=== PATIENT | male | born 1955 | race Caucasian/White ===

== ENCOUNTER 2025-07-12 06:01 | Day surgery (SDC) | payer MEDICARE, SELFPAY ==
[2025-07-11 08:10] VITALS: BMI 27.6
[2025-07-12 06:23] LABS: Hematocrit 42.4 % (40-54); Hemoglobin 15.1 g/dL (13.0-16.5); Mean Corp Hgb Conc 35.6 g/dL (32-36); Mean Corpuscular Volume 92.0 fL (80-94); Mean Platelet Vol. 9.1 fl (6.2-12.0); Platelet Count 312 K/mm3 (150-450); RBC Distribution Width CV 13.0 % (11.6-14.6); RBC Distribution Width SD 43.4 fl (35.1-43.9); Red Blood Count 4.61 M/mm3 (4.6-6.2); White Blood Count 6.9 K/mm3 (4.4-11.0)
[2025-07-12 06:42] LABS: Anion Gap 10 (5-15); BUN 26 mg/dL (4-19); BUN/Creat Ratio 20.8 RATIO (10-20); Calcium,Total 9.7 mg/dL (7.6-11.0); Carbon Dioxide 29.1 mmol/L (21.0-32.0); Chloride 104 mmol/L (98-108); Estimated Creatinine Clearance 55.67 ml/min (50-250); Glucose 132 mg/dL (70-99); Potassium 4.1 mmol/L (3.3-5.1)
--- NOTE | 2025-07-12 09:54 | PCM.OPRPT ---
Operative Report (Standard) Operative Information Date of Procedure: 07/12/25 Pre-Operative Diagnosis: History of VTE Post-Operative Diagnosis: Same Surgery/Procedure Performed: Insertion inferior vena cava filter immunochemist: No Type of Anesthesia: Local and Sedation,Conscious Procedure Start Time: 09:00 Procedure Stop Time: :15 Select all DRAINS/GRAFTS/IMPLANTS that apply: Implanted device Implanted device details: Cook Celect IVC Filter Estimated Blood Loss: 2 Specimen collected: No Description of surgery: HPI: Patient is a 70-year-old male with recent pulmonary embolism who had completed his course of anticoagulation. He anticipates having hip replacement surgery the first in the next couple of weeks followed by the contralateral side shortly after. Given his history and the high risk nature of the procedures associated with VTE he is felt to be appropriate for filter placement. Description of procedure: Upon obtaining informed consent and verification of correct patient procedure and site the patient was taken to the [facility] where he was positioned prepped and draped in usual sterile fashion. Timeout was performed upon sedation administered Versed and fentanyl. Skin overlying the right common femoral vein was anesthetized with 1% lidocaine the vessel accessed under ultrasound guidance with a micropuncture needle wire. This was then exchanged for a micropuncture sheath through which hand-injection ilio caval venogram was performed revealing satisfactory positioning with no extravasation or dissection. This also confirmed patent iliac vein and vena cava of normal caliber with no significant tortuosity. Through the micropuncture sheath a J-wire was advanced and the micropuncture sheath exchanged for the dilator for the Cook Celect filter system. This was then exchanged for the Cook delivery sheath advanced into position at the L2 vertebral body. From this position digital traction venacavogram was performed confirming the confluence of the renal veins. This location was marked and the dilator withdrawn. The Cook Celect filter was then advanced and the position deployed below the lowest renal vein. Completion venacavogram confirmed satisfactory positioning with no significant tilt. The sheath was then withdrawn and manual pressure held until hemostasis was observed. The patient was then taken to the recovery area planned discharge to home after bedrest. Surgical Findings: See above Complications Complications: No
== END 2025-07-12 11:25 | disposition home or self-care (01) ==
PROVIDERS: Physician Assistant; PCP Nurse Practitioner Family; Referring Provider Surgery Trauma Surgery; Visit Provider Surgery Trauma Surgery
DX: Z45.89 Encounter for adjustment and management of other implanted devices (principal); Z86.711 Personal history of pulmonary embolism; I10 Essential (primary) hypertension
CPT/HCPCS: 36415; 37191; 76937; 80048; 85027; 99152; 99153; C1880; C1894; Q9967; C1769

== ENCOUNTER 2025-07-18 15:38 | Inpatient (IN) | payer MEDICARE, SELFPAY ==
[2025-07-18] VITALS (14 sets, daily range): BP systolic 121–153; BP diastolic 60–86; PULSE 75–101; RESP 13–23; TEMP 36.3–36.7; O2SAT 96–100; BMI 27.8
--- OUTSIDE RECORDS SUMMARY | 2025-07-18 16:01 | XMS RPT_ITS | CCD ---
Author Organization [facility] Care Team Providers Care Bailer Tenders Supervisor Name Role Phone MARIZOL BURNETT MD Admitting Unavailable RAKEL HOLLIDAY Consulting Unavailable LAURITA PAL, DR BELCHER Attending Unavailable Balderrama, Airam Attending Unavailable Fernandez, Nupur Primary Care Unavailable Fernandez, Nupur Referring Unavailable Marcio, Karena Primary Care Unavailable Balderrama, Airam Consulting Unavailable Cory, Sammy Attending Unavailable [place], Sammy Referring Unavailable Cory, Sammy Consulting Unavailable [place], Sammy Referring Unavailable Marcio, Karena Primary Care Unavailable Balderrama, Airam Consulting Unavailable Cory, Sammy Attending Unavailable FERNANDEZ, NUPUR Referring Unavailable FERNANDEZ, NUPUR Consulting Unavailable STEFANO IQBAL Attending Unavailable STEFANO IQBAL Primary Care Unavailable STEFANO IQBAL Admitting Unavailable PROVIDER, UNKNOWN Consulting Unavailable PROVIDER, UNKNOWN Consulting Unavailable PROVIDER, UNKNOWN Consulting Unavailable MARCIO, KARENA Consulting Unavailable MARCIO, KARENA Referring Unavailable BRANDON PAZ Attending Unavailable BRANDON PAZ Primary Care Unavailable BRANDON PAZ Admitting Unavailable PROVIDER, UNKNOWN Consulting Unavailable MARCIO, KARENA Consulting Unavailable MARCIO, KARENA Referring Unavailable ABIOLA STAPLETON MD Attending Unavailable ABIOLA STAPLETON MD Primary Care Unavailable ABIOLA STAPLETON MD Admitting Unavailable PROVIDER, UNKNOWN Consulting Unavailable MARCIO, KARENA Consulting Unavailable KRISTA KRISHNAMURTHY DR Attending Unavailable KRISTA KRISHNAMURTHY DR Primary Care Unavailable KRISTA KRISHNAMURTHY DR Admitting Unavailable PROVIDER, UNKNOWN Consulting Unavailable MARCIO, KARENA Primary Care Unavailable MARCIO, KARENA Admitting Unavailable MARCIO KARENA Attending Unavailable MARCIO, KARENA Consulting Unavailable PROVIDER, UNKNOWN Consulting Unavailable MARCIO, KARENA Consulting Unavailable KRISTA KRISHNAMURTHY DR Primary Care Unavailable KRISTA KRISHNAMURTHY DR Admitting Unavailable KRISTA KRISHNAMURTHY DR Attending Unavailable PROVIDER, UNKNOWN Consulting Unavailable MARCIO, KARENA Consulting Unavailable MARCIO, KARENA Primary Care Unavailable MARCIO, KARENA Admitting Unavailable MARCIO, KARENA Attending Unavailable PROVIDER, UNKNOWN Consulting Unavailable MARCIO, KARENA Consulting Unavailable KRISTA KRISHNAMURTHY DR Attending Unavailable KRISTA KRISHNAMURTHY DR Primary Care Unavailable KRISTA KRISHNAMURTHY DR Admitting Unavailable PROVIDER, UNKNOWN Consulting Unavailable MARCIO, KARENA Primary Care Unavailable MARCIO, KARENA Admitting Unavailable MARCIO, KARENA Attending Unavailable MARCIO, KARENA Consulting Unavailable PROVIDER, UNKNOWN Consulting Unavailable MARCIO, KARENA Consulting Unavailable KRISTA KRISHNAMURTHY DR Attending Unavailable KRISTA KRISHNAMURTHY DR Primary Care Unavailable KRISTA KRISHNAMURTHY DR Admitting Unavailable PROVIDER, UNKNOWN Consulting Unavailable MARCIO, KARENA Consulting Unavailable MARCIO, KARENA Primary Care Unavailable MARCIO, KARENA Admitting Unavailable MARCIO, KARENA Attending Unavailable PROVIDER, UNKNOWN Consulting Unavailable MARCIO, KARENA Consulting Unavailable MARCIO, KARENA Referring Unavailable BRANDON PAZ Attending Unavailable BRANDON PAZ Primary Care Unavailable BRANDON PAZ Admitting Unavailable PROVIDER, UNKNOWN Consulting Unavailable Medications Current Medications Medication Drug Class(es) Dates Sig (Normalized) Sig (Original) acetaminophen 325 mg / HYDROcodone bitartrate 10 mg oral tablet (1 source) Opioid Agonist Start: 04-15-2025 acetaminophen-h ydrocodone 325 mg-10 mg oral tablet 0 Refill(s) Start Date: 04/15/25 Status: Ordered Repeat number: 1 apixaban 5 mg oral tablet (1 source) Factor Xa Inhibitor Start: 04-15-2025 Eliquis 5 mg oral tablet Dose : 5 mg = 1 tab(s), Oral, BID, 0 Refill(s) Start Date: 04/15/25 Status: Ordered Repeat number: 1 hydroCHLOROthiazide 25 mg / losartan potassium 100 mg oral tablet (1 source) Thiazide Diuretic, Angiotensin 2 Receptor Jerry Start: 04-15-2025 take 1 tablet by mouth once daily hydrochlorothia zide-losartan 25-100 mg oral tablet Dose = 1 tab(s), Oral, qDay, 0 Refill(s) Start Date: 04/15/25 Status: Ordered Repeat number: 1 Problems Active Problems Problem Classification Problem Date Documented Da te Episodic/Chronic Essential hypertension (5 sources) Essential (primary) hypertension; Translations: [Essential (primary) hypertension] Onset: 10-26-2024 Chronic Nonspecific chest pain (1 source) Other chest pain; Translations: [Other chest pain] Onset: 04-15-2025 Episodic Osteoarthritis (1 source) Unilateral primary osteoarthritis, left hip; Translations: [Unilateral primary osteoarthritis, left hip] Onset: 11-21-2024 Chronic Phlebitis; thrombophlebitis and thromboembolism (3 sources) Personal history of other venous thrombosis and embolism; Translations: [Personal history of other venous thrombosis and embolism] Onset: 04-15-2025 Episodic Pulmonary heart disease (2 sources) Personal history of pulmonary embolism; Translations: [Other pulmonary embolism without acute cor pulmonale] Onset: 04-15-2025 Episodic Past or Other Problems Problem Classification Problem Date Documented Date Episodic/Chronic Abdominal hernia (1 source) Unspecified abdominal hernia without obstruction or gangrene; Translations: [Unspecified abdominal hernia without obstruction or gangrene] Onset: 09-20-2024 Episodic Genitourinary symptoms and ill-defined conditions (1 source) Urgency of urination; Translations: [Urgency of urination] Onset: 10-26-2024 Episodic Noninfectious gastroenteritis (3 sources) Noninfective gastroenteritis and colitis, unspecified; Translations: [Noninfective gastroenteritis and colitis, unspecified] Onset: 09-20-2024 Episodic Other aftercare (1 source) Other senior living (current) drug therapy; Translations: [Other continuous churn buttermaker (current) drug therapy] Onset: 11-21-2024 Episodic Other non-traumatic joint disorders (1 source) Pain in right hip; Translations: [Pain in right hip] Onset: 10-26-2024 Episodic Other non-traumatic joint disorders (1 source) Pain in left hip; Translations: [Pain in left hip] Onset: 10-26-2024 Episodic Other screening for suspected conditions (not mental disorders or infectious disease) (2 sources) Encounter for screening for lipoid disorders; Translations: [Encounter for screening for malignant neoplasm of prostate] Onset: 10-26-2024 Episodic Spondylosis; intervertebral disc disorders; other back problems (1 source) Lumbago with sciatica, unspecified side; Translations: [Lumbago with sciatica, unspecified side] Onset: 10-26-2024 Episodic Results Test Name Value Interpretation Reference Range Facility Basic Metabolic Profile (BMP )on 07-12-2025 BUN/CRE 20.8 RATIO High 07-17 [facility] Comment on above: Performed By: #### L 500.2500, L100.0500 #### [facility] [address] [place], [address] Calcium [Mass/Vol] 9.7 mg/dL Normal 7.6-11.0 [facility] Comment on above: Performed By: #### L 500.2500, L100.0500 #### [facility] [address] [place], [address] Chloride [Moles/Vol] 104 mmol/L Normal 98-108 [facility] Comment on above: Performed By: #### L 500.2500, L100.0500 #### [facility] [address] [place], [address] CO2 [Moles/Vol] 29.1 mmol/L Normal 21.0-32.0 [facility] Comment on above: Performed By: #### L 500.2500, L100.0500 #### [facility] [address] [place], [address] Creatinine [Mass/Vol] 1.27 mg/dL High 0.70-1.20 [facility] Comment on above: Performed By: #### L 500.2500, L100.0500 #### [facility] [address] [place], [address] ECRCL 55.67 ml/min Normal 50-250 [facility] Comment on above: Performed By: #### L 500.2500, L100.0500 #### [facility] [address] [place], [address] GAP 10 Normal 5-15 [facility] Comment on above: Performed By: #### L 500.2500, L100.0500 #### [facility] [address] [place], [address] GFR/1.73 sq M.predicted among non-blacks MDRD (S/P/Bld) [Vol rate/Area] 62 mL/min/{1.73_m2} Normal >60 [facility] Comment on above: Result Comment: mL/m in/1.73m2 CKD-EPI Creatinine Equation (2020) Performed By: #### L 500.2500, L100.0500 #### [facility] [address] [place], [address] Glucose [Mass/Vol] 132 mg/dL High 70-99 [facility] Comment on above: Performed By: #### L 500.2500, L100.0500 #### [facility] [address] [place], [address] Potassium [Moles/Vol] 4.1 mmol/L Normal 3.3-5.1 [facility] Comment on above: Performed By: #### L 500.2500, L100.0500 #### [facility] [address] [place], [address] Sodium [Moles/Vol] 143 mmol/L Normal 133-145 [facility] Comment on above: Performed By: #### L 500.2500, L100.0500 #### [facility] [address] [place], [address] Urea nitrogen [Mass/Vol] 26 mg/dL High 4-19 [facility] Comment on above: Performed By: #### L 500.2500, L100.0500 #### [facility] [address] [place], [address] CBC-Complete Blood Cnt No Di ffon 07-12-2025 Erythrocyte distribution width (RBC) [Ratio] 13.0 % Normal 11.6-14.6 [facility] Comment on above: Performed By: #### L 500.2500, L100.0500 #### [facility] [address] [place], [address] Hematocrit (Bld) [Volume fraction] 42.4 % Normal 40-54 [facility] Comment on above: Performed By: #### L 500.2500, L100.0500 #### [facility] [address] [place], [address] Hemoglobin (Bld) [Mass/Vol] 15.1 g/dL Normal 13.0-16.5 [facility] Comment on above: Performed By: #### L 500.2500, L100.0500 #### [facility] [address] [place], [address] MCH (RBC) [Entitic mass] 32.8 pg High 27.0-32.0 [facility] Comment on above: Performed By: #### L 500.2500, L100.0500 #### [facility] [address] [place], [address] MCHC (RBC) [Mass/Vol] 35.6 g/dL Normal 32-36 [facility] Comment on above: Performed By: #### L 500.2500, L100.0500 #### [facility] [address] [place], [address] MCV (RBC) [Entitic vol] 92.0 fL Normal 80-94 [facility] Comment on above: Performed By: #### L 500.2500, L100.0500 #### [facility] [address] [place], [address] Platelet mean volume (Bld) [Entitic vol] 9.1 fL Normal 6.2-12.0 [facility] Comment on above: Performed By: #### L 500.2500, L100.0500 #### [facility] [address] [place], [address] Platelets (Bld) [#/Vol] 312 10*3/uL Normal 150-450 [facility] Comment on above: Performed By: #### L 500.2500, L100.0500 #### [facility] [address] [place], [address] RBC (Bld) [#/Vol] 4.61 10*6/uL Normal 4.6-6.[address] [facility] Comment on above: Performed By: #### L 500.2500, L100.0500 #### [facility] [address] [place], [address] RDW SD 43.4 fl Normal 35.1-43.9 [facility] Comment on above: Performed By: #### L 500.2500, L100.0500 #### [facility] [address] [place], [address] WBC (Bld) [#/Vol] 6.9 10*3/uL Normal 4.4-11.0 [facility] Comment on above: Performed By: #### L 500.2500, L100.0500 #### [facility] [address] [place], [address] Operative Reporton 5 Operative Report [facility] Medical Records Department [address] [place] [address] Operative Report 07/12/25 0954 MR#: [id number] Acct: [id number] Name: MIAN FOSS Rep #: [id number] : 1955 70 From: Sammy Ray MD PCP: MAURICE Bonner Status:[employer] Location: [facility] Operative Report (Standard) Operative Information Date of Procedure: 07/12/25 Pre-Operative Diagnosis: History of VTE Post-Operative Diagnosis: Same Surgery/Procedure Performed: Insertion inferior vena cava filter 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 He anticipates having hip replacement surgery the first in the next couple of weeks followed by the contralateral side shortly after. Given his history and the high risk nature of the procedures associated with VTE he is felt to be appropriate for filter placement. Description of procedure: Upon obtaining informed consent and verification of correct patient procedure and site the patient was taken to the Director Of Instructional Technology where he was positioned prepped and draped in usual sterile fashion. Timeout was performed upon sedation administered Versed and fentanyl. Skin overlying the right common femoral vein was anesthetized with 1% lidocaine the vessel accessed under ultrasound guidance with a micropuncture needle wire. This was then exchanged for a micropuncture sheath through which hand-injection ilio caval venogram was performed revealing satisfactory positioning with no extravasation or dissection. This also confirmed patent iliac vein and vena cava of normal caliber with no significant tortuosity. Through the micropuncture sheath a J-wire was advanced and the micropuncture sheath exchanged for the dilator for the Cook Celect filter system. This was then exchanged for the Cook delivery sheath advanced into position at the L2 vertebral body. From this position digital traction venacavogram was performed confirming the confluence of the renal veins. This location was marked and the dilator withdrawn. The Cook Celect filter was then advanced and the position deployed below the lowest renal vein. Completion venacavogram confirmed satisfactory positioning with no significant tilt. The sheath was then withdrawn and manual pressure held until hemostasis was observed. The patient was then taken to the recovery area planned discharge to home after bedrest. Surgical Findings: See above Complications Complications: No 07/12/25 1000 Cosigner Signature (if applicable): CC: MAURICE Suggs; PITER Pearson; Dr. Sammy Ray MD Signed Normal [facility] MR/BMS.BVSon 07-07-2025 MR/BMS.BVS [facility] [address] [place] [address]. 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 Accompanied by: family Is patient in pain?: Yes (bilat back and hips 5-10 depends on moving.) Pain scale (1-10): 5 Allergies No Known Allergies Allergy (Unverified 07/07/25 14:10) Medications ???Medication ???Instructions ???Recorded ???Confirmed ???Type hydrocodone 10 mg-acetaminophen 1 tab PO Q8 PRN severe pain 07/07/25 History 325 mg tablet losartan 100 1 tab PO QDAY 07/07/25 07/07/25 Hi story mg-hydrochlorothiazid e 25 mg tablet Have you fallen in the past year?: No PFSH Medical History Hernia Social History Smoking Status: Never smoker HPI HPI HPI: MIAN FOSS, is a 70 M who presents to the office today for consultation for consideration of IVC filter placement. He has upcoming L total hip replacement planned with Dr. Krishnamurthy of [facility] later this month. He is also anticipating getting his R hip replaced once he is recovered from the L hip. He recently had RLE DVT and PE in October 2024 for which he was anticoagulated and repeat imaging in 05/2025 showed resolved PE and DVT after which he discontinued anticoagulation and so far no recurrent symptoms. This RLE DVT/PE was unprovoked; the only provoking factor he can point to is general inactivity secondary to his severe hip OA though which has been a chronic issue. He otherwise denies any preceding travel, illness, or hospitalization. He reports no changes to bowel habits, persistent cough, bloody stools/blood in urine, or other unusual symptoms. He reports no family history of clotting disorders. He has not had any prior VTE. He denies any history of abdominal/pelvic radiation; the only other surgery he has had was hernia repair. ROS General General: No weight change, appetite, fatigue, colon cancer, breast cancer or weakness HEENT HEENT: No difficulty swallowing, eye injury, eye surgery, swollen glands or hoarseness Endo Endocrine: No thyroid disease, diabetes mellitus, thyroid cancer, Hair loss, heat intolerance or cold intolerance Skin Skin: No rash or changing moles Musc Musculoskeletal: Yes back problems, arthritis and joint pain Cardio Cardiovascular: Yes high blood pressure; No murmur, pacemaker, heart disease, atrial fibrillation, heart attack, heart stent, palpitations, shortness of breath with exertion or chest pain Psych Psychiatric: No depression, anxiety or hearing voices Resp Respiratory: No shortness of breath, No sleep apnea, No cough, No COPD, No asthma, No emphysema and No wheezing Gastro Gastrointestinal: No abdominal pain, No nausea or vomiting, No diarrhea, No constipation, No blood in stool, No acid reflux, No hemorrhoids, No ulcers, No gallbladder problem and No black,tarry stools Ibrahima Hematologic: No blood thinners, No blood disorders, No bleeding, No anemia and No blood clots Neuro Neurologic: No system reviewed and no additional complaints, except as documented, No as per HPI, No abnormal gait, No abnormal hearing, No abnormal movements, No abnormal speech, No behavioral changes, No burning sensations, No confusion, No convulsions, No disequilibrium, No dizziness, No localized weakness, No frequent falls, No headache(s), No lack of coordination, No loss of vision, No memory loss, No numbness, No other visual disturbances, No radicular pain, No restless legs, No sensory deficit, No syncope, No tingling, No tremor(s), No weakness and No other Exam Const General: cooperative, healthy appearing, comfortable and no acute distress Nutritional Appearance: average body habitus Orientation: alert, awake and oriented x3 [facility] Head: normocephalic and atraumatic Ears: hearing grossly normal bilaterally and external ears normal Nose: external nose normal Eyes General: appearance normal, both eyes and all related structures Neck Neck: normal visual inspection and trachea midline Resp Effort Inspection: normal respiratory effort, able to speak in complete sentences, no grunting, not labored, no respiratory distress and no retractions Ausc (more content not included)... Normal [facility] ALBUMIN PLASMAon 06-22-2025 Albumin [Mass/Vol] 3.5 g/dL Normal 3.4 - 5.0 [facility] Comment on above: Performed By: #### 2 [id number] #### [facility],[address] [place] [address] BMP with eGFRon 06-22-2025 AGE 70 years Normal [facility] Comment on above: Performed By: #### 2 90533 #### [facility],[address] [place] [address] Anion gap [Moles/Vol] 8 mmol/L Low 10 - 20 [facility] Comment on above: Performed By: #### 2 99173 #### [facility],[address] [place] [address]202 BMP with eGFR Normal [facility] Comment on above: Result Comment: BASI C METABOLIC PANEL Performed By: #### 2 46948 #### [facility],[address] [place] [address] Calcium [Mass/Vol] 9.2 mg/dL Normal 8.5 - 10.1 [facility] Comment on above: Performed By: #### 2 28134 #### [facility],[address] [place] [address] Chloride [Moles/Vol] 101 mmol/L Normal 98 - 107 [facility] Comment on above: Performed By: #### 2 27960 #### [facility],[address] [place] [address] CO2 [Moles/Vol] 34.0 mmol/L High 21.0 - 32.0 [facility] Comment on above: Performed By: #### 2 16317 #### [facility],[address] [place] [address] Creatinine [Mass/Vol] 1.20 mg/dL Normal 0.70 - 1.30 [facility] Comment on above: Performed By: #### 2 02954 #### [facility],[address] [place] [address]60 eGFR 60 ML/MINUTE Normal 60 - 999 [facility] Comment on above: Performed By: #### 2 16883 #### [address] [address] GFR/1.73 sq M.predicted among non-blacks MDRD (S/P/Bld) [Vol rate/Area] mL/min/{1.73_m2} Normal 60 - 999 [facility] Comment on above: Result Comment: ACCO RDING TO THE NATIONAL KIDNEY DISEASE EDUCATION PROGRAM(NKDE), A NORMAL eGFR IS A VALUE GREATER THAN OR EQUAL TO 60 ML/MIN/1.73 SQ METERS. CHRONIC KIDNEY DISEASE: <60mL/MIN/1.73 SQ METERS KIDNEY FAILURE: <15mL/MIN/1.73 SQ METERS THIS TEST SHOULD ONLY BE USED FOR PATIENTS 18 YEARS OF AGE AND OLDER. Performed By: #### 2 36481 #### [address] [address] Glucose [Mass/Vol] 109 mg/dL High 74 - 106 [facility] Comment on above: Performed By: #### 2 28110 #### [address] [address] Potassium [Moles/Vol] 4.2 mmol/L Normal 3.5 - 5.1 [facility] Comment on above: Performed By: #### 2 28842 #### [address] [address] Sodium [Moles/Vol] 139 mmol/L Normal 136 - 145 [facility] Comment on above: Performed By: #### 2 37267 #### [address] [address] Urea nitrogen [Mass/Vol] 24 mg/dL High 7 - 18 [facility] Comment on above: Performed By: #### 2 19590 #### [address] [address] CBC + DIFFon 06-22-2025 Baso # 0.02 x10EE3/UL Normal 0.00 - 0.10 [facility] Comment on above: Performed By: #### 2 36862 #### [address] [address] Basophils/100 WBC (Bld) 0.3 % Normal 0.0 - 2.0 [facility] Comment on above: Performed By: #### 2 77795 #### [facility],[address] [place] [address] CBC + DIFF Normal [facility] Comment on above: Result Comment: CBC- COMPLETE BLOOD COUNT Performed By: #### 2 04090 #### [facility],[address] [place] [address] EO # 0.05 x10EE3/UL Normal 0.00 - 0.50 [facility] Comment on above: Performed By: #### 2 98180 #### [facility],[address] [place] [address] Eosinophils/100 WBC (Bld) 0.7 % Normal 0.0 - 7.0 [facility] Comment on above: Performed By: #### 2 32317 #### [facility],[address] [place] [address] 07000 Erythrocyte distribution width (RBC) [Ratio] 12.9 % Normal 12.0 - 15.6 [facility] Comment on above: Performed By: #### 2 77807 #### [facility],[address] [place] [address] 90215 Hematocrit (Bld) [Volume fraction] 43.6 % Normal 40.0 - 52.0 [facility] Comment on above: Performed By: #### 2 11713 #### [facility],[address] [place] [address] 59252 Hemoglobin (Bld) [Mass/Vol] 15.3 g/dL Normal 13.0 - 17.5 [facility] Comment on above: Performed By: #### 2 38023 #### [facility],[address] [place] [address] 34864 Lymph # 1.82 x10EE3/UL Normal 0.80 - 2.80 [facility] Comment on above: Performed By: #### 2 83746 #### [facility],[address] [place] [address] 04267 Lymphocytes/100 WBC (Bld) 26.1 % Normal 20.0 - 45.0 [facility] Comment on above: Performed By: #### 2 15427 #### [facility],[address] [place] [address] 54826 MANUAL DIFF N/A Normal [facility] Comment on above: Performed By: #### 2 96810 #### [facility],[address] [place], [place] [id number] MCH (RBC) [Entitic mass] 33 pg Normal 27 - 33 [facility] Comment on above: Performed By: #### 2 84419 #### [place] [address] MCHC 35 X10 3 Normal 32 - 36 [facility] Comment on above: Performed By: #### 2 51605 #### [facility],[address] [place] [address] 72821 MCV (RBC) [Entitic vol] 93 fL Normal 81 - 98 [facility] Comment on above: Performed By: #### 2 71012 #### [facility],[address] [place] [address] 47520 [place] # 0.55 x10EE3/UL Normal 0.20 - 1.00 [facility] Comment on above: Performed By: #### 2 37894 #### [facility],[address] [place] [address] 08714 MONOS % 7.9 % Normal 0.0 - 10.0 [facility] Comment on above: Performed By: #### 2 81148 #### [facility],[address] [place] [address] 70340 Morphology Félix (Bld) [Interp] N/A Normal [facility] Comment on above: Performed By: #### 2 15473 #### [facility],[address] [place] [address] 70669 Neut # 4.54 x10EE3/UL Normal 1.50 - 7.10 [facility] Comment on above: Performed By: #### 2 48064 #### [facility],[address] [place] [address] 94917 Neutrophils/100 WBC (Bld) 65.0 % Normal 46.0 - 76.0 [facility] Comment on above: Performed By: #### 2 06123 #### [address] [address] PLATELET 280 x10EE3/UL Normal 150 - 450 [facility] Comment on above: Performed By: #### 2 92702 #### [address] [address] Platelet mean volume (Bld) [Entitic vol] 7.6 fL Normal 6.4 - 10.5 [facility] Comment on above: Result Comment: AUTO MATED DIFFERENTIAL Performed By: #### 2 12468 #### [address] [address] RBC 4.67 x 10EE6/UL Normal 4.50 - 6.00 [facility] Comment on above: Performed By: #### 2 23551 #### [facility],[address] [place] [address] 00625 WBC 7.0 x 10EE3/UL Normal 4.5 - 10.8 [facility] Comment on above: Performed By: #### 2 44910 #### [address] [address] CREATININEon 06-02-2025 AGE 70 years Normal [facility] Comment on above: Performed By: #### 2 43363 #### [address] [address] Creatinine [Mass/Vol] 1.23 mg/dL Normal 0.70 - 1.30 [facility] Comment on above: Performed By: #### 2 72006 #### [facility],[address] [place] [address] 11365 eGFR 59 ML/MINUTE Low 60 - 999 [facility] Comment on above: Performed By: #### 2 11115 #### [facility],[address] [place] [address] 89556 GFR/1.73 sq M.predicted among non-blacks MDRD (S/P/Bld) [Vol rate/Area] mL/min/{1.73_m2} Normal 60 - 999 [facility] Comment on above: Performed By: #### 2 94879 #### [facility],[address] [place] [address] CHEST (PE PROTOCOL)on CT CHEST (PE PROTOCOL) [place] [address] Patient: MIAN FOSS Phone#: : 1955 Age: 70 Gender: M Pt. Type: Out Account: [id number] Location: [facility] Ordering: KARENA SUGGS Exam Date: 06/02/2025/13:29 Family Phys: Charge Code: [id number] Physician: Norman Order #: [id number] Dose#: 6.4 mGy PROCEDURE: CT CHEST WITH CONTRAST FOR PE COMPARISON: [facility], CT, ABDOMEN/PELVIS W CON, 04/14/2025, 21:16. [facility], CT, CHEST PE W CON, 11/28/2024, 12:13. INDICATIONS: Pulmonary embolus re-evaluation. TECHNIQUE: After obtaining the patient's consent, CT images were obtained with non-ionic intravenous contrast material. Multi-planar images were created to optimize visualization of vascular anatomy with MPR/MIPS and 3D imaging. All CT scans at this facility use dose modulation, iterative reconstruction, and/or weight based dosing when appropriate to reduce radiation dose to as low as reasonably achievable. IV CONTRAST: Omnipaque 350,100ml TOTAL DOSE: 6.4 CTDIvol(mGy) FINDINGS: Respiratory motion limits evaluation. VASCULATURE: Interval resolution of pulmonary embolus and right lower lobe pulmonary artery. AORTA: No aortic aneurysm. LUNGS: Respiratory motion limits evaluation. The dependent changes. NESTOR: Normal. No mass or adenopathy. MEDIASTINUM: Numerous small mediastinal lymph nodes, uncertain etiology but similar to prior. CARDIAC: Normal. No enlargement, pericardial thickening, or significant calcification. PLEURA: Normal. No mass or effusion. CHEST WALL: Normal. No mass or axillary adenopathy. LIMITED ABDOMEN: There are two accessory right renal arteries. Low-attenuation lesion in the caudate, incompletely characterized on this exam but similar to prior, it measures 1.1 x 1.2 cm. This is consistent with a cyst on comparison CT abdomen. BONES: Degenerative changes of the right shoulder with spurring of the glenoid. Degenerative changes of the lower cervical spine. OTHER: Negative. Continued Report - Page 2 of 2 Patient: RADHAMARISSARONNIY Kwaku Phone#: : 1955 Age: 70 Gender: M Pt. Type: Out Account: [id number] Location: 052 Ordering: KARENA SUGGS Exam Date: 06/02/2025/13:29 Family Phys: Charge Code: [id number] Physician: Norman Order #: [id number] Dose#: 6.4 mGy CONCLUSION: 1. Interval resolution of the previously identified right lower lobe pulmonary embolism. No new pulmonary emboli. Dictated by: Luana Layne MD on 06/02/2025 at 16:29 Approved by: Luana Layne MD on 06/02/2025 at 16:37 Normal [facility] CV VENOUS LEG RTon CV VENOUS LEG RT [place] [address] Patient: PIPO MIAN C. Phone#: : 1955 Age: 70 Gender: M Pt. Type: Out Account: [id number] Location: 052 Ordering: KARENA SUGGS Exam Date: 06/01/2025/7:51 Family Phys: Charge Code: [id number] Physician: Norman Order #: [id number] Dose#: PROCEDURE: VENOUS DOPPLER RT LEG COMPARISON: None. INDICATIONS: Follow up TECHNIQUE: Color duplex Doppler ultrasound evaluation analysis was performed in the usual manner. CHEMISTRY SPECIALIST: EMORY HO RVWinnie RDCS RISK FACTORS FOR VENOUS DISEASE: Previous DVT or SVT Rt leg Blood thinner Other Follow up EXAMINATION: RIGHT +Present -Reduced o Absent LEFT SPONT PHASIC AUG REFLUX COMP SPONT PHASIC AUG REFLUX COMP + + + o + CFV + + + o + + SFJ + + + o + FV (prox) + FV (mid) + FV (dist) + + + o + POP V + + + o + T/P TRUNK + + + o + PTV + + + o + PERONEAL V + GSV GASTROC SOLEAL V CHEMISTRY SPECIALIST'S NOTES: RT PV difficult to visualize. FINDINGS: Continued Report - Page 2 of 2 Patient: MIAN FOSS Phone#: : 1955 Age: 70 Gender: M Pt. Type: Out Account: [id number] Location: 052 Ordering: KARENA SUGGS Exam Date: 06/01/2025/7:51 Family Phys: Charge Code: [id number] Physician: Norman Order #: [id number] Dose#: THROMBI: None visible. COMPRESSIBILITY: Normal. OTHER: Negative. CONCLUSION: 1. There is no evidence of superficial or deep vein thrombus. Dictated by: Maura Quispe MD on 06/01/2025 at 11:35 Approved by: Maura Quispe MD on 06/01/2025 at 11:36 Normal [facility] CBC + DIFFon 04-25-2025 Baso # 0.02 x10EE3/UL Normal 0.00 - 0.10 [facility] Comment on above: Performed By: #### 2 56600 #### [facility],[address] [place] [address] Basophils/100 WBC (Bld) 0.3 % Normal 0.0 - 2.0 [facility] Comment on above: Performed By: #### 2 06322 #### [place] [address] CBC + DIFF Normal [facility] Comment on above: Result Comment: CBC- COMPLETE BLOOD COUNT Performed By: #### 2 45008 #### [facility],[address] [place] [address] EO # 0.05 x10EE3/UL Normal 0.00 - 0.50 [facility] Comment on above: Performed By: #### 2 83412 #### [place] [address] Eosinophils/100 WBC (Bld) 0.7 % Normal 0.0 - 7.0 [facility] Comment on above: Performed By: #### 2 16657 #### [place] [address] Erythrocyte distribution width (RBC) [Ratio] 13.3 % Normal 12.0 - 15.6 [facility] Comment on above: Performed By: #### 2 15787 #### [place] [address] Hematocrit (Bld) [Volume fraction] 42.7 % Normal 40.0 - 52.0 [facility] Comment on above: Performed By: #### 2 33874 #### [place] [address] Hemoglobin (Bld) [Mass/Vol] 15.3 g/dL Normal 13.0 - 17.5 [facility] Comment on above: Result Comment: H AN D H REPEATED Performed By: #### 2 69001 #### [place] [address] Lymph # 1.81 x10EE3/UL Normal 0.80 - 2.80 [facility] Comment on above: Performed By: #### 2 17475 #### [facility],[address] [place] [address] Lymphocytes/100 WBC (Bld) 24.2 % Normal 20.0 - 45.0 [facility] Comment on above: Performed By: #### 2 43390 #### [facility],[address] [place] [address] MANUAL DIFF N/A Normal [facility] Comment on above: Performed By: #### 2 60719 #### [facility],[address] [place] [address] MCH (RBC) [Entitic mass] 34 pg High 27 - 33 [facility] Comment on above: Performed By: #### 2 73165 #### [facility],[address] [place] [address] MCHC 36 X10 3 Normal 32 - 36 [facility] Comment on above: Performed By: #### 2 05709 #### [facility],[address] [place] [address] MCV (RBC) [Entitic vol] 94 fL Normal 81 - 98 [facility] Comment on above: Performed By: #### 2 24991 #### [facility],[address] [place] [address] [place] # 0.58 x10EE3/UL Normal 0.20 - 1.00 [facility] Comment on above: Performed By: #### 2 23550 #### [facility],[address] [place] [address] MONOS % 7.8 % Normal 0.0 - 10.0 [facility] Comment on above: Performed By: #### 2 17072 #### [facility],[address] [place], [place] [id number] Morphology Félix (Bld) [Interp] N/A Normal [facility] Comment on above: Performed By: #### 2 19560 #### [facility],[address],[place] [address] Neut # 5.04 x10EE3/UL Normal 1.50 - 7.10 [facility] Comment on above: Performed By: #### 2 44923 #### [facility],[address] [place] [address] 41858 Neutrophils/100 WBC (Bld) 67.1 % Normal 46.0 - 76.0 [facility] Comment on above: Performed By: #### 2 37800 #### [facility],[address] [place] [address] 12406 PLATELET 297 x10EE3/UL Normal 150 - 450 [facility] Comment on above: Performed By: #### 2 82475 #### [facility],[address] [place] [address] 26440 Platelet mean volume (Bld) [Entitic vol] 7.3 fL Normal 6.4 - 10.5 [facility] Comment on above: Result Comment: AUTO MATED DIFFERENTIAL Performed By: #### 2 67381 #### [facility],[address] [place] [address] 20021 RBC 4.54 x 10EE6/UL Normal 4.50 - 6.00 [facility] Comment on above: Performed By: #### 2 95697 #### [facility],[address] [place] [address] 14366 WBC 7.5 x 10EE3/UL Normal 4.5 - 10.8 [facility] Comment on above: Performed By: #### 2 00217 #### [facility],[address] [place] [address] 35269 CMP with eGFRon 04-25-2025 AGE 70 years Normal [facility] Comment on above: Performed By: #### 2 80445 #### [facility],[address] [place] [address] 58021 Albumin [Mass/Vol] 3.8 g/dL Normal 3.4 - 5.0 [facility] Comment on above: Performed By: #### 2 70880 #### [facility],[address] [place] [address] 97691 Albumin/Globulin [Mass ratio] 1.1 {ratio} Normal 0.9 - 1.6 [facility] Comment on above: Performed By: #### 2 10306 #### [facility],[address] [place] [address] 73414 ALK PHOS 66 U/L Normal 46 - 116 [facility] Comment on above: Performed By: #### 2 07560 #### [facility],[address] [place] [address] 67905 ALT [Catalytic activity/Vol] 26 U/L Normal 16 - 63 [facility] Comment on above: Performed By: #### 2 37695 #### [facility],[address] [place] [address] 45272 Anion gap [Moles/Vol] 13 mmol/L Normal 10 - 20 [facility] Comment on above: Performed By: #### 2 60021 #### [facility],[address] [place] [address] 73877 AST [Catalytic activity/Vol] 18 U/L Normal 15 - 37 [facility] Comment on above: Performed By: #### 2 49128 #### [facility],[address] [place] [address] 73579 B/C RATIO 25 ratio Normal 0 - 30 [facility] Comment on above: Performed By: #### 2 85041 #### [facility],[address] [place] [address] 67341 Bilirubin [Mass/Vol] 1.9 mg/dL High 0.2 - 1.0 [facility] Comment on above: Performed By: #### 2 86216 #### [facility],[address] [place] [address] 49054 Calcium [Mass/Vol] 9.5 mg/dL Normal 8.5 - 10.1 [facility] Comment on above: Performed By: #### 2 24785 #### [facility],[address] [place] [address] 15284 Chloride [Moles/Vol] 104 mmol/L Normal 98 - 107 [facility] Comment on above: Performed By: #### 2 18040 #### [facility],[address] [place] [address] 26787 CMP with eGFR Normal [facility] Comment on above: Result Comment: COMP REHENSIVE METABOLIC PANEL Performed By: #### 2 12659 #### [facility],[address] [place] [address] 83026 CO2 [Moles/Vol] 27.0 mmol/L Normal 21.0 - 32.0 [facility] Comment on above: Performed By: #### 2 07808 #### [facility],[address] [place] [address] 35810 Creatinine [Mass/Vol] 1.29 mg/dL Normal 0.70 - 1.30 [facility] Comment on above: Performed By: #### 2 53549 #### [facility],[address] [place] [address] 29366 eGFR 55 ML/MINUTE Low 60 - 999 [facility] Comment on above: Performed By: #### 2 64703 #### [facility],[address] [place] [address] 98113 GFR/1.73 sq M.predicted among non-blacks MDRD (S/P/Bld) [Vol rate/Area] mL/min/{1.73_m2} Normal 60 - 999 [facility] Comment on above: Result Comment: ACCO RDING TO THE NATIONAL KIDNEY DISEASE EDUCATION PROGRAM(NKDE), A NORMAL eGFR IS A VALUE GREATER THAN OR EQUAL TO 60 ML/MIN/1.73 SQ METERS. CHRONIC KIDNEY DISEASE: <60mL/MIN/1.73 SQ METERS KIDNEY FAILURE: <15mL/MIN/1.73 SQ METERS THIS TEST SHOULD ONLY BE USED FOR PATIENTS 18 YEARS OF AGE AND OLDER. Performed By: #### 2 07750 #### [facility] [address] [address] Globulin (S) [Mass/Vol] 3.6 g/dL Normal 1.5 - 3.8 [facility] Comment on above: Performed By: #### 2 07206 #### [facility],[address] [place] [address] 88623 Glucose [Mass/Vol] 95 mg/dL Normal 74 - 106 [facility] Comment on above: Performed By: #### 2 46588 #### [facility],[address] [place] [address] 26500 Potassium [Moles/Vol] 3.4 mmol/L Low 3.5 - 5.1 [facility] Comment on above: Performed By: #### 2 03586 #### [address] [address] Protein [Mass/Vol] 7.4 g/dL Normal 6.4 - 8.2 [facility] Comment on above: Performed By: #### 2 17784 #### [facility],[address] [place] [address] 79044 Sodium [Moles/Vol] 141 mmol/L Normal 136 - 145 [facility] Comment on above: Performed By: #### 2 20715 #### [facility],[address] [place] [address] 75168 Urea nitrogen [Mass/Vol] 32 mg/dL High 7 - 18 [facility] Comment on above: Performed By: #### 2 69378 #### [facility],[address] [place] [address] 10478 ED MED ADMINISTRATION DETAIL on 04-25-2025 ED MED 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 - 19:06 Alondra Limon R.N. 17:45 04/25/2025 (NOW x1) Alondra Limon, 18:42 04/25 Medication Discontinued: bag #1 completed. Total R.N. amount infused: . mL. IV patency established. IV site checked: no Stopped pain, redness, or swelling. IV flushed thoroughly post-medication 18:42 04/25/2025 administration. - 19:07 Maria Isabel Wellington R.N. Not Scanned 1 of 1 Normal [facility] ED NURSES CLINICAL NOTEon ED NURSES CLINICAL NOTE Nurse Narrative Nurse Clinical Narrative [address] [address] [phone] 04/25/2025 16:35:00 Patient: MIAN FOSS Sex: Male : 1955 Age: 70y Disposition: Discharge to Home Disposition Decision Time: 18:48 04/25/2025 Departure Time: 18:50 04/25/2025 TRIAGE Arrived by private vehicle. Historian: (patient). Primary physician (Nathaly Suggs). Triage time: 16:33 04/25/2025. Acuity: LEVEL 3. Chief Complaint: BACK PAIN and (difficulty with bowel movement). Onset. (couple weeks). ( increased in pain this morning). SEPSIS SCREEN: NEGATIVE. SIRS criteria negative: heart rate greater than 90. No possible sources of infection. -- 16:42 04/25/25 EDT Gabriela Ford R.N. 16:39 04/25/25. BP: 143/69 MAP: 94. HR: 93. RR: 17. O2 saturation: 95% Temperature: 97.8 F. Pain level now 4/10. -- 16:39 04/25/25 EDT Gabriela Ford R.N. Measurements: 16:40 04/25/25 Wt: 81.6 kg, Ht/Uriel: 69.0 in, BMI: 26.58 -- 16:40 04/25/25 BEATRIZ Ford R.N. Medications: tramadol 50 mg tablet: Stopped 04/25/2025. -- 16:38 04/25/25 BEATRIZ Ford R.N. hydrocodone 10 mg-acetaminophen 325 mg tablet: TAKE 1 TABLET BY MOUTH EVERY 8 HOURS NEEDED FOR SEVERE PAIN -- 16:38 04/25/25 BEATRIZ Ford R.N. 1 of 4 Nurse Narrative losartan 100 mg-hydrochlorothiazid e 25 mg tablet: 1 tablet once a day. -- 16:38 04/25/25 BEATRIZ Ford R.N. lisinopril 10 mg tablet: 10 mg once a day. -- 16:38 04/25/25 BEATRIZ Ford R.N. Eliquis DVT-PE Treatment 30-Day Starter 5 mg (74 tablets) in dose pack: 1 tablet twice a day. -- 16:38 04/25/25 BEATRIZ Ford R.N. 16:33 04/25/25. Preferred Pharmacy: ([facility]). -- 16:42 04/25/25 BEATRIZ Ford R.N. Allergies: no known drug allergies -- 16:41 04/25/25 BEATRIZ Ford R.N. Home Medications/Allergy Information Source: patient -- 16:41 04/25/25 BEATRIZ Ford R.N. Problems: Hypertension -- 16:41 04/25/25 BEATRIZ Ford R.N. Pulmonary Embolism -- 16:41 04/25/25 BEATRIZ Ford R.N. DVT - Deep Venous Thrombosis -- 16:41 04/25/25 BEATRIZ Ford R.N. Surgeries: Hernia Repair -- 16:41 04/25/25 BEATRIZ Ford R.N. History 16:33 04/25/25. PAST MEDICAL HX: Other immunizations: up-to-date. SOCIAL HX: Never smoker. No alcohol use or drug use. The patient has not traveled outside the [place] Infectious disease exposure: No infectious disease exposure. ABUSE ASSESSMENT: The patient answered yes to the question(s) Do you feel safe in your home? and no to the question(s) Are you afraid to go home?. SELF HARM ASSESSMENT: Self harm assessment was performed. The patient answered no to the 2 of 4 Nurse Narrative question(s) Have you recently felt down, depressed, or hopeless? and Do you have thoughts of harming or killing yourself?. FALL RISK ASSESSMENT: Fall risk assessment completed. Risk factors identified include patient age greater than 65 years. Fall interventions initiated. Patient identified as a fall risk by ID band. -- 16:42 04/25/25 BEATRIZ Ford R.N. Interventions 16:33 04/25/25. Advanced care plan discussed with patient (Full code). -- 16:42 04/25/25 BEATRIZ Ford R.N. PHYSICAL ASSESSMENT 17:50 04/25/25. Ambulatory to room. ( Pt is scheduled for hip surgery, but pt was Dx with blood clots and has to be on Eliquis for a specific time frame before surgery). GENERAL / NEURO / PSYCH: Alert. Oriented X 4. Appears in pain. RESPIRATORY: Respirations not labored. Chest nontender. Breath sounds within normal limits. CVS: Normal heart rate and rhythm. Capillary refill less than 2 seconds. GI / : Abdomen soft and nontender. Bowel sounds within normal limits. EXTREMITIES: Limited ROM present in the right hip and left hip. Sensation intact in extremities. ROM of extremities within normal limits. BACK: Soft tissue tenderness in the right mid and lower and left mid and lower lumbar paraspinous region. Limited ROM of the back. Soft tissue tenderness. -- 17:50 04/25/25 BEATRIZ Limon R.N. NURSING PROGRESS NOTES 17:40 04/25/25. Site #1 started in the right antecubital space with an 18g angiocath with aseptic technique and good blood return; 1 attempt. Blood drawn: rainbow set tube(s). Saline lock flushed with 5 mL saline. -- 17:51 04/25/25 BEATRIZ Limon R.N. 17:45 04/25/25. IV NS 0.9 % 1000 mL started in bag#1 1000 mL at 999 mL/hr via Site# 1. -- 19:06 04/25/25 EDT Alondra Limon R.N. 17:48 04/25/25. Call light placed in reach. Side rails up x 1. Bed placed in lowest position. Brakes of bed on. -- 17:53 04/25/25 EDT Alondra Limon R.N. 18:42 04/25/25. IV NS 0.9 %: Medication Discontinued. bag #1 completed. Total amount infused: . mL. IV patency established. IV site checked: no pain, redness, or swelling. IV fl (more content not included)... Normal [facility] ED ORDER SHEET ([facility]OE ONLY)on 04-25-2025 ED ORDER SHEET (CPOE ONLY) Order Sheet Order Sheet [address] [place] [address] [id number] 04/25/2025 Patient: MIAN FOSS Sex: Male : 1955 Age: 70y MEASUREMENTS: Wt: 81.6 kg, Ht/Uriel: 69.0 in, BMI: 26.58 ALLERGIES: No known drug allergies MEDICATION/IV/DRIP/FL UID ORDERS Order Description Priority Entered Acknowledged Completed IV NS 0.9 %1000 mL at 999 17:05 04/25/2025 17:31 19:06 mL/hr (NOW x1) Brandon Paz, 04/25/2025 04/25/2025 Maria Isabel Chicas R.N. LAB ORDERS Order Description Priority Entered Acknowledged Collected Completed CBC w Diff Stat Stat 17:05 04/25/2025 17:31 04/25/2025 17:50 04/25/2025 Alondra Figueroa D.O., R.N. [place], R.N. CMP Stat Stat 17:05 04/25/2025 17:31 04/25/2025 17:50 04/25/2025 Alondra Figueroa D.O., R.N. [place], R.N. DIAGNOSTIC STUDY ORDERS 1 of 2 Order Sheet Order Description Priority Entered Acknowledged Completed STAFF ORDERS Order Description Priority Entered Acknowledged Collected Completed IV Saline Lock 17:05 04/25/2025 17:31 04/25/2025 17:50 04/25/2025 Alondra Figueroa D.O., R.N. [place], R.N. [Electronically signed by Brandon Paz D.O. (04/25/2025 20:30 EDT)] 2 of 2 Normal [facility] ED PHYSICIAN CLINICAL REPORT on 04-25-2025 ED PHYSICIAN CLINICAL REPORT Narrative Physician Clinical Narrative [facility] [address] [place] [address] [id number] 04/25/2025 16:35:00 Patient: MIAN FOSS Sex: Male : 1955 Age: 70y Disposition: Discharge to Home Disposition Decision Time: 18:48 04/25/2025 Departure Time: 18:50 04/25/2025 Measurements Wt: 81.6 kg, Ht/Uriel: 69.0 in, BMI: 26.58 Initial Vital Sign Measured Time BP MAP HR RR O2Sat ETCO2 Temp Pain GCS RTS 16:39 04/25/2025 143/69 94 93 17 95% 97.8 F 4 Time Seen: 16:33 04/25/2025. Arrived- By private vehicle. Historian- patient. Independent historian- family. HISTORY OF PRESENT ILLNESS Chief Complaint: ABDOMINAL PAIN. This started today Patient came into the emergency department complaining of pain specimens tries to have a bowel movement. Patient has history of back problems and hip problems just a pain medication. And I said her time he has a bowel movement he gets pain he also feels like he is dehydrated he lives at home without air conditioning running he is here with his daughter appears very caring about him. and is still present. The patient has had diarrhea. REVIEW OF SYSTEMS CVS: No chest pain. NEUROLOGICAL: No headache. CONSTITUTIONAL: No fever or chills. : No difficulty with urination. GI: The patient has had constipation. 1 of 8 Narrative PAST HISTORY See nurses notes. DVT - Deep Venous Thrombosis Hypertension Pulmonary Embolism Surgeries: Hernia Repair Medications: Eliquis DVT-PE Treatment 30-Day Starter 5 mg (74 tablets) in dose pack: 1 tablet twice a day. hydrocodone 10 mg-acetaminophen 325 mg tablet: TAKE 1 TABLET BY MOUTH EVERY 8 HOURS NEEDED FOR SEVERE PAIN lisinopril 10 mg tablet: 10 mg once a day. losartan 100 mg-hydrochlorothiazid e 25 mg tablet: 1 tablet once a day. tramadol 50 mg tablet: Stopped 04/25/2025. Allergies: no known drug allergies Home Medications/Allergy Information Source: patient - Gabriela FordMaria Isabel, 04/25/2025 16:41 EDT SOCIAL HISTORY Never smoker. No alcohol use or drug use. ADDITIONAL NOTES The nursing notes have been reviewed. PHYSICAL EXAM Appearance: Alert. Oriented X3. No acute distress. Eyes: Pupils equal, round and reactive to light. Eyes normal inspection. 2 of 8 Narrative ENT: Ears normal. Nose normal. Neck: Normal inspection. Neck supple. CVS: Normal heart rate and rhythm. Heart sounds normal. Respiratory: No respiratory distress. Breath sounds normal. Abdomen: Soft and nontender. Rectal: Rectal exam normal. Skin: Skin warm. Normal skin color. Normal skin turgor. Extremities: Extremities exhibit normal ROM. Neuro: Oriented X 3. No motor deficit. LABS, X-RAYS, AND EKG Laboratory Tests: CBC + DIFF Final JUAN CARLOS: 04/25/2025 17:40:00 EDT MsgRcvd: 04/25/2025 18:12 EDT Lab Test Result Reference Status Received Comments 04/25/2025 18:12 CBC-COMPLETE CBC + DIFF Final EDT BLOOD COUNT 04/25/2025 18:12 WBC 7.5 x 10/UL 4.5 - 10.8 Final EDT 04/25/2025 18:12 RBC 4.54 x 10/UL 4.50 - 6.00 Final EDT 04/25/2025 18:12 H AND H HEMOGLOBIN 15.3 g/dl 13.0 - 17.5 Final EDT REPEATED 04/25/2025 18:12 HEMATOCRIT 42.7 % 40.0 - 52.0 Final EDT 04/25/2025 18:12 MCV 94 fl 81 - 98 Final EDT 34 pg 04/25/2025 18:12 MCH 27 - 33 Final Above high normal EDT 3 of 8 Narrative Lab Test Result Reference Status Received Comments 04/25/2025 18:12 MCHC 36 X10 3 32 - 36 Final EDT 04/25/2025 18:12 RDW/CV 13.3 % 12.0 - 15.6 Final EDT 04/25/2025 18:12 PLATELET 297 x10/UL 150 - 450 Final EDT 04/25/2025 18:12 AUTOMATED MPV 7.3 fl 6.4 - 10.5 Final EDT DIFFERENTIAL 04/25/2025 18:12 NEUT % 67.1 % 46.0 - 76.0 Final EDT 04/25/2025 18:12 LYMPH % 24.2 % 20.0 - 45.0 Final EDT 04/25/2025 18:12 MONOS % 7.8 % 0.0 - 10.0 Final EDT 04/25/2025 18:12 EO % 0.7 % 0.0 - 7.0 Final EDT 04/25/2025 18:12 BASO % 0.3 % 0.0 - 2.0 Final EDT 04/25/2025 18:12 Lymph # 1.81 x10/UL 0.80 - 2.80 Final EDT 04/25/2025 18:12 Neut # 5.04 x10/UL 1.50 - 7.10 Final EDT 04/25/2025 18:12 [place] # 0.58 x10/UL 0.20 - 1.00 Final EDT 04/25/2025 18:12 EO # 0.05 x10/UL 0.00 - 0.50 Final EDT 4 of 8 Narrative Lab Test Result Reference Status Received Comments 04/25/2025 18:12 Baso # 0.02 x10/UL 0.00 - 0.10 Final EDT 04/25/2025 18:12 MANUAL DIFF N/A New Order EDT 04/25/2025 18:12 MORPHOLOGY N/A New Order EDT CMP with eGFR Final JUAN CARLOS: 04/25/2025 17:40:00 EDT MsgRcvd: 04/25/2025 18:26 EDT Lab Test Result Reference Status Received Comments COMPREHENSIVE 04/25/2025 CMP with eGFR Final METABOLIC 18:26 EDT PANEL 04/25/2025 SODIUM 141 mmol/l 136 - 145 Final 18:26 EDT 3.4 mmol/L 04/25/2025 POTASSIUM 3.5 - 5.1 Final Below low normal 18:2 (more content not included)... Normal [facility] ED SUPER BILLon 04-25-2025 ED SUPER BILL Superbill [address] [address] [id number] 04/25/2025 Patient: MIAN FOSS Sex: Male : 1955 Age: 70y Item Facility Professional Category Description Code Code Quantity Fee Total Drugs Normal Saline 745834 1 $0.00 $0.00 1000cc (301075) Nurse/E/M EMERGENCY 715987 1 $0.00 $0.00 DEPARTMENT VISIT HIGH/URGENT SEVERITY (05546-23) Nurse/IV/IM/Infusions Hydration initial 042425 1 $0.00 $0.00 (76614) Grand Total $0.00 Providers Brandon Paz D.O. Chief Complaint ABDOMINAL PAIN. 1 of 2 [facility] Principal Diagnosis Acute nontraumatic pain in the lower back, right lower extremity (hip) and left lower extremity (hip). Chronic nontraumatic lumbar back pain. Constipation ICD-10 Codes M54.50: Low back pain, unspecified M25.551: Pain in right hip M25.552: Pain in left hip K59.00: Constipation, unspecified M54.50: Low back pain, unspecified G89.29: Other chronic pain M54.9: Dorsalgia, unspecified 2 of 2 [facility] ED VISIT SUMMARYon ED VISIT SUMMARY Visit Overview Visit Overview [address] [address] [id number] 04/25/2025 Patient: MIAN FOSS Sex: Male : 1955 Age: 70y 04/25/2025 11:39 PM EDT ED Arrival:16:35 04/25/2025 EDT Status: Recent Travel:no Language:eng Adv Directive: Isolation Status: Ethnicity:N Fall Risk:risk Infectious Disease Exposure:no Measurements:5'9 / 175.3 Self-Harm Status:risk Sepsis Screen:negative cm 180.0 lb / 81.6 kg Chief Complaint:BACK PAIN, (couple weeks ), (Nathaly Marcio ), (difficulty with bowel movement), and (increased in pain this morning ) ALLERGIES No Known Drug Allergies HOME MEDICATIONS Eliquis DVT-PE Treatment 30-Day Starter 5 mg (74 tablets) in dose pack: 1 tablet twice a day. hydrocodone 10 mg-acetaminophen 325 mg tablet: TAKE 1 TABLET BY MOUTH EVERY 8 HOURS NEEDED FOR SEVERE PAIN lisinopril 10 mg tablet: 10 mg once a day. 1 of 3 Visit Overview losartan 100 mg-hydrochlorothiazid e 25 mg tablet: 1 tablet once a day. tramadol 50 mg tablet: Stopped 04/25/2025. PAST MEDICAL HISTORY / PROBLEMS DVT - Deep Venous Thrombosis Hypertension Other immunizations: up-to-date Pulmonary Embolism See nurses notes PAST SURGICAL HISTORY Hernia Repair SOCIAL HISTORY Smoking status: No Alcohol use: No Drug use: No ED COURSE MEDICATIONS GIVEN IN EMERGENCY DEPARTMENT 17:45 04/25/25 IV NS 0.9 % 1000 mL 999 mL/hr IV SITE INFORMATION INTAKE OUTPUT REASSESMENT (most recent) 2 of 3 Visit Overview 17:50 04/25/25. Ambulatory to room. ( Pt is scheduled for hip surgery, but pt was Dx with blood clots and has to be on Eliquis for a specific time frame before surgery). GENERAL / NEURO / PSYCH: Alert. Oriented X 4. Appears in pain. RESPIRATORY: Respirations not labored. Chest nontender. Breath sounds within normal limits. CVS: Normal heart rate and rhythm. Capillary refill less than 2 seconds. GI / : Abdomen soft and nontender. Bowel sounds within normal limits. EXTREMITIES: Limited ROM present in the right hip and left hip. Sensation intact in extremities. ROM of extremities within normal limits. BACK: Soft tissue tenderness in the right mid and lower and left mid and lower lumbar paraspinous region. Limited ROM of the back. Soft tissue tenderness. VITAL SIGNS First Vitals Last Vitals Temp 16:39 04/25/25 97.8 F Temp 18:43 04/25/25 BP 16:39 04/25/25 143/69 BP 18:43 04/25/25 166/78 HR 16:39 04/25/25 93 HR 18:43 04/25/25 83 RR 16:39 04/25/25 17 RR 18:43 04/25/25 16 O2 Sat 16:39 04/25/25 95% O2 Sat 18:43 04/25/25 95% Pain 16:39 04/25/25 4 Pain 18:43 04/25/25 2 ETCO2 16:39 04/25/25 ETCO2 18:43 04/25/25 GCS 16:39 04/25/25 GCS 18:43 04/25/25 RTS 16:39 04/25/25 RTS 18:43 04/25/25 PROCEDURES NURSING INTERVENTIONS LABS / STUDIES LABS / STUDIES ORDERED CBC w Diff CMP CLINICAL IMPRESSION ACUTE NONTRAUMATIC PAIN IN THE LOWER BACK, RIGHT LOWER EXTREMITY (HIP) AND LEFT LOWER EXTREMITY (HIP) CHRONIC NONTRAUMATIC LUMBAR BACK PAIN CONSTIPATION 3 of 3 Normal [facility] ED VITALS FLOW SHEETon 04-25 ED VITALS FLOW SHEET Vitals Vital Sign Flow Sheet [address] [place] [address] [id number] 04/25/2025 Patient: MIAN FOSS Sex: Male : 1955 Age: 70y Measurements Wt: 81.6 kg, Ht/Uriel: 69.0 in, BMI: 26.58 Measured Time BP MAP HR RR O2Sat ETCO2 Temp Pain GCS RTS 18:43 04/25/2025 166/78 107 83 16 95% 2 16:39 04/25/2025 143/69 94 93 17 95% 97.8 F 4 1 of 1 Normal [facility] .Auto Diffon 04-16-2025 Basophil, Absolute 0.0 10 3/mcL Normal 0.0-0.3 [facility] Comment on above: Performed By: #### C BC, ADIFF, BMP, MG, GFR, ANEU #### [facility] [address] [place] [address] Basophils/100 WBC (Bld) 0.4 % Normal 0.0-2.5 [facility] Comment on above: Performed By: #### C BC, ADIFF, BMP, MG, GFR, ANEU #### [facility] [address] [place] [address] Eosinophil, Absolute 0.0 10 3/mcL Normal 0.0-0.7 [facility] Comment on above: Performed By: #### C BC, ADIFF, BMP, MG, GFR, ANEU #### [address] [address] Eosinophils/100 WBC (Bld) 0.6 % Normal 0.0-6.0 [facility] Comment on above: Performed By: #### C BC, ADIFF, BMP, MG, GFR, ANEU #### [address] [address] Lymphocyte, Absolute 1.8 10 3/mcL Normal 0.9-4.3 [facility] Comment on above: Performed By: #### C BC, ADIFF, BMP, MG, GFR, ANEU #### [address] [address] Lymphocytes/100 WBC (Bld) 24.8 % Normal 20.0-40.0 [facility] Comment on above: Performed By: #### C BC, ADIFF, BMP, MG, GFR, ANEU #### [address] [address] Monocyte, Absolute 0.8 10 3/mcL Normal 0.1-1.4 [facility] Comment on above: Performed By: #### C BC, ADIFF, BMP, MG, GFR, ANEU #### [address] [address] Monocytes/100 WBC (Bld) 10.3 % Normal 2.0-13.0 [facility] Comment on above: Performed By: #### C BC, ADIFF, BMP, MG, GFR, ANEU #### [address] [address] Neutrophils/100 WBC (Bld) 63.9 % Normal 50.0-75.0 [facility] Comment on above: Performed By: #### C BC, ADIFF, BMP, MG, GFR, ANEU #### [address] [address] .GFRon 04-16-2025 Estimated Glomerular Filtration Rate 60 ml/min/1.73sqm Normal [facility] Comment on above: Result Comment: Stages of Chronic Kidney Disease (CKD) Stage Description eGFR(ml/min/1.73 sq.m.) CKD 1 Normal kidney function or >=90 normal kindney function with possible kidney damage (ex. Proteinuria) CKD 2 Kidney damage with mild loss 60-89 of kidney function CKD 3a Mild to moderate loss of kidney 45-59 function CKD 3b Moderate to severe loss of 30-44 of kindey function CKD 4 Severe loss of kidney function 15-29 CKD 5 Kidney failure <15 Note: (go live 2024) the eGFR calculation was updated to the 2020 CKD-EPI creatinine equation without a race factor to calculate the eGFR results. Performed By: #### C BC, ADIFF, BMP, MG, GFR, ANEU #### [address] [address] .NEUABSon 04-16-2025 Neutrophil, Absolute 4.8 10 3/mcL Normal 2.3-8.1 [facility] Comment on above: Performed By: #### C BC, ADIFF, BMP, MG, GFR, ANEU #### [address] [address] BMPon 04-16-2025 BUN/Creatinine Ratio 16.3 ratio Normal 10.0-22.0 [facility] Comment on above: Performed By: #### C BC, ADIFF, BMP, MG, GFR, ANEU #### [address] [address] Calcium [Mass/Vol] 8.8 mg/dL Normal 8.7-10.4 [facility] Comment on above: Performed By: #### C BC, ADIFF, BMP, MG, GFR, ANEU #### [address] [address] Chloride [Moles/Vol] 101 mmol/L Normal 98-110 [facility] Comment on above: Performed By: #### C BC, ADIFF, BMP, MG, GFR, ANEU #### [address] [address] CO2 [Moles/Vol] 31 mmol/L Normal 22-32 [facility] Comment on above: Performed By: #### C BC, ADIFF, BMP, MG, GFR, ANEU #### [place] [address] Creatinine [Mass/Vol] 1.29 mg/dL Normal 0.60-1.40 [facility] Comment on above: Result Comment: Test ing performed on ROVOP analyzer using enzymatic creatinine methodology. Performed By: #### C BC, ADIFF, BMP, MG, GFR, ANEU #### [place] [address] Electrolyte Balance 9.0 mEq/L Normal 4.0-15.0 [facility] Comment on above: Performed By: #### C BC, ADIFF, BMP, MG, GFR, ANEU #### [place] [id number] Glucose [Mass/Vol] 98 mg/dL Normal 82-115 [facility] Comment on above: Performed By: #### C BC, ADIFF, BMP, MG, GFR, ANEU #### [place] [address] Potassium [Moles/Vol] 3.3 mmol/L Low 3.5-5.0 [facility] Comment on above: Performed By: #### C BC, ADIFF, BMP, MG, GFR, ANEU #### [place] [address] Sodium [Moles/Vol] 141 mmol/L Normal 136-145 [facility] Comment on above: Performed By: #### C BC, ADIFF, BMP, MG, GFR, ANEU #### [place] [address] Urea nitrogen [Mass/Vol] 21.0 mg/dL Normal 8.0-22.0 [facility] Comment on above: Performed By: #### C BC, ADIFF, BMP, MG, GFR, ANEU #### [place] [id number] CBCon 04-16-2025 Erythrocyte distribution width (RBC) [Ratio] 13.9 % Normal 11.5-15.5 [facility] Comment on above: Performed By: #### C BC, ADIFF, BMP, MG, GFR, ANEU #### [place] [id number] Hematocrit (Bld) [Volume fraction] 41.2 % Normal 40.0-52.0 [facility] Comment on above: Performed By: #### C BC, ADIFF, BMP, MG, GFR, ANEU #### [place] [address] Hgb 14.6 G/dL Normal 13.0-17.5 [facility] Comment on above: Performed By: #### C BC, ADIFF, BMP, MG, GFR, ANEU #### [place] [address] MCH (RBC) [Entitic mass] 32.7 pg Normal 27.0-33.0 [facility] Comment on above: Performed By: #### C BC, ADIFF, BMP, MG, GFR, ANEU #### [place] [address] MCHC 35.4 G/dL Normal 32.0-36.0 [facility] Comment on above: Performed By: #### C BC, ADIFF, BMP, MG, GFR, ANEU #### [place] [address] MCV (RBC) [Entitic vol] 92.2 fL Normal 81.0-100.0 [facility] Comment on above: Performed By: #### C BC, ADIFF, BMP, MG, GFR, ANEU #### [place] [address] Platelet 283 10 3/mcL Normal 150-450 [facility] Comment on above: Performed By: #### C BC, ADIFF, BMP, MG, GFR, ANEU #### [place] [address] Platelet mean volume (Bld) [Entitic vol] 7.4 fL Normal 6.4-10.5 [facility] Comment on above: Performed By: #### C BC, ADIFF, BMP, MG, GFR, ANEU #### [place] [address] RBC 4.47 10 6/mcL Low 4.50-6.00 [facility] Comment on above: Performed By: #### C BC, ADIFF, BMP, MG, GFR, ANEU #### [place] [id number] [place] [address] WBC 7.4 10 3/mcL Normal 4.5-10.8 [facility] Comment on above: Performed By: #### C BC, ADIFF, BMP, MG, GFR, ANEU #### [place] [id number] [place] [address] ED MED ADMINISTRATION DETAIL on 04-16-2025 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 Allergies verified and confirmed 5 rights. IV 20:47 04/14/2025 (NOW x1) patency established. IV site checked: no pain, redness, or swelling. Jeanette Bryan R.N. IV flushed thoroughly pre-medication administration. Information Stopped reviewed with patient including reason for taking this medication, 21:50 04/14/2025 signs of allergic reaction and precautions. Verbalizes Jeanette Bryan R.N. understanding. - 20:47 Jeanette Bryan R.N. Scanned 21:50 04/14 Medication Discontinued: bag #1 completed. Total amount infused: 1000 mL. IV patency established. IV site checked: no pain, redness, or swelling. IV flushed thoroughly post-medication administration. - 22:30 Jeanette Bryan R.N. 1 of 1 Normal [facility] ED NURSES CLINICAL NOTEon ED NURSES CLINICAL NOTE Nurse Narrative Nurse Clinical Narrative [address] [address] [id number] 04/14/2025 20:35:00 Patient: MIAN FOSS [facility]#: [id number] Sex: Male : 1955 Age: 70y Disposition: Transfer to [facility] Disposition Decision Time: 23:31 04/14/2025 Departure Time: 05:15 04/15/2025 TRIAGE Arrived by private vehicle. Historian: (patient). Accompanied by family. Primary physician (Nathaly Suggs). Triage time: 20:34 04/14/2025. Acuity: LEVEL 3. Chief Complaint: ABDOMINAL PAIN and NAUSEA. This started today. ( ongoing chest pain, abdominal pain that started today at 1930). The patient has had nausea and abdominal pain. No vomiting, diarrhea, constipation or fever. -- 20:45 04/14/25 GABIT Jeanette Bryan R.N. 20:44 04/14/25. BP: 159/86 MAP: 110. HR: 81. RR: 16. O2 saturation: 95% on room air. Temperature: 98 F. Pain level now 4/10. -- 20:44 04/14/25 GABIT Jeanette Bryan R.N. 20:51 04/14/25. SEPSIS SCREEN: NEGATIVE. SIRS criteria negative. No possible sources of infection. -- 20:51 04/14/25 GABIT Jeanette Bryan R.N. Measurements: 20:39 04/14/25 Wt: 81.6 kg, Ht/Uriel: 69.0 in, BMI: 26.58 -- 20:39 04/14/25 GABIT Jeanette Bryan R.N. Medications: tramadol 50 mg tablet: TAKE 1 TABLET BY MOUTH EVERY 6 HOURS NEEDED -- 20:41 04/14/25 BEATRIZ Bryan R.N. 1 of 5 Nurse Belkis Monzon DVT-PE Treatment 30-Day Starter 5 mg (74 tablets) in dose pack: TAKE DIRECTED ON PACKAGE -- 20:41 04/14/25 BEATRIZ Bryan R.N. losartan 100 mg-hydrochlorothiazid e 25 mg tablet: TAKE 1 TABLET BY MOUTH ONCE DAILY -- 20:41 04/14/25 BEATRIZ Bryan R.N. Allergies: no known drug allergies -- 20:37 04/14/25 BEATRIZ Bryan R.N. Problems: Hypertension -- 20:37 04/14/25 BEATRIZ Bryan R.N. Pulmonary Embolism -- 20:42 04/14/25 BEATRIZ Bryan R.N. DVT - Deep Venous Thrombosis -- 20:42 04/14/25 BEATRIZ Bryan R.N. Surgeries: Hernia Repair -- 20:38 04/14/25 BEATRIZ Bryan R.N. History 20:34 04/14/25. SOCIAL HX: Never smoker. No alcohol use or drug use. The patient has not traveled outside the [place] Infectious disease exposure: No infectious disease exposure. ABUSE ASSESSMENT: The patient answered yes to the question(s) Do you feel safe in your home? and no to the question(s) Are you afraid to go home?. SELF HARM ASSESSMENT: Self harm assessment was performed. The patient answered no to the question(s) Have you recently felt down, depressed, or hopeless? and Do you have thoughts of harming or killing yourself?. SKIN INTEGRITY ASSESSMENT: Skin integrity risk assessment completed. No skin integrity risk identified. -- 20:45 04/14/25 BEATRIZ Bryan R.N. 20:46 04/14/25. FALL RISK ASSESSMENT: Fall risk assessment completed. Risk factors identified include nausea and patient age greater than 65 years and impairment of mobility. Fall interventions initiated. Patient placed on stretcher. 2 of 5 Nurse Narrative Side rails up x2. Bed in low position. Brakes on. Patient identified as a fall risk by ID band. Call light in reach of patient and family. -- 20:46 04/14/25 BEATRIZ Bryan R.N. Interventions 20:34 04/14/25. Advanced care plan. Patient does not have advanced directive. -- 20:45 04/14/25 BEATRIZ Bryan R.N. PHYSICAL ASSESSMENT 21:02 04/14/25. Ambulatory to room. Patient gowned. ( Reports epigastric pain that started today around 1930. Denies radiating pain.). GENERAL / NEURO / PSYCH: Alert. Oriented X 4. Appears in no acute distress. RESPIRATORY: Respirations not labored. Breath sounds within normal limits. CVS: Normal sinus rhythm noted. Capillary refill less than 2 seconds. GI / : The patient has had nausea. Abdominal distention. Diminished bowel sounds in the RUQ, LUQ and LLQ. No mass present in the abdominal region. No emesis noted. Last BM was today. SKIN: Skin is warm and dry. -- 21:02 04/14/25 EDT Jeanette Bryan R.N. NURSING PROGRESS NOTES 20:37 04/14/25. Site #1 started in the right antecubital space with an 18g angiocath with aseptic technique and good blood return; 1 attempt. Blood drawn: rainbow set tube(s). Saline lock flushed with 5 mL saline. -- 20:47 04/14/25 EDT Jeanette Bryan R.N. 20:40 04/14/25. 12-LEAD EKG: EKG time: (20:37 04/14/2025). 12-Lead EKG was performed by a bridal service sales and management and shown to the ED physician (20:40 04/14/2025). -- 21:04 04/14/25 EDT Jeanette Bryan R.N. 20:47 04/14/25. IV NS 0.9 % 1000 mL started in bag#1 1000 mL at 500 mL/hr via Site# 1. Allergies verified and confirmed 5 rights. IV patency established. IV site checked: no pain, redness, or swelling. IV flushed thoroughly pre-medication administration. Information reviewed with patient including reason for taking this medication, signs of allergic reaction and precautions. Ve (more content not included)... Normal [facility] ED ORDER SHEET (CPOE ONLY)on 04-16-2025 ED ORDER SHEET (CPOE ONLY) Order Sheet Order Sheet [address] [place] [address] [id number] 04/14/2025 Patient: MIAN FOSS Sex: Male : 1955 Age: 70y MEASUREMENTS: Wt: 81.6 kg, Ht/Uriel: 69.0 in, BMI: 26.58 ALLERGIES: No known drug allergies MEDICATION/IV/DRIP/FL UID ORDERS Order Description Priority Entered Acknowledged Completed IV NS 0.9 %1000 mL at 500 20:39 04/14/2025 20:47 mL/hr (NOW x1) Brandon Paz, 04/14/2025 Clinton Bryan R.N. LAB ORDERS Order Description Priority Entered Acknowledged Collected Completed CBC w Diff Stat Stat 20:39 04/14/2025 20:48 04/14/2025 20:49 04/14/2025 Jeanette Figueroa Crystal Brenner, D.O. R.N. RJohnNJohn CMP Stat Stat 20:39 04/14/2025 20:48 04/14/2025 20:49 04/14/2025 Jeanette Figueroa Crystal Brenner, D.O. R.N. RCrystal Lipase Stat Stat 20:39 04/14/2025 20:48 04/14/2025 20:50 04/14/2025 Jeanette Figueroa Crystal Brenner, 1 of 3 Order Sheet Clinton Nicolas RJohnNJohn Troponin-I Stat Stat 20:39 04/14/2025 Cancelled: Other Brandon Paz, 20:49 EDT Brandon Paz D.O. D.O. EKG - ED Stat Stat 20:39 04/14/2025 20:48 04/14/2025 20:49 04/14/2025 Jeanette Figueroa Crystal Brenner, D.O. R.NJohn RJohnNJohn Urinalysis Stat Stat 20:39 04/14/2025 20:48 04/14/2025 01:42 04/15/2025 Jaenette Figueroa Crystal Brenner, D.O. R.NJohn R.NJohn Troponin-I Protocol Stat 20:49 04/14/2025 20:49 04/14/2025 21:11 04/14/2025 (STAT 1hr) (Sched: q1h Jeanette Figueroa Crystal Brenner, X2); Stat 1 of 2 D.O. R.N. R.N. Troponin-I Protocol Stat 20:49 04/14/2025 21:49 04/14/2025 21:49 04/14/2025 (STAT 1hr) (Sched: q1h Jeanette Figueroa, Jeanette Bryan, X2); Stat 2 of 2 D.Nicolle Parnell.N. R.NJohn DIAGNOSTIC STUDY ORDERS Order Description Priority Entered Acknowledged Completed CT ABD/PEL w Cont Stat Stat 20:39 04/14/2025 20:48 21:49 Brandon Paz, 04/14/2025 04/14/2025 Jeanette Corcoran R.N. R.N. Reason for Study: Abdominal Pain STAFF ORDERS 2 of 3 Order Sheet Order Description Priority Entered Acknowledged Collected Completed IV Saline Lock 20:39 04/14/2025 20:48 04/14/2025 20:50 04/14/2025 Jeanette Figueroa Crystal Brenner, D.O. R.N. RCrystal [Electronically signed by Brandon Paz D.O. (04/16/2025 11:05 EDT)] 3 of 3 Normal [facility] ED PHYSICIAN CLINICAL REPORT on 04-16-2025 ED PHYSICIAN CLINICAL REPORT Narrative Physician Clinical Narrative [address] [address] [id number] 04/14/2025 20:35:00 Patient: MIAN FOSS Sex: Male : 1955 Age: 70y Disposition: Transfer to [facility] Disposition Decision Time: 23:31 04/14/2025 Departure Time: 05:15 04/15/2025 Measurements Wt: 81.6 kg, Ht/Uriel: 69.0 in, BMI: 26.58 Initial Vital Sign Measured Time BP MAP HR RR O2Sat ETCO2 Temp Pain GCS RTS 20:42 04/14/2025 83 95% Time Seen: 20:34 04/14/2025. Arrived- By private vehicle. Historian- patient. HISTORY OF PRESENT ILLNESS Chief Complaint: ABDOMINAL PAIN. This started just prior to arrival patient came in complaining of abdominal pain said he was had this discomfort in his abdomen around 7:00 a.m. 730. Sats 4/10 constant pressure he felt lightheaded felt nauseated denies shortness of breath 90 chest pain but came in and gets tightness but he always has this he states. He is here with his daughter. It is very caring and loving toward him. Does have history of hypertension he has also had a pulmonary embolism which he is on blood thinners for surgeries had a herniorrhaphy social history he does not smoke or drink he lives alone and is still present. It is described as pain and pressure and it is described as generalized in location. REVIEW OF SYSTEMS GI: No constipation. CONSTITUTIONAL: No fever. 1 of 23 Narrative PAST HISTORY See nurses notes. DVT - Deep Venous Thrombosis Hypertension Pulmonary Embolism Surgeries: Hernia Repair Medications: Eliquis DVT-PE Treatment 30-Day Starter 5 mg (74 tablets) in dose pack: TAKE DIRECTED ON PACKAGE losartan 100 mg-hydrochlorothiazid e 25 mg tablet: TAKE 1 TABLET BY MOUTH ONCE DAILY tramadol 50 mg tablet: TAKE 1 TABLET BY MOUTH EVERY 6 HOURS NEEDED Allergies: no known drug allergies SOCIAL HISTORY Never smoker. No alcohol use. ADDITIONAL NOTES The nursing notes have been reviewed. PHYSICAL EXAM Appearance: Alert. Oriented X3. No acute distress. Eyes: Pupils equal, round and reactive to light. Eyes normal inspection. ENT: Ears normal. Nose normal. Neck: Normal inspection. Neck supple. CVS: Normal heart rate and rhythm. Heart sounds normal. Respiratory: No respiratory distress. Breath sounds normal. Abdomen: Soft and nontender. Back: Normal inspection. Skin: Skin warm and dry. Normal skin color. Normal skin turgor. 2 of 23 Narrative Extremities: Extremities exhibit normal ROM. No lower extremity edema. Neuro: Oriented X 3. No motor deficit. LABS, X-RAYS, AND EKG 12-LEAD EKG: EKG time: 20:37 04/14/2025. No acute process. Normal sinus rhythm. Rate: 88. Q waves in lead III and aVF. Normal axis. The study has been interpreted contemporaneously by me. Interpretation time: 20:39 04/14/2025. Laboratory Tests: CBC + DIFF Final JUAN CARLOS: 04/14/2025 20:39:00 EDT MsgRcvd: 04/14/2025 20:48 EDT Lab Test Result Reference Status Received Comments 04/14/2025 20:48 CBC-COMPLETE CBC + DIFF Final EDT BLOOD COUNT 04/14/2025 20:48 WBC 8.6 x 10/UL 4.5 - 10.8 Final EDT 04/14/2025 20:48 RBC 4.85 x 10/UL 4.50 - 6.00 Final EDT 04/14/2025 20:48 HEMOGLOBIN 16.0 g/dl 13.0 - 17.5 Final EDT 04/14/2025 20:48 HEMATOCRIT 45.0 % 40.0 - 52.0 Final EDT 04/14/2025 20:48 MCV 93 fl 81 - 98 Final EDT 04/14/2025 20:48 MCH 33 pg 27 - 33 Final EDT 04/14/2025 20:48 MCHC 36 X10 3 32 - 36 Final EDT 3 of Narrative Lab Test Result Reference Status Received Comments 04/14/2025 20:48 RDW/CV 13.8 % 12.0 - 15.6 Final EDT 04/14/2025 20:48 PLATELET 324 x10/UL 150 - 450 Final EDT 04/14/2025 20:48 AUTOMATED MPV 6.9 fl 6.4 - 10.5 Final EDT DIFFERENTIAL 04/14/2025 20:48 NEUT % 65.4 % 46.0 - 76.0 Final EDT 04/14/2025 20:48 LYMPH % 25.9 % 20.0 - 45.0 Final EDT 04/14/2025 20:48 MONOS % 7.9 % 0.0 - 10.0 Final EDT 04/14/2025 20:48 EO % 0.6 % 0.0 - 7.0 Final EDT 04/14/2025 20:48 BASO % 0.2 % 0.0 - 2.0 Final EDT 04/14/2025 20:48 Lymph # 2.21 x10/UL 0.80 - 2.80 Final EDT 04/14/2025 20:48 Neut # 5.59 x10/UL 1.50 - 7.10 Final EDT 04/14/2025 20:48 [place] # 0.68 x10/UL 0.20 - 1.00 Final EDT 04/14/2025 20:48 EO # 0.05 x10/UL 0.00 - 0.50 Final EDT 04/14/2025 20:48 Baso # 0.01 x10/UL 0.00 - 0.10 Final EDT 4 of 23 Narrative Lab Test Result Reference Status Received Comments 04/14/2025 20:48 MANUAL DIFF N/A New Order EDT 04/14/2025 20:48 MORPHOLOGY N/A New Order EDT CMP with eGFR Final JUAN CARLOS: 04/14/2025 20:39:00 EDT MsgRcvd: 04/14/2025 21:10 EDT Lab Test Result Reference Status Received Comments COMPREHENSIVE 04/14/2025 CMP with eGFR Final METABOLIC 21:10 EDT PANEL 04/14/2025 SODIUM 142 mmol/l 136 - 145 Final (more content not included)... Normal [facility] ED SUPER BILLon 04-16-2025 ED SUPER BILL [id number] [place] [address] [phone] 04/14/2025 Patient: MIAN FOSS Sex: Male : 1955 Age: 70y Facility Professional Category Item Description Code Code Quantity Fee Total Drugs Normal Saline 538564 1 $0.00 $0.00 1000cc ([id number]) Nurse/E/M EMERGENCY 539308 1 $0.00 $0.00 DEPT VISIT HIGH SEVERITYFUNCJ (82867-17) Nurse/IV/IM/Infusions Hydration initial 227295 1 $0.00 $0.00 (38545) Grand $0.00 Total Providers Clinton Figueroa D.O. Chief Complaint ABDOMINAL PAIN. 1 of 2 [facility] Principal Diagnosis Chest pain characterized as discomfort. ICD-10 Codes R07.89: Other chest pain 2 of 2 Normal [facility] ED VISIT SUMMARYon ED VISIT SUMMARY Visit Overview Visit Overview [address] [address] [id number] 04/14/2025 Patient: MIAN FOSS Sex: Male : 1955 Age: 70y 04/16/2025 11:05 AM EDT ED Arrival:20:35 04/14/2025 EDT Status: Recent Travel:no Language:eng Adv Directive:No Isolation Status: Ethnicity:N Fall Risk:risk Infectious Disease Exposure:no Measurements:5'9 / 175.3 Self-Harm Status:risk Sepsis Screen:negative cm 180.0 lb / 81.6 kg Chief Complaint:ABDOMINAL PAIN, NAUSEA, (Nathaly Marcio ), and (ongoing chest pain, abdominal pain that started today at 1930) ALLERGIES No Known Drug Allergies HOME MEDICATIONS Eliquis DVT-PE Treatment 30-Day Starter 5 mg (74 tablets) in dose pack: TAKE DIRECTED ON PACKAGE losartan 100 mg-hydrochlorothiazid e 25 mg tablet: TAKE 1 TABLET BY MOUTH ONCE DAILY tramadol 50 mg tablet: TAKE 1 TABLET BY MOUTH EVERY 6 HOURS NEEDED 1 of 3 Visit Overview PAST MEDICAL HISTORY / PROBLEMS DVT - Deep Venous Thrombosis Hypertension Pulmonary Embolism See nurses notes PAST SURGICAL HISTORY Hernia Repair SOCIAL HISTORY Smoking status: No Alcohol use: No Drug use: No ED COURSE MEDICATIONS GIVEN IN EMERGENCY DEPARTMENT 20:47 04/14/25 IV NS 0.9 % 1000 mL 500 mL/hr IV SITE INFORMATION 20:37 04/14/25 Site #1 right AC, 18g. Saline lock. INTAKE OUTPUT REASSESMENT (most recent) 21:02 04/14/25. Ambulatory to room. Patient gowned. ( Reports epigastric pain that started today around 1930. Denies radiating pain.). GENERAL / NEURO / PSYCH: Alert. Oriented X 4. Appears in no acute distress. RESPIRATORY: Respirations not labored. Breath sounds within normal limits. CVS: Normal sinus rhythm noted. Capillary refill less than 2 seconds. GI / : The patient has had nausea. Abdominal distention. Diminished bowel sounds in the RUQ, LUQ and LLQ. No mass present in the abdominal region. No emesis noted. Last BM was today. SKIN: Skin is warm and dry. VITAL SIGNS First Vitals Last Vitals 2 of 3 Visit Overview First Vitals Last Vitals Temp 20:42 04/14/25 Temp 05:07 04/15/25 BP 20:42 04/14/25 BP 05:07 04/15/25 HR 20:42 04/14/25 83 HR 05:07 04/15/25 65 RR 20:42 04/14/25 RR 05:07 04/15/25 O2 Sat 20:42 04/14/25 95% O2 Sat 05:07 04/15/25 96% Pain 20:42 04/14/25 Pain 05:07 04/15/25 ETCO2 20:42 04/14/25 ETCO2 05:07 04/15/25 GCS 20:42 04/14/25 GCS 05:07 04/15/25 RTS 20:42 04/14/25 RTS 05:07 04/15/25 PROCEDURES NURSING INTERVENTIONS LABS / STUDIES LABS / STUDIES ORDERED CBC w Diff CMP CT ABD/PEL w Cont EKG - ED Lipase Troponin-I Protocol (STAT 1hr) Troponin-I Protocol (STAT 1hr) Urinalysis CLINICAL IMPRESSION CHEST PAIN CHARACTERIZED DISCOMFORT 3 of 3 Normal [facility] ED VITALS FLOW SHEETon 04-16 ED VITALS FLOW SHEET Vitals Vital Sign Flow Sheet [address] [place] [address] [phone] 04/14/2025 Patient: MIAN FOSS Sex: Male : 1955 Age: 70y Measurements Wt: 81.6 kg, Ht/Uriel: 69.0 in, BMI: 26.58 Measured Time BP MAP HR RR O2Sat ETCO2 Temp Pain GCS RTS 05:07 04/15/2025 65 96% 05:05 04/15/2025 16 98.0 F 0 05:02 04/15/2025 64 96% 04:57 04/15/2025 63 96% 04:52 04/15/2025 63 96% 04:47 04/15/2025 65 96% 04:46 04/15/2025 162/86 102 59 04:42 04/15/2025 62 96% 04:37 04/15/2025 61 96% 04:32 04/15/2025 65 95% 04:27 04/15/2025 64 97% 04:22 04/15/2025 67 96% 04:17 04/15/2025 62 95% 04:16 04/15/2025 131/57 81 61 04:12 04/15/2025 64 96% 1 of 6 Vitals Measured Time BP MAP HR RR O2Sat ETCO2 Temp Pain GCS RTS 04:07 04/15/2025 66 96% 04:02 04/15/2025 65 95% 03:57 04/15/2025 65 95% 03:52 04/15/2025 64 95% 03:47 04/15/2025 68 95% 03:45 04/15/2025 161/84 102 64 03:42 04/15/2025 65 96% 03:37 04/15/2025 64 95% 03:32 04/15/2025 69 96% 03:27 04/15/2025 65 96% 03:22 04/15/2025 63 94% 03:17 04/15/2025 68 94% 03:16 04/15/2025 143/63 93 69 03:12 04/15/2025 76 95% 03:07 04/15/2025 73 95% 03:02 04/15/2025 76 94% 02:57 04/15/2025 71 94% 02:52 04/15/2025 73 95% 02:47 04/15/2025 77 95% 02:45 04/15/2025 140/66 90 80 02:42 04/15/2025 73 94% 02:37 04/15/2025 80 94% 02:32 04/15/2025 76 94% 02:04/15/2025 80 94% 02:22 04/15/2025 82 94% 2 of 6 Vitals Measured Time BP MAP HR RR O2Sat ETCO2 Temp Pain GCS RTS 02:04/15/2025 81 95% 02:04/15/2025 151/77 101 82 02:12 04/15/2025 83 95% 02:07 04/15/2025 80 94% 02:02 04/15/2025 83 93% 01:57 04/15/2025 84 94% 01:52 04/15/2025 81 93% 01:47 04/15/2025 84 95% 01:37 04/15/2025 88 96% 01:32 04/15/2025 86 95% 01:04/15/2025 92 95% 01:04/15/2025 88 95% 01:04/15/2025 85 95% 01:16 04/15/2025 175/85 115 79 01:12 04/15/2025 82 94% 01:07 04/15/2025 77 95% 01:02 04/15/2025 85 94% 00:57 04/15/2025 82 96% 00:52 04/15/2025 79 94% 00:47 04/15/2025 73 95% 00:42 04/15/2025 79 93% 00:37 04/15/2025 79 95% 00:32 04/15/2025 84 93% 00:27 04/15/2025 80 94% 00:22 04/15/2025 81 95% 3 of 6 Vitals Measured Time BP MAP HR RR O2Sat ETCO2 Temp Pain GCS RTS 00:17 04/15/2025 81 95% 00:15 04/15/2025 146/91 109 81 00:13 04/15/2025 172/84 135 73 00:12 04/15/2025 75 95% 00:07 04/15/2025 84 97% 23:58 04/14/2025 203/102 135 90 23:43 04/14/2025 174/87 100 66 23:42 04/14/2025 65 95% 23:39 04/14/2025 180/90 106 68 23:37 04/14/2025 66 95% 23:32 04/14/2025 70 96% 23:28 04/14/2025 169/90 102 68 23:27 04/14/2025 71 96% 23:22 04/14/2025 67 95% 23:17 04/14/2025 74 95% 23:13 04/14/2025 159/88 111 64 23:12 04/14/2025 65 96% 23:07 04/14/2025 71 96% 23:02 04/14/2025 69 97% 22:58 04/14/2025 167/90 115 71 22:57 04/14/2025 69 96% 22:52 04/14/2025 61 96% 22:47 04/14/2025 62 96% 22:43 04/14/2025 165/82 109 63 22:42 04/14/2025 60 94% 4 of 6 Vitals Measured Time BP MAP HR RR O2Sat ETCO2 Temp Pain GCS RTS 22:37 04/14/2025 67 96% 22:32 04/14/2025 73 96% 22:28 04/14/2025 152/82 105 63 22:27 04/14/2025 62 96% 22:22 04/14/2025 65 96% 22:17 04/14/2025 65 96% 22:13 04/14/2025 153/88 113 71 22:12 04/14/2025 66 96% 22:07 04/14/2025 65 95% 22:02 04/14/2025 69 96% 21:58 04/14/2025 165/80 105 70 21:57 04/14/2025 69 96% 21:52 04/14/2025 77 96% 21:47 04/14/2025 68 97% 21:42 04/14/2025 169/84 112 71 21:42 04/14/2025 76 96% 21:37 04/14/2025 80 96% 21:32 04/14/2025 81 97% 21:13 04/14/2025 157/87 110 70 21:07 04/14/2025 77 96% 21:02 04/14/2025 67 96% 20:58 04/14/2025 162/100 116 78 20:57 04/14/2025 78 94% 20:52 04/14/2025 76 97% 20:47 04/14/2025 82 96% 5 of 6 Vitals Measured Time BP MAP HR RR O2Sat ETCO2 Temp Pain GCS RTS 20:44 04/14/2025 159/86 110 81 16 95% RA 98.0 F 4 20:43 04/14/2025 159/86 100 85 20:42 04/14/2025 83 95% 6 of 6 Normal [facility] LABORATORYOrdered By: SYSTEM SYSTEM on 04-16-2025 Basophils (Bld) [#/Vol] 0.0 103/mcL Normal 0.0 - 0.3 10^3/mcL AH Workflow SS Basophils/100 WBC (Bld) 0.4 % Normal 0.0 - 2.5 % AH Workflow SS Calcium [Mass/Vol] 8.8 mg/dL Normal 8.7 - 10. 4 mg/dL AH ADM SS Chloride [Moles/Vol] 101 mmol/L Normal 98 - 11 0 mEq/L AH ADM SS CO2 [Moles/Vol] 31 mmol/L Normal 22 - 32 mEq/L AH ADM SS Creatinine [Mass/Vol] 1.29 mg/dL Normal 0.60 - 1.40 mg/dL ADM SS Comment on above: Interpretive Data: T esting performed on ROVOP analyzer using enzymatic creatinine methodology. Electrolyte Balance 9.0 mEq/L Normal 4.0 - 15 .0 mEq/L ADM SS Eosinophils (Bld) [#/Vol] 0.0 103/mcL Normal 0.0 - 0.7 10^3/mcL Workflow SS Eosinophils/100 WBC (Bld) 0.6 % Normal 0.0 - 6.0 % Workflow SS Erythrocyte distribution width (RBC) [Ratio] 13.9 % Normal 11.5 - 15.5 % Workflow SS Estimated Glomerular Filtration Rate 60 ml/min/1.73sqm Invalid Interpretation Code ADM SS Comment on above: Interpretive Data: Stages of Chronic Kidney Disease (CKD) Stage Description eGFR(ml/min/1.73 sq.m.) CKD 1 Normal kidney function or >=90 normal kindney function with possible kidney damage (ex. Proteinuria) CKD 2 Kidney damage with mild loss 60-89 of kidney function CKD 3a Mild to moderate loss of kidney 45-59 function CKD 3b Moderate to severe loss of 30-44 of kindey function CKD 4 Severe loss of kidney function 15-29 CKD 5 Kidney failure <15 Note: (go live 2024) the eGFR calculation was updated to the 2020 CKD-EPI creatinine equation without a race factor to calculate the eGFR results. Glucose [Mass/Vol] 98 mg/dL Normal 82 - 115 mg/dL ADM SS Hematocrit (Bld) [Volume fraction] 41.2 % Normal 40.0 - 52.0 % Workflow SS Hemoglobin (Bld) [Mass/Vol] 14.6 G/dL Normal 13.0 - 17.5 G/dL Workflow SS Lymphocytes (Bld) [#/Vol] 1.8 103/mcL Normal 0.9 - 4.3 10^3/mcL Workflow SS Lymphocytes/100 WBC (Bld) 24.8 % Normal 20.0 - 40.0 % Workflow SS Magnesium [Mass/Vol] 1.9 mg/dL Normal 1.6 - 2 .4 mg/dL ADM SS MCH (RBC) [Entitic mass] 32.7 pg Normal 27.0 - 33.0 pg Workflow SS MCHC 35.4 G/dL Normal 32.0 - 36.0 G/dL Workflow SS MCV (RBC) [Entitic vol] 92.2 fL Normal 81.0 - 100.0 fL AH Workflow SS Monocytes (Bld) [#/Vol] 0.8 103/mcL Normal 0.1 - 1.4 10^3/mcL AH Workflow SS Monocytes/100 WBC (Bld) 10.3 % Normal 2.0 - 13.0 % AH Workflow SS Neutrophils (Bld) [#/Vol] 4.8 103/mcL Normal 2.3 - 8.1 10^3/mcL AH Workflow SS Neutrophils/100 WBC (Bld) 63.9 % Normal 50.0 - 75.0 % AH Workflow SS Platelet mean volume (Bld) [Entitic vol] 7.4 fL Normal 6.4 - 10.5 fL Workflow SS Platelets (Bld) [#/Vol] 283 103/mcL Normal 150 - 450 10^3/mcL AH Workflow SS Potassium [Moles/Vol] 3.3 mmol/L Low 3.5 - 5.0 mEq/L AH ADM SS RBC (Bld) [#/Vol] 4.47 106/mcL Low 4.50 - 6.0 0 10^6/mcL Workflow SS Sodium [Moles/Vol] 141 mmol/L Normal 136 - 145 mEq/L AH ADM SS Urea nitrogen [Mass/Vol] 21.0 mg/dL Normal 8.0 - 22.0 mg/dL ADM SS Urea nitrogen/Creatinine [Mass ratio] 16.3 ratio Normal 10.0 - 22.0 ratio AH ADM SS WBC (Bld) [#/Vol] 7.4 103/mcL Normal 4.5 - 10.8 10^3/mcL Workflow SS MGon 04-16-2025 Magnesium [Mass/Vol] 1.9 mg/dL Normal 1.6-2.4 [facility] Comment on above: Performed By: #### C BC, ADIFF, BMP, MG, GFR, ANEU #### [place] [address] .Auto Diffon 04-15-2025 Basophil, Absolute 0.0 10 3/mcL Normal 0.0-0.3 [facility] Comment on above: Performed By: #### L IPID, TSH, CMP, MG, PBNP, GFR, CBC, TROPHS, ADIFF, A1C, ANEU #### [address] [address] Basophils/100 WBC (Bld) 0.3 % Normal 0.0-2.5 [facility] Comment on above: Performed By: #### L IPID, TSH, CMP, MG, PBNP, GFR, CBC, TROPHS, ADIFF, A1C, ANEU #### [address] [address] Eosinophil, Absolute 0.0 10 3/mcL Normal 0.0-0.7 [facility] Comment on above: Performed By: #### L IPID, TSH, CMP, MG, PBNP, GFR, CBC, TROPHS, ADIFF, A1C, ANEU #### [address] [address] Eosinophils/100 WBC (Bld) 0.3 % Normal 0.0-6.0 [facility] Comment on above: Performed By: #### L IPID, TSH, CMP, MG, PBNP, GFR, CBC, TROPHS, ADIFF, A1C, ANEU #### [address] [address] Lymphocyte, Absolute 1.6 10 3/mcL Normal 0.9-4.3 [facility] Comment on above: Performed By: #### L IPID, TSH, CMP, MG, PBNP, GFR, CBC, TROPHS, ADIFF, A1C, ANEU #### [address] [address] Lymphocytes/100 WBC (Bld) 21.3 % Normal 20.0-40.0 [facility] Comment on above: Performed By: #### L IPID, TSH, CMP, MG, PBNP, GFR, CBC, TROPHS, ADIFF, A1C, ANEU #### [address] [address] Monocyte, Absolute 0.6 10 3/mcL Normal 0.1-1.4 [facility] Comment on above: Performed By: #### L IPID, TSH, CMP, MG, PBNP, GFR, CBC, TROPHS, ADIFF, A1C, ANEU #### [address] [address] Monocytes/100 WBC (Bld) 7.6 % Normal 2.0-13.0 [facility] Comment on above: Performed By: #### L IPID, TSH, CMP, MG, PBNP, GFR, CBC, TROPHS, ADIFF, A1C, ANEU #### [address] [address] Neutrophils/100 WBC (Bld) 70.5 % Normal 50.0-75.0 [facility] Comment on above: Performed By: #### L IPID, TSH, CMP, MG, PBNP, GFR, CBC, TROPHS, ADIFF, A1C, ANEU #### [address] [address] .GFRon 04-15-2025 Estimated Glomerular Filtration Rate 64 ml/min/1.73sqm Normal [facility] Comment on above: Result Comment: Stages of Chronic Kidney Disease (CKD) Stage Description eGFR(ml/min/1.73 sq.m.) CKD 1 Normal kidney function or >=90 normal kindney function with possible kidney damage (ex. Proteinuria) CKD 2 Kidney damage with mild loss 60-89 of kidney function CKD 3a Mild to moderate loss of kidney 45-59 function CKD 3b Moderate to severe loss of 30-44 of kindey function CKD 4 Severe loss of kidney function 15-29 CKD 5 Kidney failure <15 Note: (go live 2024) the eGFR calculation was updated to the 2020 CKD-EPI creatinine equation without a race factor to calculate the eGFR results. Performed By: #### C BC, ADIFF, BMP, MG, GFR, ANEU #### [address] [address] .NEUABSon 04-15-2025 Neutrophil, Absolute 5.3 10 3/mcL Normal 2.3-8.1 [facility] Comment on above: Performed By: #### L IPID, TSH, CMP, MG, PBNP, GFR, CBC, TROPHS, ADIFF, A1C, ANEU #### [place] [id number] A1Con 04-15-2025 Glucose [Mass/Vol] 108 mg/dL Normal [facility] Comment on above: Result Comment: Wen mated Average Glucose calculated by equation ((28.7xA1C)-46.7) Estimated average glucose (eAG) is a calculated value from Hemoglobin A1C and is financial service representative of the average blood glucose level in the last 2-3 month period. Normal range: less than 114 mg/dL Performed By: #### C BC, ADIFF, BMP, MG, GFR, ANEU #### [place] [address] HbA1c (Bld) [Mass fraction] 5.4 % Normal 4.0-6.0 [facility] Comment on above: Performed By: #### C BC, ADIFF, BMP, MG, GFR, ANEU #### [place] [address] CBCon 04-15-2025 Erythrocyte distribution width (RBC) [Ratio] 14.1 % Normal 11.5-15.5 [facility] Comment on above: Performed By: #### L IPID, TSH, CMP, MG, PBNP, GFR, CBC, TROPHS, ADIFF, A1C, ANEU #### [place] [address] Hematocrit (Bld) [Volume fraction] 43.4 % Normal 40.0-52.0 [facility] Comment on above: Performed By: #### L IPID, TSH, CMP, MG, PBNP, GFR, CBC, TROPHS, ADIFF, A1C, ANEU #### [place] [address] Hgb 15.4 G/dL Normal 13.0-17.5 [facility] Comment on above: Performed By: #### L IPID, TSH, CMP, MG, PBNP, GFR, CBC, TROPHS, ADIFF, A1C, ANEU #### [place] [address] MCH (RBC) [Entitic mass] 32.8 pg Normal 27.0-33.0 [facility] Comment on above: Performed By: #### L IPID, TSH, CMP, MG, PBNP, GFR, CBC, TROPHS, ADIFF, A1C, ANEU #### [place] [address] MCHC 35.5 G/dL Normal 32.0-36.0 [facility] Comment on above: Performed By: #### L IPID, TSH, CMP, MG, PBNP, GFR, CBC, TROPHS, ADIFF, A1C, ANEU #### [place] [address] MCV (RBC) [Entitic vol] 92.2 fL Normal 81.0-100.0 [facility] Comment on above: Performed By: #### L IPID, TSH, CMP, MG, PBNP, GFR, CBC, TROPHS, ADIFF, A1C, ANEU #### [place] [address] Platelet 311 10 3/mcL Normal 150-450 [facility] Comment on above: Performed By: #### L IPID, TSH, CMP, MG, PBNP, GFR, CBC, TROPHS, ADIFF, A1C, ANEU #### [place] [address] Platelet mean volume (Bld) [Entitic vol] 7.1 fL Normal 6.4-10.5 [facility] Comment on above: Performed By: #### L IPID, TSH, CMP, MG, PBNP, GFR, CBC, TROPHS, ADIFF, A1C, ANEU #### [place] [address] RBC 4.70 10 6/mcL Normal 4.50-6.00 [facility] Comment on above: Performed By: #### L IPID, TSH, CMP, MG, PBNP, GFR, CBC, TROPHS, ADIFF, A1C, ANEU #### [place] [address] WBC 7.5 10 3/mcL Normal 4.5-10.8 [facility] Comment on above: Performed By: #### L IPID, TSH, CMP, MG, PBNP, GFR, CBC, TROPHS, ADIFF, A1C, ANEU #### [place] [address] CMPon 04-15-2025 Albumin Level 3.8 G/dL Normal 3.2-4.8 [facility] Comment on above: Performed By: #### C BC, ADIFF, BMP, MG, GFR, ANEU #### [place] [address] Albumin/Globulin [Mass ratio] 1.3 {ratio} Normal 0.9-1.6 [facility] Comment on above: Performed By: #### C BC, ADIFF, BMP, MG, GFR, ANEU #### [place] [address] ALP [Catalytic activity/Vol] 78 U/L Normal 38-126 [facility] Comment on above: Performed By: #### C BC, ADIFF, BMP, MG, GFR, ANEU #### [place] [address] ALT [Catalytic activity/Vol] 20 U/L Normal 12-55 [facility] Comment on above: Performed By: #### C BC, ADIFF, BMP, MG, GFR, ANEU #### [place] [address] AST [Catalytic activity/Vol] 16 U/L Normal 8-34 [facility] Comment on above: Performed By: #### C BC, ADIFF, BMP, MG, GFR, ANEU #### [place] [address] Bili Total 2.20 mg/dL High 0.20-1.20 [facility] Comment on above: Result Comment: Use of this assay is not recommended for patients undergoing treatment with eltrombopag due to the potential for falsely elevated results. Performed By: #### C BC, ADIFF, BMP, MG, GFR, ANEU #### [place] [address] BUN/Creatinine Ratio 17.9 ratio Normal 10.0-22.0 [facility] Comment on above: Performed By: #### C BC, ADIFF, BMP, MG, GFR, ANEU #### [place] [address] Calcium [Mass/Vol] 9.3 mg/dL Normal 8.7-10.4 [facility] Comment on above: Performed By: #### C BC, ADIFF, BMP, MG, GFR, ANEU #### [address] [address] Chloride [Moles/Vol] 105 mmol/L Normal 98-110 [facility] Comment on above: Performed By: #### C BC, ADIFF, BMP, MG, GFR, ANEU #### [address] [address] CO2 [Moles/Vol] 29 mmol/L Normal 22-32 [facility] Comment on above: Performed By: #### C BC, ADIFF, BMP, MG, GFR, ANEU #### [address] [address] Creatinine [Mass/Vol] 1.23 mg/dL Normal 0.60-1.40 [facility] Comment on above: Result Comment: Test ing performed on ROVOP analyzer using enzymatic creatinine methodology. Performed By: #### C BC, ADIFF, BMP, MG, GFR, ANEU #### [address] [address] Electrolyte Balance 9.0 mEq/L Normal 4.0-15.0 [facility] Comment on above: Performed By: #### C BC, ADIFF, BMP, MG, GFR, ANEU #### [address] [address] Globulin 2.9 G/dL Normal 2.5-4.2 [facility] Comment on above: Performed By: #### C BC, ADIFF, BMP, MG, GFR, ANEU #### [address] [address] Glucose [Mass/Vol] 105 mg/dL Normal 82-115 [facility] Comment on above: Performed By: #### C BC, ADIFF, BMP, MG, GFR, ANEU #### [address] [address] Potassium [Moles/Vol] 3.9 mmol/L Normal 3.5-5.0 [facility] Comment on above: Performed By: #### C BC, ADIFF, BMP, MG, GFR, ANEU #### [place] [id number] [place] [id number] Sodium [Moles/Vol] 143 mmol/L Normal 136-145 [facility] Comment on above: Performed By: #### C BC, ADIFF, BMP, MG, GFR, ANEU #### [facility] [address] [place] [id number] Total Protein 6.7 G/dL Normal 5.7-8.2 [facility] Comment on above: Performed By: #### C BC, ADIFF, BMP, MG, GFR, ANEU #### [facility] [address] [place] [id number] Urea nitrogen [Mass/Vol] 22.0 mg/dL Normal 8.0-22.0 [facility] Comment on above: Performed By: #### C BC, ADIFF, BMP, MG, GFR, ANEU #### [address] [address] LABORATORYOrdered By: SYSTEM SYSTEM on 04-15-2025 Albumin BCP dye [Mass/Vol] 3.8 G/dL Normal 3.2 - 4.8 G/dL ADM SS Albumin/Globulin [Mass ratio] 1.3 {ratio} Normal 0.9 - 1.6 ratio ADM SS ALP [Catalytic activity/Vol] 78 U/L Normal 38 - 126 U/L ADM SS ALT No additional P-5'-P [Catalytic activity/Vol] 20 U/L Normal 12 - 55 U/L ADM SS AST [Catalytic activity/Vol] 16 U/L Normal 8 - 34 U/L ADM SS Basophils (Bld) [#/Vol] 0.0 103/mcL Normal 0.0 - 0.3 10^3/mcL Workflow SS Basophils/100 WBC (Bld) 0.3 % Normal 0.0 - 2.5 % Workflow SS Bilirubin [Mass/Vol] 2.20 mg/dL High 0.20 - 1.20 mg/dL ADM SS Comment on above: Interpretive Data: U se of this assay is not recommended for patients undergoing treatment with eltrombopag due to the potential for falsely elevated results. Calcium [Mass/Vol] 9.3 mg/dL Normal 8.7 - 10. 4 mg/dL ADM SS Chloride [Moles/Vol] 105 mmol/L Normal 98 - 11 0 mEq/L ADM SS CO2 [Moles/Vol] 29 mmol/L Normal 22 - 32 mEq/L ADM SS Creatinine [Mass/Vol] 1.23 mg/dL Normal 0.60 - 1.40 mg/dL ADM SS Comment on above: Interpretive Data: T esting performed on ROVOP analyzer using enzymatic creatinine methodology. Electrolyte Balance 9.0 mEq/L Normal 4.0 - 15 .0 mEq/L ADM SS Eosinophils (Bld) [#/Vol] 0.0 103/mcL Normal 0.0 - 0.7 10^3/mcL Workflow SS Eosinophils/100 WBC (Bld) 0.3 % Normal 0.0 - 6.0 % Workflow SS Erythrocyte distribution width (RBC) [Ratio] 14.1 % Normal 11.5 - 15.5 % Workflow SS Estimated Glomerular Filtration Rate 64 ml/min/1.73sqm Invalid Interpretation Code ADM SS Comment on above: Interpretive Data: Stages of Chronic Kidney Disease (CKD) Stage Description eGFR(ml/min/1.73 sq.m.) CKD 1 Normal kidney function or >=90 normal kindney function with possible kidney damage (ex. Proteinuria) CKD 2 Kidney damage with mild loss 60-89 of kidney function CKD 3a Mild to moderate loss of kidney 45-59 function CKD 3b Moderate to severe loss of 30-44 of kindey function CKD 4 Severe loss of kidney function 15-29 CKD 5 Kidney failure <15 Note: (go live 2024) the eGFR calculation was updated to the 2020 CKD-EPI creatinine equation without a race factor to calculate the eGFR results. Globulin 2.9 G/dL Normal 2.5 - 4.2 G/dL ADM SS Glucose [Mass/Vol] 108 mg/dL Invalid Interpretation Code AH Auto Chem SS Comment on above: Interpretive Data: E stimated average glucose (eAG) is a calculated value from Hemoglobin A1C and is financial service representative of the average blood glucose level in the last 2-3 month period. Normal range: less than 114 mg/dL Glucose [Mass/Vol] 105 mg/dL Normal 82 - 115 mg/dL ADM SS HbA1c (Bld) [Mass fraction] 5.4 % Normal 4.0 - 6.0 % Auto Chem SS Hematocrit (Bld) [Volume fraction] 43.4 % Normal 40.0 - 52.0 % AH Workflow SS Hemoglobin (Bld) [Mass/Vol] 15.4 G/dL Normal 13.0 - 17.5 G/dL AH Workflow SS Lymphocytes (Bld) [#/Vol] 1.6 103/mcL Normal 0.9 - 4.3 10^3/mcL AH Workflow SS Lymphocytes/100 WBC (Bld) 21.3 % Normal 20.0 - 40.0 % AH Workflow SS Magnesium [Mass/Vol] 2.0 mg/dL Normal 1.6 - 2 .4 mg/dL AH ADM SS MCH (RBC) [Entitic mass] 32.8 pg Normal 27.0 - 33.0 pg AH Workflow SS MCHC 35.5 G/dL Normal 32.0 - 36.0 G/dL AH Workflow SS MCV (RBC) [Entitic vol] 92.2 fL Normal 81.0 - 100.0 fL AH Workflow SS Monocytes (Bld) [#/Vol] 0.6 103/mcL Normal 0.1 - 1.4 10^3/mcL AH Workflow SS Monocytes/100 WBC (Bld) 7.6 % Normal 2.0 - 13.0 % AH Workflow SS Natriuretic peptide.B prohormone N-Terminal IA [Mass/Vol] 102 pg/mL Normal 0 - 900 pg/mL ADM SS Neutrophils (Bld) [#/Vol] 5.3 103/mcL Normal 2.3 - 8.1 10^3/mcL AH Workflow SS Neutrophils/100 WBC (Bld) 70.5 % Normal 50.0 - 75.0 % AH Workflow SS Platelet mean volume (Bld) [Entitic vol] 7.1 fL Normal 6.4 - 10.5 fL AH Workflow SS Platelets (Bld) [#/Vol] 311 103/mcL Normal 150 - 450 10^3/mcL AH Workflow SS Potassium [Moles/Vol] 3.9 mmol/L Normal 3.5 - 5.0 mEq/L AH ADM SS Protein [Mass/Vol] 6.7 G/dL Normal 5.7 - 8.2 G/dL ADM SS RBC (Bld) [#/Vol] 4.70 106/mcL Normal 4.50 - 6.0 0 10^6/mcL AH Workflow SS Sodium [Moles/Vol] 143 mmol/L Normal 136 - 145 mEq/L ADM SS Troponin I.cardiac DL <= 0.01 ng/mL [Mass/Vol] 10 ng/L Normal 0 - 54 ng/L ADM SS Comment on above: Interpretive Data: High Sensitive Troponin I Reference Ranges: Female: 0-34 ng/L Male: 0-54 ng/L Testing performed on Sendmebox analyzer using direct chemiluminescent technology. TSH Qn 0.882 mIU/mL Normal 0.550 - 4.780 mIU/mL ADM SS Urea nitrogen [Mass/Vol] 22.0 mg/dL Normal 8.0 - 22.0 mg/dL ADM SS Urea nitrogen/Creatinine [Mass ratio] 17.9 ratio Normal 10.0 - 22.0 ratio ADM SS WBC (Bld) [#/Vol] 7.5 103/mcL Normal 4.5 - 10.8 10^3/mcL Workflow SS LABORATORYOrdered By: Tania Babb on 04-15-2025 Cholesterol [Mass/Vol] 144 mg/dL Normal 50 - 199 mg/dL ADM SS Comment on above: Interpretive Data: C holesterol Reference Interval: Less than 200 Desirable 200-239 Borderline high risk 240 and above High risk Cholesterol in HDL [Mass/Vol] 28 mg/dL Low 40 - 59 mg/dL ADM SS Cholesterol in LDL [Mass/Vol] 92 mg/dL Normal 0 - 129 mg/dL ADM SS Triglyceride [Mass/Vol] 119 mg/dL Normal 3 - 149 mg/dL ADM SS LIPIDon 04-15-2025 Cholesterol [Mass/Vol] 144 mg/dL Normal 50-199 [facility] Comment on above: Result Comment: Chol esterol Reference Interval: Less than 200 Desirable 200-239 Borderline high risk 240 and above High risk Performed By: #### C BC, ADIFF, BMP, MG, GFR, ANEU #### [address] [address] Cholesterol in HDL [Mass/Vol] 28 mg/dL Low 40-59 [facility] Comment on above: Performed By: #### C BC, ADIFF, BMP, MG, GFR, ANEU #### [address] [address] Cholesterol in LDL [Mass/Vol] 92 mg/dL Normal 0-129 [facility] Comment on above: Performed By: #### C BC, ADIFF, BMP, MG, GFR, ANEU #### [facility] [address] [place] [address] Triglyceride [Mass/Vol] 119 mg/dL Normal 3-149 [facility] Comment on above: Performed By: #### C BC, ADIFF, BMP, MG, GFR, ANEU #### [facility] [address] [place] [address] MGon 04-15-2025 Magnesium [Mass/Vol] 2.0 mg/dL Normal 1.6-2.4 [facility] Comment on above: Performed By: #### C BC, ADIFF, BMP, MG, GFR, ANEU #### [address] [address] NM MYOCARDIAL SPECT STRESS/R ESTon 04-15-2025 NM MYOCARDIAL SPECT STRESS/REST ORIGINAL NM MYOCARDIAL SPECT STRESS/REST CLINICAL STATEMENT: chest pain TECHNIQUE: Lexiscan dose:0.4 mg Radiopharmaceutical (stress): Tc-99m Sestamibi Dose:27 mCi Radiopharmaceutical (rest): Tc-99m Sestamibi Dose:7 mCi SPECT acquisition and processing Reconstruction and reorientation of SPECT images into short axis, vertical and horizontal long axis planes Quantitative LVEF assessment COMPARISON:None REPORT:Image quality is good. No significant patient motion on the rotating planar images. Low-dose CT scan did not reveal any significant coronary artery calcifications. Perfusion SPECT images reveal homogeneous radiotracer uptake in all segments of the myocardium both at rest and also in stress. No evidence of reversible ischemia. No evidence of myocardial scar. Gated SPECT images reveal normal wall motion and wall thickening with ejection fraction 59%. End-diastolic volume 79 mL. No evidence of transient ischemic dilatation's. IMPRESSION: 1. No evidence of significant reversible ischemia 2. No evidence of myocardial scar 3. Normal wall motion and wall thickening with ejection fraction 59% 4. No previous studies available for comparison Interpreted By: Dae Shay Preliminary Report By: Dae Shay Electronically Signed By: Dae Shay Dictated Date: 04/15/2025 2:44:57 PM Prelim Date: 04/15/2025 2:44:57 PM Sign Date: 04/15/2025 2:48:03 PM Ordering Provider:Braeden Alideeb [facility] PBNPon 04-15-2025 Natriuretic peptide B (Bld) [Mass/Vol] 102 pg/mL Normal 0-900 [facility] Comment on above: Performed By: #### C BC, ADIFF, BMP, MG, GFR, ANEU #### [place] [id number] TROPHSon 04-15-2025 High Sensitivity Troponin I 10 ng/L Normal 0-54 [facility] Comment on above: Result Comment: High Sensitive Troponin I Reference Ranges: Female: 0-34 ng/L Male: 0-54 ng/L Testing performed on Sendmebox analyzer using direct chemiluminescent technology. Performed By: #### C BC, ADIFF, BMP, MG, GFR, ANEU #### [place] [address] TSHon 04-15-2025 TSH 0.882 mIU/mL Normal 0.550-4.780 [facility] Comment on above: Performed By: #### C BC, ADIFF, BMP, MG, GFR, ANEU #### [place] [address] URINALYSISon 04-15-2025 Bilirubin Ql (U) Negative Normal NORMAL: NEGATIVE [facility] Comment on above: Performed By: #### 2 53390 #### [facility],[address] [place] [address] Clarity (U) clear Normal NORMAL: CLEAR [facility] Comment on above: Performed By: #### 2 70073 #### [facility],[address] [place], [place] [id number] Color (U) yellow Normal NORMAL: YELLOW [facility] Comment on above: Performed By: #### 2 32198 #### [facility],[address] [place] [address] Glucose Ql (U) NORM Normal NORMAL: NORMAL [facility] Comment on above: Performed By: #### 2 70395 #### [facility],[address] [place] [address] Hemoglobin Ql (U) Negative Normal NORMAL: NEGATIVE [facility] Comment on above: Performed By: #### 2 21599 #### [facility],[address] [place] [address] Ketone Negative Normal NORMAL: NEGATIVE [facility] Comment on above: Performed By: #### 2 08497 #### [facility],[address] [place] [address] Leukocytes Negative Normal NORMAL: NEGATIVE [facility] Comment on above: Performed By: #### 2 22618 #### [facility],[address] [place] [address] Nitrite Ql (U) Negative Normal NORMAL: NEGATIVE [facility] Comment on above: Performed By: #### 2 40905 #### [facility],[address] [place] [address] pH (U) 5 [pH] Normal NORMAL: 5.0-8.0 [facility] Comment on above: Performed By: #### 2 16272 #### [facility],[address] [place] [address]771 Protein Ql (U) 15 Abnormal NORMAL: NEGATIVE [facility] Comment on above: Performed By: #### 2 72298 #### [facility],[address] [place] [address] 14451 Sp [place] 1.010 Normal NORMAL: 1.010-1.030 [facility] Comment on above: Performed By: #### 2 85940 #### [facility],[address] [place] [address] Specimen Type R Normal [facility] Comment on above: Performed By: #### 2 22415 #### [facility],[address] [place] [address]9080 Urinalysis dipstick W Reflex Microscopic panel (U) NOT INDICATED Normal [facility] Comment on above: Performed By: #### 2 92048 #### [facility],[address] [place] [address] Urobilinog NORM Normal NORMAL: NORMAL [facility] Comment on above: Performed By: #### 2 63901 #### [facility],[address] [place] [address] CBC + DIFFon 04-14-2025 Baso # 0.01 x10EE3/UL Normal 0.00 - 0.10 [facility] Comment on above: Performed By: #### 2 17600 #### [facility],[address] [place] [address] Basophils/100 WBC (Bld) 0.2 % Normal 0.0 - 2.0 [facility] Comment on above: Performed By: #### 2 88507 #### [facility],[address] [place] [address] CBC + DIFF Normal [facility] Comment on above: Result Comment: CBC- COMPLETE BLOOD COUNT Performed By: #### 2 24943 #### [facility],[address] [place] [address] EO # 0.05 x10EE3/UL Normal 0.00 - 0.50 [facility] Comment on above: Performed By: #### 2 67995 #### [facility],[address] [place] [address] Eosinophils/100 WBC (Bld) 0.6 % Normal 0.0 - 7.0 [facility] Comment on above: Performed By: #### 2 57570 #### [facility],[address] [place] [address] Erythrocyte distribution width (RBC) [Ratio] 13.8 % Normal 12.0 - 15.6 [facility] Comment on above: Performed By: #### 2 58655 #### [facility],[address] [place] [address] Hematocrit (Bld) [Volume fraction] 45.0 % Normal 40.0 - 52.0 [facility] Comment on above: Performed By: #### 2 33116 #### [facility],[address] [place] [address] Hemoglobin (Bld) [Mass/Vol] 16.0 g/dL Normal 13.0 - 17.5 [facility] Comment on above: Performed By: #### 2 47117 #### [facility],[address] [place] [address] Lymph # 2.21 x10EE3/UL Normal 0.80 - 2.80 [facility] Comment on above: Performed By: #### 2 40527 #### [facility],[address] [place] [address] Lymphocytes/100 WBC (Bld) 25.9 % Normal 20.0 - 45.0 [facility] Comment on above: Performed By: #### 2 67931 #### [facility],[address] [place], [place] [id number] MANUAL DIFF N/A Normal [facility] Comment on above: Performed By: #### 2 29859 #### [facility],[address] [place] [address] MCH (RBC) [Entitic mass] 33 pg Normal 27 - 33 [facility] Comment on above: Performed By: #### 2 00833 #### [facility],[address] [place] [address] MCHC 36 X10 3 Normal 32 - 36 [facility] Comment on above: Performed By: #### 2 13391 #### [facility],[address] [place] [address] MCV (RBC) [Entitic vol] 93 fL Normal 81 - 98 [facility] Comment on above: Performed By: #### 2 93707 #### [facility],[address] [place] [address] [place] # 0.68 x10EE3/UL Normal 0.20 - 1.00 [facility] Comment on above: Performed By: #### 2 51839 #### [facility],[address] [place] [address] MONOS % 7.9 % Normal 0.0 - 10.0 [facility] Comment on above: Performed By: #### 2 56525 #### [facility],[address] [place] [address] Morphology Félix (Bld) [Interp] N/A Normal [facility] Comment on above: Performed By: #### 2 13314 #### [facility],[address] [place] [address] Neut # 5.59 x10EE3/UL Normal 1.50 - 7.10 [facility] Comment on above: Performed By: #### 2 39119 #### [facility],[address] [place] [address] Neutrophils/100 WBC (Bld) 65.4 % Normal 46.0 - 76.0 [facility] Comment on above: Performed By: #### 2 72903 #### [facility],[address] [place] [address] PLATELET 324 x10EE3/UL Normal 150 - 450 [facility] Comment on above: Performed By: #### 2 20056 #### [facility],[address] [place] [address] Platelet mean volume (Bld) [Entitic vol] 6.9 fL Normal 6.4 - 10.5 [facility] Comment on above: Result Comment: AUTO MATED DIFFERENTIAL Performed By: #### 2 04073 #### [facility],[address] [place] [address]7976 RBC 4.85 x 10EE6/UL Normal 4.50 - 6.00 [facility] Comment on above: Performed By: #### 2 91267 #### [facility],[address] [place] [address] WBC 8.6 x 10EE3/UL Normal 4.5 - 10.8 [facility] Comment on above: Performed By: #### 2 65938 #### [facility],[address] [place] [address]652 CMP with eGFRon 04-14-2025 AGE 70 years Normal [facility] Comment on above: Performed By: #### 2 71330 #### [facility],[address] [place] [address] 18896 Albumin [Mass/Vol] 3.6 g/dL Normal 3.4 - 5.0 [facility] Comment on above: Performed By: #### 2 13726 #### [facility],[address] [place] [address]648 Albumin/Globulin [Mass ratio] 0.9 {ratio} Normal 0.9 - 1.6 [facility] Comment on above: Performed By: #### 2 35339 #### [facility],[address] [place] [address]453 ALK PHOS 73 U/L Normal 46 - 116 [facility] Comment on above: Performed By: #### 2 75740 #### [facility],[address] [place] [address] 74668 ALT [Catalytic activity/Vol] 26 U/L Normal 16 - 63 [facility] Comment on above: Performed By: #### 2 75933 #### [facility],[address] [place] [address]607 Anion gap [Moles/Vol] 12 mmol/L Normal 10 - 20 [facility] Comment on above: Performed By: #### 2 40685 #### [facility],[address] [place] [address] 93262 AST [Catalytic activity/Vol] 17 U/L Normal 15 - 37 [facility] Comment on above: Performed By: #### 2 54387 #### [facility],[address] [place] [address]172 B/C RATIO 23 ratio Normal 0 - 30 [facility] Comment on above: Performed By: #### 2 77241 #### [facility],[address] [place] [address]226 Bilirubin [Mass/Vol] 1.0 mg/dL Normal 0.2 - 1.0 [facility] Comment on above: Performed By: #### 2 35062 #### [facility],[address] [place] [address] 17952 Calcium [Mass/Vol] 9.0 mg/dL Normal 8.5 - 10.1 [facility] Comment on above: Performed By: #### 2 87635 #### [facility],[address] [place] [address] 15580 Chloride [Moles/Vol] 104 mmol/L Normal 98 - 107 [facility] Comment on above: Performed By: #### 2 76066 #### [facility],[address] [place], [place] [id number] CMP with eGFR Normal [facility] Comment on above: Result Comment: COMP REHENSIVE METABOLIC PANEL Performed By: #### 2 14609 #### [facility],[address] [place] [address] CO2 [Moles/Vol] 30.0 mmol/L Normal 21.0 - 32.0 [facility] Comment on above: Performed By: #### 2 14206 #### [facility],[address] [place] [address] 29627 Creatinine [Mass/Vol] 1.27 mg/dL Normal 0.70 - 1.30 [facility] Comment on above: Performed By: #### 2 00573 #### [facility],[address] [place] [address] 22525 eGFR 56 ML/MINUTE Low 60 - 999 [facility] Comment on above: Performed By: #### 2 99641 #### [facility],[address] [place] [address]2372 GFR/1.73 sq M.predicted among non-blacks MDRD (S/P/Bld) [Vol rate/Area] mL/min/{1.73_m2} Normal 60 - 999 [facility] Comment on above: Result Comment: ACCO RDING TO THE NATIONAL KIDNEY DISEASE EDUCATION PROGRAM(NKDE), A NORMAL eGFR IS A VALUE GREATER THAN OR EQUAL TO 60 ML/MIN/1.73 SQ METERS. CHRONIC KIDNEY DISEASE: <60mL/MIN/1.73 SQ METERS KIDNEY FAILURE: <15mL/MIN/1.73 SQ METERS THIS TEST SHOULD ONLY BE USED FOR PATIENTS 18 YEARS OF AGE AND OLDER. Performed By: #### 2 12004 #### [address] [address] Globulin (S) [Mass/Vol] 4.0 g/dL High 1.5 - 3.8 [facility] Comment on above: Performed By: #### 2 64926 #### [address] [address] Glucose [Mass/Vol] 109 mg/dL High 74 - 106 [facility] Comment on above: Performed By: #### 2 76595 #### [address] [address] Potassium [Moles/Vol] 3.7 mmol/L Normal 3.5 - 5.1 [facility] Comment on above: Performed By: #### 2 01463 #### [address] [address] Protein [Mass/Vol] 7.6 g/dL Normal 6.4 - 8.2 [facility] Comment on above: Performed By: #### 2 94820 #### [address] [address] Sodium [Moles/Vol] 142 mmol/L Normal 136 - 145 [facility] Comment on above: Performed By: #### 2 83310 #### [address] [address] Urea nitrogen [Mass/Vol] 29 mg/dL High - [facility] Comment on above: Performed By: #### 2 47998 #### [facility],[address] [place] [address] ABDOMEN/PELVIS Won 2024 CT ABDOMEN/PELVIS W [address] [address] Patient: MIAN FOSS Phone#: : 1955 Age: 70 Gender: M Pt. Type: ER Account: [id number] Location: [facility] Ordering: BRANDON PAZ Exam Date: 04/14/2025/21:16 Family Phys: KARENA SUGGS Charge Code: [id number] Physician: Norman Order #: [id number] Dose#: 14.4 MGY PROCEDURE: CT ABDOMEN/PELVIS WITH CONTRAST COMPARISON: [facility], CT, ABDOMEN/PELVIS W CON, 09/20/2024, 12:35. INDICATIONS: UMBILICAL AREA PAIN. TECHNIQUE: After obtaining the patient's consent, CT images were created with non-ionic intravenous contrast material. All CT scans at this facility use dose modulation, iterative reconstruction, and/or weight based dosing when appropriate to reduce radiation dose to as low as reasonably achievable. IV CONTRAST: Omnipaque 350,80ml TOTAL DOSE: 14.4 CTDIvol(mGy) FINDINGS: LIVER: There is a cyst in the caudate measuring 1.3 cm. BILIARY: Gallbladder is present. PANCREAS: Pancreatic atrophy SPLEEN: Normal. No enlargement or focal lesion. KIDNEYS: Kidneys enhance and excrete contrast symmetrically. No hydronephrosis. ADRENALS: Normal. No mass or enlargement. AORTA/VASCULAR: No aortic aneurysm. Accessory right renal artery. Circumaortic left renal vein. RETROPERITONEUM: Normal. No mass or adenopathy. BOWEL/MESENTERY: No bowel obstruction or dilatation. No significant stool burden. There is diverticulosis of the descending and sigmoid colon. Visualized portion of the appendix is unremarkable in size. ABDOMINAL WALL: There is a left inguinal hernia containing a portion of the urinary bladder, series 2, image 90-96. The subcutaneous tissues around the umbilicus are unremarkable. No fluid collection. Tiny fat containing umbilical hernia. No inflammatory stranding. URINARY BLADDER: Partially filled. Urinary bladder herniates into a left inguinal hernia, series 5, image 47. PELVIC NODES: Normal. No adenopathy. Continued Report - Page 2 of 2 Patient: MIAN FOSS Phone#: : 1955 Age: 70 Gender: M Pt. Type: ER Account: [id number] Location: 2 Ordering: BRANDON PAZ Exam Date: 04/14/2025/21:16 Family Phys: KARENA SUGGS Charge Code: [id number] Physician: Norman Order #: [id number] Dose#: 14.4 MGY PELVIC ORGANS: Prostate is enlarged measuring 5.6 x 4.9 x 6.2 cm. BONES: Disc height loss at L5-S1. Severe degenerative changes of both hips joint space loss and bulky acetabular and femoral head spurring. LUNG BASES: Normal. No visible pulmonary or pleural disease. OTHER: There is a lipoma in the musculature of the anterior right thigh measuring 8.1 by 4.1 x 3.1 cm. CONCLUSION: 1. Left inguinal hernia containing bladder 2. Tiny fat containing umbilical hernia, otherwise unremarkable umbilicus. Dictated by: Luana Layne MD on 04/14/2025 at 21:45 Approved by: Luana Layne MD on 04/14/2025 at 21:56 Normal [facility] LIPASEon 04-14-2025 Lipase [Catalytic activity/Vol] 55.0 U/L Normal 15.0 - 78.0 [facility] Comment on above: Result Comment: *PLE ASE NOTE THAT RANGES FOR LIPASE HAVE CHANGED OF 09/25/23 DUE TO AN ASSAY UPDATE BY THE [facility] [employer].THE NEW ASSAY RANGE IS 6-250 U/L, WITH A REFERENCE RANGE OF 16-77 U/L. 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 Allergies verified Given (NOW x1) and confirmed 5 rights. IV patency established. IV site checked: no 11:31 11/28/2024 pain, redness, or swelling. IV flushed thoroughly pre-medication Momo Howell R.N. administration. IVP given by nurse. Information reviewed with Scanned patient. Verbalizes understanding. - 11:31 Momo Howell R.N. MORPHine IVP 4 11:31 11/28 MORPHine IVP 4 mg given via Site# 1. Allergies Given mg (NOW x1, HIGH verified and confirmed 5 rights. IV patency established. IV site 11:31 11/28/2024 ALERT checked: no pain, redness, or swelling. IV flushed thoroughly Dimple GatesNJohn MEDICATION) pre-medication administration. IVP given by nurse. Information Scanned reviewed with patient. Verbalizes understanding. - 11:31 Momo Howell R.N. 1 of 1 Normal [facility] ED NURSES CLINICAL NOTEon ED NURSES CLINICAL NOTE Nurse Narrative Nurse Clinical Narrative [address] [address] [id number] 11/28/2024 [id number] Sex: Male : 1955 Age: 69y Primary Insurance: MEDICARE OUTPATIENT Policy Number: [id number] Subscriber: Other Disposition: Admit to [facility] Disposition Decision Time: 11:36 11/28/2024 Departure Time: 13:11 11/28/2024 TRIAGE Arrived by private vehicle. Historian: (patient). Accompanied by family. Primary physician (Nathaly Suggs). Triage time: 10:37 11/28/2024. Acuity: LEVEL 3. Chief Complaint: CHEST PAIN. Alert. No acute distress. This started yesterday. Onset. (1500). ( Left chest pain that started yesterday at 1500 and radiates into his left shoulder and back. He reports increased pain with deep breahing). SEPSIS SCREEN: NEGATIVE. SIRS criteria negative: heart rate greater than 90. No possible sources of infection. -- 10:45 11/28/24 BRIAN Eagle R.N. 10:42 11/28/24. BP: 175/96 MAP: 122. HR: 102. RR: 18. O2 saturation: 95% Temperature: 99.1 F. Pain level now 5/10. Describes the pain as pressure. -- 10:43 11/28/24 BRIAN Eagle R.N. Measurements: 10:42 11/28/24 Wt: 81.6 kg, Ht/Uriel: 69.0 in, BMI: 26.58 -- 10:42 11/28/24 BRIAN Eagle R.N. Medications: lisinopriL 10 mg tablet: 10 mg once a day every AM. -- 10:45 11/28/24 BRIAN Eagle R.N. 1 of 4 Nurse Narrative Allergies: no known drug allergies -- 10:45 11/28/24 BRIAN Eagle R.N. Problems: Hypertension -- 10:38 11/28/24 BRIAN Eagle R.N. ADDITIONAL SURGERIES: Hernia Repair -- 10:38 11/28/24 BRIAN Eagle R.N. History 10:37 11/28/24. SOCIAL HX: Never smoker. No alcohol use or drug use. The patient has not traveled outside the [place] Infectious disease exposure: No infectious disease exposure. ABUSE ASSESSMENT: Abuse denied. No suspicion of abuse. No report of abuse. SELF HARM ASSESSMENT: Self harm assessment was performed. The patient answered no to the question(s) Do you have thoughts of harming or killing yourself? and Do you have a plan for harming or killing yourself?. NUTRITIONAL RISK ASSESSMENT: The nutritional risk assessment revealed no deficiencies. FUNCTIONAL ASSESSMENT: Functional assessment: no impairments noted. LEARNING NEEDS ASSESSMENT: The learning needs assessment revealed no barriers. FALL RISK ASSESSMENT: Fall risk assessment completed. No risk factors identified. SKIN INTEGRITY ASSESSMENT: Skin integrity risk assessment completed. No skin integrity risk identified. -- 10:45 11/28/24 BRIAN Eagle R.N. Assessment 10:37 11/28/24. The patient states feels the same. -- 10:45 11/28/24 BRIAN Eagle R.N. 2 of 4 Nurse Narrative Interventions 10:37 11/28/24. Identification band on patient. To treatment room. Advanced care plan (FC). -- 10:45 11/28/24 BRIAN Eagle R.N. PHYSICAL ASSESSMENT 10:54 11/28/24. Ambulatory to room. ( chest/neck pain started last night, has gotten better today but is still concerned.). GENERAL / NEURO / PSYCH: Alert. Oriented X 4. Appears in no acute distress. RESPIRATORY: Respirations not labored. Breath sounds within normal limits. CVS: Heart sounds within normal limits. Capillary refill less than 2 seconds. GI / : Abdomen soft. SKIN: Skin is warm and dry. -- 10:54 11/28/24 BRIAN Howell R.N. NURSING PROGRESS NOTES 10:48 11/28/24. Site #1 started via IV in the left antecubital space with an 18g angiocath with aseptic technique and good blood return; 1 attempt. Blood drawn: rainbow set tube(s). Labeled in the presence of the patient and sent to the lab. Saline lock flushed with 5 mL saline. -- 10:50 11/28/24 BRIAN Howell R.N. 11:10 11/28/24. BP: 157/92 MAP: 117 mmHg. HR: 94 bpm. -- 12:28 25 BIRAN Howell R.N. 11:14 11/28/24. HR: 99 bpm. O2 saturation: 94%. -- 12:11/28/24 BRIAN Howell R.N. 11:11/28/24. Zofran IVP 4 mg given via Site# 1. Allergies verified and confirmed 5 rights. IV patency established. IV site checked: no pain, redness, or swelling. IV flushed thoroughly pre-medication administration. IVP given by nurse. Information reviewed with patient. Verbalizes understanding. -- 11:11/28/24 BRIAN Howell R.N. 11:11/28/24. MORPHine IVP 4 mg given via Site# 1. Allergies verified and confirmed 5 rights. IV patency established. IV site checked: no pain, redness, or swelling. IV flushed thoroughly pre-medication administration. IVP given by nurse. Information reviewed with patient. Verbalizes understanding. -- 11:11/28/24 BRIAN Howell R.N. 11:41 11/28/24. BP: 135/73 MAP: 96 mmHg. HR: 89 bpm. -- 12:11/28/24 BRIAN Howell R.N. 11:44 11/28/24. HR: 89 bpm. O2 saturation: 92%. -- 12:11/28/24 BRIAN Howell R.N. 11:51 11/28/24. Patient ID band checked for patient name and birthdate: p (more content not included)... Normal [facility] ED ORDER SHEET (CPOE ONLY)on 12-03-2024 ED ORDER SHEET (CPOE ONLY) Order Sheet Order Sheet [address] [place] [address] [id number] 11/28/2024 Patient: MIAN FOSS Sex: Male : 1955 Age: 69y MEASUREMENTS: Wt: 81.6 kg, Ht/Uriel: 69.0 in, BMI: 26.58 ALLERGIES: No known drug allergies MEDICATION/IV/DRIP/FL UID ORDERS Order Description Priority Entered Acknowledged Completed HYDROmorphone (Dilaudid) 11:19 11/28/2024 Cancelled: Other IVP4 mg (NOW x1, HIGH ALERT Brandon Paz, 11:23 EST Brandon Paz, MEDICATION) D.O. D.O. Zofran IVP4 mg (NOW x1) 11:19 11/28/2024 11:27 11:31 Brandon Paz, 11/28/2024 11/28/2024 Ara.Momo Maria, Parmjit.N. R.N. MORPHine IVP4 mg (NOW x1, 11:24 11/28/2024 11:27 11:31 HIGH ALERT MEDICATION) Brandon Paz, 11/28/2024 11/28/2024 Momo Silva R.N. R.N. Eliquis PO10 mg (NOW x1, 12:57 11/28/2024 Cancelled: Other HIGH ALERT MEDICATION) Brandon Paz, 13:16 BRIAN Howell R.N. D.O. 1 of 4 Order Sheet LAB ORDERS Order Description Priority Entered Acknowledged Collected Completed Troponin-I Protocol Stat 10:41 11/28/2024 10:41 11/28/2024 10:50 11/28/2024 (STAT 1hr) (Sched: q1h Momo Figueroa, Momo Howell, X2); Stat 1 of 2 D.O. R.N. R.N. Troponin-I Protocol Stat 10:41 11/28/2024 11:43 11/28/2024 (STAT 1hr) (Sched: q1h Momo Figueroa, X2); Stat 2 of 2 D.O. R.N. CBC w Diff Stat Stat 10:41 11/28/2024 10:41 11/28/2024 10:50 11/28/2024 Momo Figueroa Jamie Burgett, D.O. R.N. R.N. BNP Stat Stat 10:41 11/28/2024 10:41 11/28/2024 10:50 11/28/2024 Momo Figueroa Jamie Burgett, D.O. R.N. R.N. PT with INR Stat Stat 10:41 11/28/2024 10:41 11/28/2024 10:50 11/28/2024 Momo Figueroa Jamie Burgett, D.O. R.N. R.N. D-Dimer Stat Stat 10:41 11/28/2024 10:41 11/28/2024 10:50 11/28/2024 Momo Figueroa Jamie Burgett, D.O. R.N. R.N. EKG - ED Stat Stat 10:41 11/28/2024 10:41 11/28/2024 10:50 11/28/2024 Momo Figueroa Jamie Burgett, D.O. R.N. R.N. CMP Stat Stat 11:54 11/28/2024 11:59 11/28/2024 Momo Figueroa, 2 of 4 Order Sheet Ara.Nicolle Parnell.Tianna. DIAGNOSTIC STUDY ORDERS Order Description Priority Entered Acknowledged Completed Chest 1V Stat Stat 11:39 11/28/2024 Cancelled: Other Brandon Paz, 11:47 EST Clinton Figueroa.Nicolle Reason for Study: Chest Pain CT Chest PE Study Stat Stat 11:47 11/28/2024 11:50 Brandon Paz, 11/28/2024 Clinton Howell, R.N. Reason for Study: Chest Pain STAFF ORDERS Order Description Priority Entered Acknowledged Collected Completed Obtain Old EKG 10:41 11/28/2024 10:42 11/28/2024 10:42 11/28/2024 Momo Figueroa Jamie Burgett, D.O. R.N. R.N. Wire Drawing Machine Tender 10:41 11/28/2024 10:42 11/28/2024 10:51 11/28/2024 Momo Figueroa Jamie Burgett, D.O. R.N. R.N. Oxygen titrate to 92% 10:41 11/28/2024 10:42 11/28/2024 10:51 11/28/2024 Momo Figueroa Jamie Burgett, D.O. R.NJohn RJohnNJohn Vital signs every 15 10:41 11/28/2024 10:42 11/28/2024 10:51 11/28/2024 minutes Momo Figueroa Jamie Burgett, D.O. R.N. RCrystal 3 of 4 Order Sheet IV Saline Lock 10:41 11/28/2024 10:42 11/28/2024 10:51 11/28/2024 Momo Figueroa Jamie Burgett, D.O. R.NJohn RCrystal [Electronically signed by Brandon Paz D.O. (12/03/2024 08:19 EST)] 4 of 4 Normal [facility] ED PHYSICIAN CLINICAL REPORT on 12-03-2024 ED PHYSICIAN CLINICAL REPORT Narrative Physician Clinical Narrative [address] [address] [phone] 11/28/2024 Patient: MIAN FOSS Sex: Male : 1955 Age: 69y Primary Insurance: MEDICARE OUTPATIENT Policy Number: [id number] Subscriber: Other Disposition: Admit to [facility] Disposition Decision Time: 11:36 11/28/2024 Departure Time: 13:11 11/28/2024 Measurements Wt: 81.6 kg, Ht/Uriel: 69.0 in, BMI: 26.58 Initial Vital Sign Measured Time BP MAP HR RR O2Sat ETCO2 Temp Pain GCS RTS 10:42 11/28/2024 175/96 122 102 18 95% 99.1 F 5 Time Seen: 10:35 11/28/2024. Arrived- By private vehicle. Historian- patient. Independent historian- family. HISTORY OF PRESENT ILLNESS Chief Complaint: CHEST PAIN. This started last night Patient came in complaining of chest discomfort. He also had some in the left arm and neck. Started last night said the pain was at the worse 9/10. no shortness of breath. and is still present. REVIEW OF SYSTEMS GI: No abdominal pain. CONSTITUTIONAL: No fever. SKIN: No skin rash. NEUROLOGICAL: No fainting episodes. PAST HISTORY 1 of 12 Narrative See nurses notes. Hypertension Surgeries: Hernia Repair Medications: lisinopriL 10 mg tablet: 10 mg once a day every AM. Allergies: no known drug allergies SOCIAL HISTORY Never smoker. No alcohol use. ADDITIONAL NOTES The nursing notes have been reviewed. PHYSICAL EXAM Appearance: Alert. Oriented X3. No acute distress. Eyes: Pupils equal, round and reactive to light. Eyes normal inspection. ENT: Ears normal. Nose normal. Neck: Normal inspection. Neck supple. CVS: Normal heart rate and rhythm. Respiratory: No respiratory distress. Breath sounds normal. Abdomen: Soft and nontender. Skin: Normal skin color. Normal skin turgor. Extremities: Extremities exhibit normal ROM. No lower extremity edema. Neuro: Oriented X 3. No motor deficit. LABS, X-RAYS, AND EKG 12-LEAD EKG: EKG time: 10:39 11/28/2024. Normal sinus rhythm. Tachycardia. LVH. Abnormal axis. Left axis deviation. Abnormal QTc. The study has been interpreted contemporaneously by me. Interpretation time: 10:39 11/28/2024. 2 of 12 Narrative Laboratory Tests: CBC + DIFF Final JUAN CARLOS: 11/28/2024 10:48:00 EST MsgRcvd: 11/28/2024 11:15 EST Lab Test Result Reference Status Received Comments 11/28/2024 11:15 CBC-COMPLETE CBC + DIFF Final EST BLOOD COUNT 11.0 x 10/UL 11/28/2024 11:15 WBC 4.5 - 10.8 Final Above high normal EST 11/28/2024 11:15 RBC 5.12 x 10/UL 4.50 - 6.00 Final EST 11/28/2024 11:15 HEMOGLOBIN 16.4 g/dl 13.0 - 17.5 Final EST 11/28/2024 11:15 HEMATOCRIT 47.7 % 40.0 - 52.0 Final EST 11/28/2024 11:15 MCV 93 fl 81 - 98 Final EST 11/28/2024 11:15 MCH 32 pg 27 - 33 Final EST 11/28/2024 11:15 MCHC 34 X10 3 32 - 36 Final EST 11/28/2024 11:15 RDW/CV 13.5 % 12.0 - 15.6 Final EST 11/28/2024 11:15 PLATELET 282 x10/UL 150 - 450 Final EST 11/28/2024 11:15 AUTOMATED MPV 7.7 fl 6.4 - 10.5 Final EST DIFFERENTIAL 3 of 12 Narrative Lab Test Result Reference Status Received Comments 77.3 % 11/28/2024 11:15 NEUT % 46.0 - 76.0 Final Above high normal EST 13.4 % 11/28/2024 11:15 LYMPH % 20.0 - 45.0 Final Below low normal EST 11/28/2024 11:15 MONOS % 8.7 % 0.0 - 10.0 Final EST 11/28/2024 11:15 EO % 0.5 % 0.0 - 7.0 Final EST 11/28/2024 11:15 BASO % 0.2 % 0.0 - 2.0 Final EST 11/28/2024 11:15 Lymph # 1.47 x10/UL 0.80 - 2.80 Final EST 8.50 x10/UL 11/28/2024 11:15 Neut # 1.50 - 7.10 Final Above high normal EST 11/28/2024 11:15 [place] # 0.95 x10/UL 0.20 - 1.00 Final EST 11/28/2024 11:15 EO # 0.06 x10/UL 0.00 - 0.50 Final EST 11/28/2024 11:15 Baso # 0.02 x10/UL 0.00 - 0.10 Final EST 11/28/2024 11:15 MANUAL DIFF N/A New Order EST 11/28/2024 11:15 MORPHOLOGY N/A New Order EST TROPONIN Final JUAN CARLOS: 11/28/2024 10:48:00 EST MsgRcvd: 11/28/2024 11:24 EST 4 of 12 Narrative Lab Test Result Reference Status Received Comments 11/28/2024 11:24 HS TROPONIN 12.3 pg/mL 0.0 - 76.2 Final EST CMP with eGFR Final JUAN CARLOS: 11/28/2024 11:48:00 EST MsgRcvd: 11/28/2024 12:45 EST Lab Test Result Reference Status Received Comments COMPREHENSIVE 11/28/2024 CMP with eGFR Final METABOLIC 12:45 EST PANEL 11/28/2024 SODIUM 137 mmol/l 136 - 145 Final 12:45 EST 11/28/2024 POTASSIUM 4.2 mmol/L 3.5 - 5.1 Final 12:45 EST 11/28/2024 CHLORIDE 102 mmol/L 98 - 107 Final 12:45 EST 11/28/2024 CO2 31.9 mmol/L 21.0 - 32.0 Final 12:45 EST 115 mg/dl 11/28/2024 GLUCOSE Above high 74 - 106 Final 12:45 EST normal 21 mg/dl 11/28/2024 BUN Above high 7 - 18 Final 12:45 EST normal 11/28/2024 CREATININE 1.16 mg/dl 0.70 - 1.3 (more content not included)... Normal [facility] ED SUPER BILLon 12-03-2024 ED SUPER BILL [address] [address] [phone] 11/28/2024 Patient: MIAN FOSS Sex: Male : 1955 Age: 69y Item Facility Professional Category Description Code Code Quantity Fee Total Nurse/E/M EMERGENCY 933019 1 $0.00 $0.00 DEPARTMENT VISIT HIGH/URGENT SEVERITY (14633-46) Nurse/IV/IM/Infusions IVP additional 531447 1 $0.00 $0.00 push (24718) Nurse/IV/IM/Infusions IVP initial 192578 1 $0.00 $0.00 (72191) Grand Total $0.00 Providers Brandon Paz D.O. Chief Complaint CHEST PAIN. 1 of 2 [facility] Principal Diagnosis Chest pain characterized as discomfort, with painful respirations. Acute pulmonary embolism. No acute cor pulmonale. ICD-10 Codes I26.99: Other pulmonary embolism without acute cor pulmonale R07.89: Other chest pain R07.1: Chest pain on breathing 2 of 2 Normal [facility] ED VISIT SUMMARYon ED VISIT SUMMARY Visit Overview Visit Overview [address] [address] [id number] 11/28/2024 Patient: MIAN FOSS Sex: Male : 1955 Age: 69y 12/03/2024 08:19 AM EST ED Arrival:10:34 11/28/2024 EST Status: Recent Travel:no Language:eng Adv Directive: Isolation Status: Ethnicity:N Fall Risk:no risk Infectious Disease Exposure:no Measurements:5'9 / 175.3 Self-Harm Status:no risk Sepsis Screen:negative cm 180.0 lb / 81.6 kg Chief Complaint:CHEST PAIN, (1500), (Nathaly Marcio), and (Left chest pain that started yesterday at 1500 and radiates into his left shoulder and back. He reports increased pain with deep breahing) ALLERGIES No Known Drug Allergies HOME MEDICATIONS lisinopriL 10 mg tablet: 10 mg once a day every AM. 3 Visit Overview PAST MEDICAL HISTORY / PROBLEMS Hypertension See nurses notes PAST SURGICAL HISTORY Hernia Repair SOCIAL HISTORY Nutritional assessment: No deficits Functional assessment: No impairments Learning needs: No barriers Smoking status: No Alcohol use: No Drug use: No ED COURSE MEDICATIONS GIVEN IN EMERGENCY DEPARTMENT 11:31 11/28/24 Zofran IVP 4 mg 11:31 11/28/24 MORPHine IVP 4 mg IV SITE INFORMATION 10:48 11/28/24 Site #1 left AC, 18g. Saline lock. INTAKE OUTPUT REASSESMENT (most recent) 10:54 11/28/24. Ambulatory to room. ( chest/neck pain started last night, has gotten better today but is still concerned.). GENERAL / NEURO / PSYCH: Alert. Oriented X 4. Appears in no acute distress. RESPIRATORY: Respirations not labored. Breath sounds within normal limits. CVS: Heart sounds within normal limits. Capillary refill less than 2 seconds. GI / : Abdomen soft. SKIN: Skin is warm and dry. VITAL SIGNS 3 Visit Overview First Vitals Last Vitals Temp 10:11/28/24 99.1 F Temp 13:08 11/28/24 BP 10:11/28/24 175/96 BP 13:11/28/24 HR 10:11/28/24 102 HR 13:11/28/24 188 RR 10:11/28/24 18 RR 13:08 11/28/24 O2 Sat 10:11/28/24 95% O2 Sat 13:11/28/24 84% Pain 10:42 11/28/24 5 Pain 13:08 11/28/24 ETCO2 10:42 11/28/24 ETCO2 13:08 11/28/24 GCS 10:42 11/28/24 GCS 13:08 11/28/24 RTS 10:42 11/28/24 RTS 13:08 11/28/24 PROCEDURES NURSING INTERVENTIONS LABS / STUDIES LABS / STUDIES ORDERED BNP CBC w Diff CMP CT Chest PE Study D-Dimer EKG - ED PT with INR Troponin-I Protocol (STAT 1hr) Troponin-I Protocol (STAT 1hr) CLINICAL IMPRESSION ACUTE PULMONARY EMBOLISM. NO ACUTE COR PULMONALE CHEST PAIN CHARACTERIZED DISCOMFORT, WITH PAINFUL RESPIRATIONS 3 of 3 Normal [facility] ED VITALS FLOW SHEETon 12-03 ED VITALS FLOW SHEET Vitals Vital Sign Flow Sheet [address] [address] [id number] 11/28/2024 Patient: MIAN FOSS Sex: Male : 1955 Age: 69y Measurements Wt: 81.6 kg, Ht/Uriel: 69.0 in, BMI: 26.58 Measured Time BP MAP HR RR O2Sat ETCO2 Temp Pain GCS RTS 13:08 11/28/2024 188 84% 13:03 11/28/2024 92 93% 12:58 11/28/2024 90 92% 12:55 11/28/2024 159/93 115 88 12:53 11/28/2024 89 93% 12:48 11/28/2024 90 93% 12:43 11/28/2024 92 93% 12:41 11/28/2024 162/93 105 87 12:38 11/28/2024 91 93% 12:33 11/28/2024 88 93% 12:28 11/28/2024 90 93% 12:26 11/28/2024 160/88 107 90 12:23 11/28/2024 0% 12:20 11/28/2024 101 98% 12:15 11/28/2024 92 94% 1 of 2 Vitals Measured Time BP MAP HR RR O2Sat ETCO2 Temp Pain GCS RTS 12:11 11/28/2024 163/93 106 88 12:10 11/28/2024 90 92% 12:09 11/28/2024 92 92% 12:04 11/28/2024 91 92% 11:59 11/28/2024 90 92% 11:56 11/28/2024 144/79 101 91 11:54 11/28/2024 93 92% 11:49 11/28/2024 93 93% 11:44 11/28/2024 89 92% 11:41 11/28/2024 135/73 96 89 11:39 11/28/2024 92 93% 11:34 11/28/2024 95 92% 11:29 11/28/2024 96 93% 11:25 11/28/2024 158/91 113 97 11:24 11/28/2024 96 93% 11:19 11/28/2024 95 93% 11:14 11/28/2024 99 94% 11:10 11/28/2024 157/92 117 94 11:09 11/28/2024 93 94% 11:04 11/28/2024 97 95% 10:59 11/28/2024 97 94% 10:56 11/28/2024 158/89 120 98 10:54 11/28/2024 101 94% 10:42 11/28/2024 175/96 122 102 18 95% 99.1 F 5 2 of 2 Normal [facility] BMP with eGFR DAILYon 2024 AGE 69 years Normal [facility] Comment on above: Performed By: #### 2 [id number] #### [facility],[address] [place] [address] Anion gap [Moles/Vol] 12 mmol/L Normal 10 - 20 [facility] Comment on above: Performed By: #### 2 29978 #### [place] [address] BMP with eGFR DAILY Normal [facility] Comment on above: Result Comment: BASI C METABOLIC PANEL Performed By: #### 2 61036 #### [facility],[address] [place] [address] Calcium [Mass/Vol] 8.3 mg/dL Low 8.5 - 10.1 [facility] Comment on above: Performed By: #### 2 71853 #### [facility],[address] [place], [place] [id number] Chloride [Moles/Vol] 99 mmol/L Normal 98 - 107 [facility] Comment on above: Performed By: #### 2 10425 #### [facility],[address] [place] [address] CO2 [Moles/Vol] 26.0 mmol/L Normal 21.0 - 32.0 [facility] Comment on above: Performed By: #### 2 94093 #### [facility],[address] [place], [place] [id number] Creatinine [Mass/Vol] 1.47 mg/dL High 0.70 - 1.30 [facility] Comment on above: Performed By: #### 2 36101 #### [facility],[address] [place], [place] [id number] eGFR 48 ML/MINUTE Low 60 - 999 [facility] Comment on above: Performed By: #### 2 01576 #### [facility],[address] [place], [place] [id number] eGFR(AA) 58 ML/MINUTE Low 60 - 999 [facility] Comment on above: Result Comment: ACCO RDING TO THE NATIONAL KIDNEY DISEASE EDUCATION PROGRAM(NKDE), A NORMAL eGFR IS A VALUE GREATER THAN OR EQUAL TO 60 ML/MIN/1.73 SQ METERS. CHRONIC KIDNEY DISEASE: <60mL/MIN/1.73 SQ METERS KIDNEY FAILURE: <15mL/MIN/1.73 SQ METERS THIS TEST SHOULD ONLY BE USED FOR PATIENTS 18 YEARS OF AGE AND OLDER. Performed By: #### 2 53584 #### [facility],[address] [place], [place] [id number] Glucose [Mass/Vol] 96 mg/dL Normal 74 - 106 [facility] Comment on above: Performed By: #### 2 35693 #### [facility],[address] [place] [address] Potassium [Moles/Vol] 4.0 mmol/L Normal 3.5 - 5.1 [facility] Comment on above: Performed By: #### 2 60312 #### [facility],[address] [place] [address] Sodium [Moles/Vol] 133 mmol/L Low 136 - 145 [facility] Comment on above: Performed By: #### 2 48023 #### [facility],[address] [place] [address] Urea nitrogen [Mass/Vol] 38 mg/dL High 7 - 18 [facility] Comment on above: Performed By: #### 2 70155 #### [facility],[address] [place] [address] CBC DAILYon 11-30-2024 Baso # 0.02 x10EE3/UL Normal 0.00 - 0.10 [facility] Comment on above: Performed By: #### 2 89930 #### [facility],[address] [place] [address] Basophils/100 WBC (Bld) 0.3 % Normal 0.0 - 2.0 [facility] Comment on above: Performed By: #### 2 25931 #### [facility],[address] [place] [address] EO # 0.02 x10EE3/UL Normal 0.00 - 0.50 [facility] Comment on above: Performed By: #### 2 75413 #### [facility],[address] [place] [address] Eosinophils/100 WBC (Bld) 0.3 % Normal 0.0 - 7.0 [facility] Comment on above: Performed By: #### 2 75240 #### [facility],[address] [place] [address] Erythrocyte distribution width (RBC) [Ratio] 12.8 % Normal 12.0 - 15.6 [facility] Comment on above: Performed By: #### 2 14899 #### [facility],[address] [place] [address] Hematocrit (Bld) [Volume fraction] 39.6 % Low 40.0 - 52.0 [facility] Comment on above: Performed By: #### 2 43962 #### [facility],[address] [place] [address] Hemoglobin (Bld) [Mass/Vol] 13.6 g/dL Normal 13.0 - 17.5 [facility] Comment on above: Performed By: #### 2 97021 #### [facility],[address] [place] [address] Lymph # 1.39 x10EE3/UL Normal 0.80 - 2.80 [facility] Comment on above: Performed By: #### 2 12942 #### [facility],[address] [place], [place] [id number] Lymphocytes/100 WBC (Bld) 18.6 % Low 20.0 - 45.0 [facility] Comment on above: Performed By: #### 2 95332 #### [facility],[address] [place] [address] MANUAL DIFF N/A Normal [facility] Comment on above: Performed By: #### 2 76252 #### [facility],[address] [place], [place] [id number] MCH (RBC) [Entitic mass] 33 pg Normal 27 - 33 [facility] Comment on above: Performed By: #### 2 10261 #### [facility],[address] [place] [address] MCHC 34 X10 3 Normal 32 - 36 [facility] Comment on above: Performed By: #### 2 81535 #### [facility],[address] [place], [place] [phone] MCV (RBC) [Entitic vol] 96 fL Normal 81 - 98 [facility] Comment on above: Performed By: #### 2 78492 #### [facility],[address] [place] [address] [place] # 0.93 x10EE3/UL Normal 0.20 - 1.00 [facility] Comment on above: Performed By: #### 2 46741 #### [facility],[address] [place] [address] MONOS % 12.4 % High 0.0 - 10.0 [facility] Comment on above: Performed By: #### 2 47009 #### [facility],[address] [place], [place] [id number] Morphology Félix (Bld) [Interp] N/A Normal [facility] Comment on above: Performed By: #### 2 31679 #### [facility],[address] [place] [address] Neut # 5.11 x10EE3/UL Normal 1.50 - 7.10 [facility] [facility] Comment on above: Performed By: #### 2 40566 #### [facility],[address] [place] [address] Neutrophils/100 WBC (Bld) 68.4 % Normal 46.0 - 76.0 [facility] Comment on above: Performed By: #### 2 36799 #### [facility],[address] [place], [place] [id number] PLATELET 227 x10EE3/UL Normal 150 - 450 [facility] Comment on above: Performed By: #### 2 15778 #### [facility],[address] [place] [address] 17573 Platelet mean volume (Bld) [Entitic vol] 7.8 fL Normal 6.4 - 10.5 [facility] Comment on above: Result Comment: AUTO MATED DIFFERENTIAL Performed By: #### 2 29394 #### [facility],[address] [place] [address] 01970 RBC 4.14 x 10EE6/UL Low 4.50 - 6.00 [facility] Comment on above: Performed By: #### 2 08241 #### [facility],[address] [place] [address] 47885 WBC 7.5 x 10EE3/UL Normal 4.5 - 10.8 [facility] Comment on above: Performed By: #### 2 11119 #### [facility],[address] [place] [address] 36443 MAGNESIUM DAILYon 11-30-2024 Magnesium [Mass/Vol] 1.8 mg/dL Normal 1.8 - 2.4 [facility] Comment on above: Performed By: #### 2 17757 #### [facility],[address] [place] [address] 15829 APTTon 11-29-2024 aPTT Coag (Bld) [Time] 53.7 s High 25.4 - 38.4 [facility] Comment on above: Performed By: #### 2 94468 #### [facility],[address] [place] [address] 58738 aPTT Coag (Bld) [Time] 68.9 s High 25.4 - 38.4 [facility] Comment on above: Performed By: #### 2 05966 #### [facility],[address] [place] [address] 24696 BMP with eGFR DAILYon 2024 AGE 69 years Normal [facility] Comment on above: Performed By: #### 2 59131 #### [facility],[address] [place] [address] 96346 Anion gap [Moles/Vol] 14 mmol/L Normal 10 - 20 [facility] Comment on above: Performed By: #### 2 76708 #### [facility],[address] [place] [address] 84057 BMP with eGFR DAILY Normal [facility] Comment on above: Result Comment: BASI C METABOLIC PANEL Performed By: #### 2 92847 #### [facility],[address] [place] [address] 78024 Calcium [Mass/Vol] 8.8 mg/dL Normal 8.5 - 10.1 [facility] Comment on above: Performed By: #### 2 10963 #### [facility],[address] [place], [place] [id number] Chloride [Moles/Vol] 103 mmol/L Normal 98 - 107 [facility] Comment on above: Performed By: #### 2 12384 #### [place] [id number] CO2 [Moles/Vol] 25.9 mmol/L Normal 21.0 - 32.0 [facility] Comment on above: Performed By: #### 2 91065 #### [facility],[address] [place] [address] 74023 Creatinine [Mass/Vol] 1.48 mg/dL High 0.70 - 1.30 [facility] Comment on above: Performed By: #### 2 49069 #### [facility],[address] [place] [address] 65143 eGFR 47 ML/MINUTE Low 60 - 999 [facility] Comment on above: Performed By: #### 2 35840 #### [address] [address] eGFR(AA) 57 ML/MINUTE Low 60 - 999 [facility] Comment on above: Result Comment: ACCO RDING TO THE NATIONAL KIDNEY DISEASE EDUCATION PROGRAM(NKDE), A NORMAL eGFR IS A VALUE GREATER THAN OR EQUAL TO 60 ML/MIN/1.73 SQ METERS. CHRONIC KIDNEY DISEASE: <60mL/MIN/1.73 SQ METERS KIDNEY FAILURE: <15mL/MIN/1.73 SQ METERS THIS TEST SHOULD ONLY BE USED FOR PATIENTS 18 YEARS OF AGE AND OLDER. Performed By: #### 2 27447 #### [facility],[address] [place] [address] 58422 Glucose [Mass/Vol] 93 mg/dL Normal 74 - 106 [facility] Comment on above: Performed By: #### 2 58419 #### [facility],[address] [place] [address] 89540 Potassium [Moles/Vol] 4.5 mmol/L Normal 3.5 - 5.1 [facility] Comment on above: Performed By: #### 2 45622 #### [facility],[address] [place] [address] 02158 Sodium [Moles/Vol] 138 mmol/L Normal 136 - 145 [facility] Comment on above: Performed By: #### 2 63742 #### [facility],[address] [place] [address] 13358 Urea nitrogen [Mass/Vol] 28 mg/dL High 7 - 18 [facility] Comment on above: Performed By: #### 2 11809 #### [facility],[address] [place] [address] 81423 CBC DAILYon 11-29-2024 Baso # 0.02 x10EE3/UL Normal 0.00 - 0.10 [facility] Comment on above: Performed By: #### 2 78129 #### [facility],[address] [place] [address] 22649 Basophils/100 WBC (Bld) 0.2 % Normal 0.0 - 2.0 [facility] Comment on above: Performed By: #### 2 10435 #### [facility],[address] [place] [address] 45302 EO # 0.04 x10EE3/UL Normal 0.00 - 0.50 [facility] Comment on above: Performed By: #### 2 19653 #### [facility],[address] [place] [address] 21292 Eosinophils/100 WBC (Bld) 0.4 % Normal 0.0 - 7.0 [facility] Comment on above: Performed By: #### 2 18402 #### [facility],[address] [place] [address] Erythrocyte distribution width (RBC) [Ratio] 13.3 % Normal 12.0 - 15.6 [facility] Comment on above: Performed By: #### 2 81547 #### [facility],[address] [place] [address] Hematocrit (Bld) [Volume fraction] 43.1 % Normal 40.0 - 52.0 [facility] Comment on above: Performed By: #### 2 34418 #### [facility],[address] [place] [address] Hemoglobin (Bld) [Mass/Vol] 14.7 g/dL Normal 13.0 - 17.5 [facility] Comment on above: Performed By: #### 2 56664 #### [facility],[address] [place] [address] Lymph # 1.43 x10EE3/UL Normal 0.80 - 2.80 [facility] Comment on above: Performed By: #### 2 66364 #### [facility],[address] [place] [address] Lymphocytes/100 WBC (Bld) 16.1 % Low 20.0 - 45.0 [facility] Comment on above: Performed By: #### 2 07727 #### [facility],[address] [place], [place] [id number] MANUAL DIFF N/A Normal [facility] Comment on above: Performed By: #### 2 64417 #### [facility],[address] [place], [place] [id number] MCH (RBC) [Entitic mass] 32 pg Normal 27 - 33 [facility] Comment on above: Performed By: #### 2 70201 #### [facility],[address] [place] [address] MCHC 34 X10 3 Normal 32 - 36 [facility] Comment on above: Performed By: #### 2 50060 #### [facility],[address] [place] [address] 25818 MCV (RBC) [Entitic vol] 95 fL Normal 81 - 98 [facility] Comment on above: Performed By: #### 2 33754 #### [facility],[address] [place] [address] 35604 [place] # 0.88 x10EE3/UL Normal 0.20 - 1.00 [facility] Comment on above: Performed By: #### 2 42481 #### [facility],[address] [place] [address] 45081 MONOS % 9.9 % Normal 0.0 - 10.0 [facility] Comment on above: Performed By: #### 2 59872 #### [facility],[address] [place], [place] [id number] Morphology Félix (Bld) [Interp] N/A Normal [facility] Comment on above: Performed By: #### 2 59934 #### [facility],[address] [place] [address] 44365 Neut # 6.48 x10EE3/UL Normal 1.50 - 7.10 [facility] Comment on above: Performed By: #### 2 09144 #### [facility],[address] [place] [address] 02735 Neutrophils/100 WBC (Bld) 73.4 % Normal 46.0 - 76.0 [facility] Comment on above: Performed By: #### 2 06032 #### [facility],[address] [place] [address] 43780 PLATELET 232 x10EE3/UL Normal 150 - 450 [facility] Comment on above: Performed By: #### 2 72149 #### [facility],[address] [place] [address] 97231 Platelet mean volume (Bld) [Entitic vol] 7.8 fL Normal 6.4 - 10.5 [facility] Comment on above: Result Comment: AUTO MATED DIFFERENTIAL Performed By: #### 2 28351 #### [facility],[address] [place] [address] 68031 RBC 4.56 x 10EE6/UL Normal 4.50 - 6.00 [facility] Comment on above: Performed By: #### 2 49551 #### [facility],[address] [place] [address] 19704 WBC 8.8 x 10EE3/UL Normal 4.5 - 10.8 [facility] Comment on above: Performed By: #### 2 53430 #### [facility],[address] [place] [address] 43865 CV ECHO COMPLETE CV ECHO COMPLETE [place] [address] Patient: MIAN FOSS Phone#: : 1955 Age: 69 Gender: M Pt. Type: ER Account: [id number] Location: [facility] [place] Ordering: ABIOLA STAPLETON Exam Date: 11/29/2024/7:24 Family Phys: KARENA SUGGS Charge Code: [id number] Physician: Norman Order #: [id number] Dose#: PROCEDURE: ECHOCARDIOGRAM WITH DOPPLER AND COLOR FLOW HISTORY: INDICATIONS: Chest pain COMPARISON: None. TECHNIQUE: A 2-D ultrasound, color spectral Doppler and M-mode evaluation of the heart and great vessels. PATIENT MEASUREMENTS: Height (in.): 69 BSA: 1.97 Weight (lbs.): 179 BP: 139/78 Graphic Coordinator: ROSELINE M MODE 2D MEASUREMENTS AND CALCULATIONS: LVIDd: 4.91 cm LVIDs: 3.51 cm IVSd: 1.28 cm LVPWd: 1.43 cm LVOT diam: 2.20 cm FS: 28.52 % Ao Root diam: 3.37 cm LA diam: LA Volume Index: LA A4 Area: 19.26 cm2 RA A4 Area: RVDd: TAPSE: DOPPLER MEASUREMENTS AND CALCULATIONS MITRAL MV E MAX cleo: 0.44 m/s MV A MAX cleo: 0.94 m/s MV E-A ratio: 0.47 MVA VTI 3.75 cm2 MV V2 max: 0.86 m/s MV max P.97 mm[Hg] Continued Report - Page 2 of 3 Patient: MIAN FOSS Phone#: : 1955 Age: 69 Gender: M Pt. Type: ER Account: [id number] Location: [facility] [place] Ordering: TAYLORJAYMEARTEMIO STAPLETON Exam Date: 11/29/2024/7:24 Family Phys: KARENA SUGGS Charge Code: [id number] Physician: Norman Order #: [id number] Dose#: MV V2 mean: 0.52 m/s MV mean P.18 mm[Hg] MV V2 VTI: 17.35 cm MV PHT: 108.80 ms MVA PHT 2.02 cm2 ERO: Reg Vol Lat Peak E' Cleo Septal Peak E' CLEO AORTIC Ao V2 max: 1.31 m/s Ao max P.86 mm[Hg] Ao V2 mean: 0.98 m/s Ao mean P.26 mm[Hg] Ao V2 VTI: 24.55 cm RODRIGO (V Max): 2.81 cm2 RORDIGO (VTI): 2.65 cm2 AI max cleo AI max PG AI dec [place] AI PHT LV V1 Max 0.97 m/s LV V1 Max PG 3.75 mm[Hg] LV V1 Mean PG 2.54 mm[Hg] LV V1 mean 0.78 m/s LV V1 VTI 17.14 cm PULMONIC PA V2 Max 1.13 m/s PA Max PG 5.07 mm[Hg] TRICUSPID TR Max Cleo TR max PG RVSP 2D/M-MODE AND COLOR FLOW LEFT VENTRICLE: Normal left ventricular size and function. Left ventricular ejection fraction 55-60%. Grade 1 diastolic dysfunction. Moderate concentric left ventricular hypertrophy. Global longitudinal strain reduced at-15.8%. WALL MOTION: 1 - Basal anterior: Normal. 7 - Mid anterior: Normal. 13 - Apical anterior: Normal. 2 - Basal anteroseptal: Normal. 8 - Mid anteroseptal: Normal. 14 - Apical septal: Normal. Continued Report - Page 3 of 3 Patient: MIAN FOSS Phone#: : 1955 Age: 69 Gender: M Pt. Type: ER Account: [id number] Location: [facility] [place] Ordering: ABIOLA STAPLETON Exam Date: 11/29/2024/7:24 Family Phys: KARENA SUGGS Charge Code: [id number] Physician: Norman Order #: [id number] Dose#: 3 - Basal inferoseptal: Normal. 9 - Mid inferoseptal: Normal. 15 - Apical inferior: Normal. 4 - Basal inferior: Normal. 10-Mid inferior: Normal. 16 - Apical lateral: Normal. 5 - Basal inferolateral: Normal. 11-Mid inferolateral: Normal. 6 - Basal anterolateral: Normal. 12-Mid anterolateral: Normal. RIGHT VENTRICLE: Normal right ventricular size and function LEFT ATRIUM: Upper normal RIGHT ATRIUM: Normal ATRIAL SEPTUM: Cannot rule out interatrial origin without agitated saline bubble study. MITRAL VALVE: Trivial mitral regurgitation. No mitral stenosis TRICUSPID VALVE: Mild tricuspid regurgitation AORTIC VALVE: Trivial aortic regurgitation. No aortic stenosis PULMONIC VALVE: Mild pulmonic valve regurgitation AORTIC ROOT: Upper normal aortic root and proximal ascending aorta AORTIC ARCH: Not evaluated DESC THORACIC AORTA: Not evaluated IVC/SVC: Normal IVC size. Respiratory phasic changes normal. PULMONARY ARTERY: Not evaluated PULMONARY VEINS: Not evaluated PERICARDIUM: No pericardial effusion PLEURA: Not evaluated CONCLUSION: 1. Normal left ventricular size and function. Left ventricular ejection fraction 55-60%. Moderate concentric left ventricular hypertrophy. Reduced global long visual strain-15.8%. Can consider further workup for LVH if clinically warranted. Grade 1 diastolic dysfunction Dictated by: ABDOUL VALLE on 11/29/2024 at 18:08 Approved by: ABDOUL VALLE on 11/29/2024 at 18:13 Normal [facility] LIPID PROFILEon 11-29-2024 Cholesterol [Mass/Vol] 115 mg/dL Normal 0 - 240 [facility] Comment on above: Performed By: #### 2 07610 #### [facility],[address] [place] [address] Cholesterol in HDL [Mass/Vol] 44 mg/dL Normal 40 - 60 [facility] Comment on above: Performed By: #### 2 96951 #### [facility],[address] [place] [address] 04248 Cholesterol in LDL [Mass/Vol] 59 mg/dL Normal 0 - 129 [facility] Comment on above: Performed By: #### 2 31269 #### [facility],[address] [place] [address] 20933 Cholesterol.total/Cho lesterol in HDL [Mass ratio] 2.6 {ratio} Normal 0.0 - 5.0 [facility] Comment on above: Performed By: #### 2 60065 #### [facility],[address] [place] [address] 15216 Lipid 1996 panel Normal [facility] Comment on above: Result Comment: LIPI D PROFILE Performed By: #### 2 84140 #### [facility],[address] [place] [address] 70048 Triglyceride [Mass/Vol] 58 mg/dL Normal 0 - 150 [facility] Comment on above: Performed By: #### 2 20347 #### [facility],[address] [place] [address] 77019 MAGNESIUM DAILYon 11-29-2024 Magnesium [Mass/Vol] 1.8 mg/dL Normal 1.8 - 2.4 [facility] Comment on above: Performed By: #### 2 02197 #### [facility],[address] [place] [address] 16552 TROPONIN I, HIGH SENSITIVITY on 11-29-2024 HS TROPONIN 16.6 pg/mL Normal 0.0 - 76.2 [facility] Comment on above: Performed By: #### 2 53467 #### [facility],[address] [place] [address] 01955 APTT-HEPARINon 11-28-2024 aPTT Coag (Bld) [Time] 131.0 s Critically high 51.0 - 89.0 [facility] Comment on above: Result Comment: { CA LLED TO SUHAS LI@ 2054 BY LZ { READ BACK BY SUHAS LI RA 2055 Performed By: #### 2 61459 #### [facility],[address] [place] [address] 43428 CBC + DIFFon 11-28-2024 Baso # 0.02 x10EE3/UL Normal 0.00 - 0.10 [facility] Comment on above: Performed By: #### 2 76306 #### [facility],[address] [place] [address] 93281 Basophils/100 WBC (Bld) 0.2 % Normal 0.0 - 2.0 [facility] Comment on above: Performed By: #### 2 86451 #### [facility],[address] [place] [address] 47305 CBC + DIFF Normal [facility] Comment on above: Result Comment: CBC- COMPLETE BLOOD COUNT Performed By: #### 2 63430 #### [facility],[address] [place] [address] 12072 EO # 0.06 x10EE3/UL Normal 0.00 - 0.50 [facility] Comment on above: Performed By: #### 2 40025 #### [facility],[address] [place] [address] 17838 Eosinophils/100 WBC (Bld) 0.5 % Normal 0.0 - 7.0 [facility] Comment on above: Performed By: #### 2 60808 #### [facility],[address] [place] [address] 36146 Erythrocyte distribution width (RBC) [Ratio] 13.5 % Normal 12.0 - 15.6 [facility] Comment on above: Performed By: #### 2 71114 #### [facility],[address] [place] [address] 42330 Hematocrit (Bld) [Volume fraction] 47.7 % Normal 40.0 - 52.0 [facility] Comment on above: Performed By: #### 2 99358 #### [facility],[address] [place] [address] 81226 Hemoglobin (Bld) [Mass/Vol] 16.4 g/dL Normal 13.0 - 17.5 [facility] Comment on above: Performed By: #### 2 74961 #### [facility],[address] [place], [place] [address] Lymph # 1.47 x10EE3/UL Normal 0.80 - 2.80 [facility] Comment on above: Performed By: #### 2 89969 #### [facility],[address] [place] [address] Lymphocytes/100 WBC (Bld) 13.4 % Low 20.0 - 45.0 [facility] Comment on above: Performed By: #### 2 83439 #### [facility],[address] [place] [address] MANUAL DIFF N/A Normal [facility] Comment on above: Performed By: #### 2 51267 #### [facility],[address] [place], [place] [id number] MCH (RBC) [Entitic mass] 32 pg Normal 27 - 33 [facility] Comment on above: Performed By: #### 2 05494 #### [facility],[address] [place] [address] 41602 MCHC 34 X10 3 Normal 32 - 36 [facility] Comment on above: Performed By: #### 2 57910 #### [facility],[address] [place] [address] 01500 MCV (RBC) [Entitic vol] 93 fL Normal 81 - 98 [facility] Comment on above: Performed By: #### 2 33336 #### [facility],[address] [place] [address] 35782 [place] # 0.95 x10EE3/UL Normal 0.20 - 1.00 [facility] Comment on above: Performed By: #### 2 09592 #### [facility],[address] [place] [address] 98409 MONOS % 8.7 % Normal 0.0 - 10.0 [facility] Comment on above: Performed By: #### 2 07760 #### [facility],[address] [place] [address] Morphology Félix (Bld) [Interp] N/A Normal [facility] Comment on above: Performed By: #### 2 99480 #### [facility],[address] [place] [address] Neut # 8.50 x10EE3/UL High 1.50 - 7.10 [facility] Comment on above: Performed By: #### 2 70307 #### [place] [address] Neutrophils/100 WBC (Bld) 77.3 % High 46.0 - 76.0 [facility] Comment on above: Performed By: #### 2 83945 #### [place] [address] PLATELET 282 x10EE3/UL Normal 150 - 450 [facility] Comment on above: Performed By: #### 2 98961 #### [facility],[address] [place] [address] Platelet mean volume (Bld) [Entitic vol] 7.7 fL Normal 6.4 - 10.5 [facility] Comment on above: Result Comment: AUTO MATED DIFFERENTIAL Performed By: #### 2 35956 #### [place] [address] RBC 5.12 x 10EE6/UL Normal 4.50 - 6.00 [facility] Comment on above: Performed By: #### 2 02559 #### [facility],[address] [place] [address] WBC 11.0 x 10EE3/UL High 4.5 - 10.8 [facility] Comment on above: Performed By: #### 2 19852 #### [facility],[address] [place] [address] CMP with eGFRon 11-28-2024 AGE 69 years Normal [facility] Comment on above: Performed By: #### 2 68109 #### [facility],[address] [place] [address] Albumin [Mass/Vol] 3.4 g/dL Normal 3.4 - 5.0 [facility] Comment on above: Performed By: #### 2 12849 #### [facility],[address] [place] [address] Albumin/Globulin [Mass ratio] 0.9 {ratio} Normal 0.9 - 1.6 [facility] Comment on above: Performed By: #### 2 94411 #### [facility],[address] [place] [address] ALK PHOS 78 U/L Normal 46 - 116 [facility] Comment on above: Performed By: #### 2 12740 #### [facility],[address] [place] [address] ALT [Catalytic activity/Vol] 23 U/L Normal 16 - 63 [facility] Comment on above: Performed By: #### 2 21410 #### [facility],[address] [place], [place] [id number] Anion gap [Moles/Vol] 7 mmol/L Low 10 - 20 [facility] Comment on above: Performed By: #### 2 35278 #### [facility],[address] [place] [address] 70343 AST [Catalytic activity/Vol] 15 U/L Normal 15 - 37 [facility] Comment on above: Performed By: #### 2 01692 #### [facility],[address] [place] [address] 50504 B/C RATIO 18 ratio Normal 0 - 30 [facility] Comment on above: Performed By: #### 2 49977 #### [facility],[address] [place], [place] [id number] Bilirubin [Mass/Vol] 2.2 mg/dL High 0.2 - 1.0 [facility] Comment on above: Performed By: #### 2 21996 #### [facility],[address] [place] [address] Calcium [Mass/Vol] 9.2 mg/dL Normal 8.5 - 10.1 [facility] Comment on above: Performed By: #### 2 95396 #### [facility],[address] [place] [address] Chloride [Moles/Vol] 102 mmol/L Normal 98 - 107 [facility] Comment on above: Performed By: #### 2 64920 #### [facility],[address] [place] [address] CMP with eGFR Normal [facility] Comment on above: Result Comment: COMP REHENSIVE METABOLIC PANEL Performed By: #### 2 04181 #### [facility],[address] [place], [place] [id number] CO2 [Moles/Vol] 31.9 mmol/L Normal 21.0 - 32.0 [facility] Comment on above: Performed By: #### 2 16708 #### [facility],[address] [place], [place] [id number] Creatinine [Mass/Vol] 1.16 mg/dL Normal 0.70 - 1.30 [facility] Comment on above: Performed By: #### 2 03832 #### [facility],[address] [place] [address] GFR/1.73 sq M.predicted among non-blacks MDRD (S/P/Bld) [Vol rate/Area] mL/min/{1.73_m2} Normal 60 - 999 [facility] Comment on above: Performed By: #### 2 59002 #### [facility],[address] [place] [address] Result Comment: ACCO RDING TO THE NATIONAL KIDNEY DISEASE EDUCATION PROGRAM(NKDE), A NORMAL eGFR IS A VALUE GREATER THAN OR EQUAL TO 60 ML/MIN/1.73 SQ METERS. CHRONIC KIDNEY DISEASE: <60mL/MIN/1.73 SQ METERS KIDNEY FAILURE: <15mL/MIN/1.73 SQ METERS THIS TEST SHOULD ONLY BE USED FOR PATIENTS 18 YEARS OF AGE AND OLDER. Globulin (S) [Mass/Vol] 3.7 g/dL Normal 1.5 - 3.8 [facility] Comment on above: Performed By: #### 2 68638 #### [place] [address] Glucose [Mass/Vol] 115 mg/dL High 74 - 106 [facility] Comment on above: Performed By: #### 2 89178 #### [place] [id number] Potassium [Moles/Vol] 4.2 mmol/L Normal 3.5 - 5.1 [facility] Comment on above: Performed By: #### 2 16027 #### [address] [address] Protein [Mass/Vol] 7.1 g/dL Normal 6.4 - 8.2 [facility] Comment on above: Performed By: #### 2 66027 #### [address] [address] Sodium [Moles/Vol] 137 mmol/L Normal 136 - 145 [facility] [facility] Comment on above: Performed By: #### 2 43539 #### [address] [address] Urea nitrogen [Mass/Vol] 21 mg/dL High 7 - 18 [facility] Comment on above: Performed By: #### 2 51631 #### [address] [address] [address] CHEST (PE PROTOCOL)on CT CHEST (PE PROTOCOL) [address] [address] Patient: THEOMIAN BLUE Phone#: : 1955 Age: 69 Gender: M Pt. Type: ER Account: [id number] Location: [facility] Ordering: BRANDON PAZ Exam Date: 11/28/2024/12:13 Family Phys: KARENA SUGGS Charge Code: [id number] Physician: Norman Order #: [id number] Dose#: 6.9 mGy PROCEDURE: CT CHEST WITH CONTRAST FOR PE COMPARISON: None. INDICATIONS: Chest pain. TECHNIQUE: After obtaining the patient's consent, CT images were obtained with non-ionic intravenous contrast material. Multi-planar images were created to optimize visualization of vascular anatomy with MPR/MIPS and 3D imaging. All CT scans at this facility use dose modulation, iterative reconstruction, and/or weight based dosing when appropriate to reduce radiation dose to as low as reasonably achievable. IV CONTRAST: Omnipaque 350,80ml TOTAL DOSE: 6.9 CTDIvol(mGy) FINDINGS: VASCULATURE: Filling defect is present in a subsegmental branch of the right lower lobe pulmonary artery. AORTA: Normal. No aneurysm or dissection. LUNGS: Normal. No visible pulmonary disease. NESTOR: Normal. No mass or adenopathy. MEDIASTINUM: Normal. No mass or adenopathy. CARDIAC: Normal. No enlargement, pericardial thickening, or significant calcification. PLEURA: Normal. No mass or effusion. CHEST WALL: Normal. No mass or axillary adenopathy. LIMITED ABDOMEN: Normal. Limited images of the upper abdomen are unremarkable. BONES: Normal. No bony lesion or fracture. OTHER: Negative. CONCLUSION: 1. Thrombus is present in subsegmental branch of the right lower lobe pulmonary artery. 2. This report was communicated by telephone to Dr. Brandon Paz at the dictation time shown below. [address] [address] Patient: MIAN FOSS Phone#: : 1955 Age: 69 Gender: M Pt. Type: ER Account: [id number] Location: 052 Ordering: BRANDON PAZ Exam Date: 11/28/2024/12:13 Family Phys: KARENA SUGGS Charge Code: [id number] Physician: Norman Order #: [id number] Dose#: 6.9 mGy Dictated by: Maura Quispe MD on 11/28/2024 at 12:29 Approved by: Maura Quispe MD on 11/28/2024 at 12:33 Normal [facility] CV VENOUS BILATERAL LOWERon 11-28-2024 CV VENOUS BILATERAL LOWER [place] [address] Patient: RONNI FOSSY Kwaku Phone#: : 1955 Age: 69 Gender: M Pt. Type: Out Account: [id number] Location: 010 Ordering: TAYLORAP CAROLINNOMAN Exam Date: 11/28/2024/15:01 Family Phys: KARENA SUGGS Charge Code: [id number] Physician: Norman Order #: [id number] Dose#: PROCEDURE: VENOUS DOPPLER BILAT LEG COMPARISON: None. INDICATIONS: Pain TECHNIQUE: Color duplex Doppler ultrasound evaluation analysis was performed in the usual manner. CHEMISTRY SPECIALIST: SAYDA LEARY RDCS RISK FACTORS FOR VENOUS DISEASE: EXAMINATION: RIGHT +Present -Reduced o Absent LEFT SPONT PHASIC AUG REFLUX COMP SPONT PHASIC AUG REFLUX COMP + + + o + CFV + + + o + - SFJ + + + + o - FV (prox) + + + o + - FV (mid) + - FV (dist) + + + + o - POP V + + + o + + + + o - T/P TRUNK + + + o + + + + o - PTV + + + o + + + + o - PERONEAL V + + + o + o GSV + GASTROC SOLEAL V CHEMISTRY SPECIALIST'S NOTES: Right side partically compressible throughout. Thrombus in GSV extends into SFJ. FINDINGS: THROMBI: Low-level echogenic material is present in the right saphenofemoral junction, femoral vein, popliteal vein, tibioperoneal trunk, posterior tibial vein, peroneal Continued Report - Page 2 of 2 Patient: MIAN FOSS Phone#: : 1955 Age: 69 Gender: M Pt. Type: Out Account: [id number] Location: [facility] [facility] Ordering: ABIOLA STAPLETON Exam Date: 11/28/2024/15:01 Family Phys: KARENA SUGGS Charge Code: [id number] Physician: Norman Order #: [id number] Dose#: vein and greater saphenous vein. Findings are consistent with acute deep vein thrombus proximal and distal to the knee. COMPRESSIBILITY: The right saphenofemoral junction, femoral vein, popliteal vein, tibioperoneal trunk, posterior tibial vein and peroneal veins are partially compressible. The right greater saphenous vein is noncompressible. OTHER: Negative. CONCLUSION: 1. Findings consistent with acute deep vein thrombus proximal and distal to the right knee. Dictated by: Maura Quispe MD on 11/28/2024 at 16:20 Approved by: Maura Quispe MD on 11/28/2024 at 16:24 Normal [facility] D-DIMER, QUANTITATIVEon 03-0 D-DIMER QUANT 791 ng/ml High 0 - 230 [facility] Comment on above: Performed By: #### 2 14692 #### [facility],[address] [place] [address] D-DIMER, QUANTITATIVE Normal [facility] Comment on above: Result Comment: DAVID T D-DIMER Performed By: #### 2 35950 #### [facility],[address] [place] [address] NT-proBNPon 11-28-2024 Natriuretic peptide B (Bld) [Mass/Vol] 134 pg/mL High 0 - 125 [facility] Comment on above: Performed By: #### 2 41378 #### [facility],[address] [place] [address] PROTHROMBIN TIME AND INRon 0 11-28-2024 INR Coag (PPP) [Relative time] 1.1 {INR} Normal 0.8 - 1.2 [facility] Comment on above: Result Comment: T HE HEMOSIL THROMBOPLASTIN REAGENT USED IN THE PROTHROMBIN TIME TEST INTERACTS WITH THE DRUG CUBICIN (DAPTOMYCIN) AND WILL RESULT IN FALSELY ELEVATED PT / INR RESULTS INR INTERPRETATION INR INDICATION PREVENTION AND TREATMENT OF THROMBOEMBOLISM ASSOCIATED WITH: 2.0 - 3.0 ATRIAL FIBRILLATION, BIOPROSTHETIC HEART VALVES, PULMONARY EMBOLISM, VENOUS THROMBOSIS, SYSTEMIC EMBOLISM POST MYOCARDIAL INFARCTION 2.5 - 3.5 MECHANICAL HEART VALVES Performed By: #### 2 28126 #### [facility],[address] [place] [address] PROTHROMBIN TIME AND INR Normal [facility] Comment on above: Result Comment: PROT HROMBIN TIME AND INR Performed By: #### 2 53109 #### [facility],[address] [place] [address] PT-COUMADIN 13.1 sec Normal 9.3 - 14.1 [facility] Comment on above: Performed By: #### 2 62726 #### [facility],[address] [place] [address] TROPONINon 11-28-2024 HS TROPONIN 13.9 pg/mL Normal 0.0 - 76.2 [facility] Comment on above: Performed By: #### 2 76800 #### [facility],[address] [place] [address] HS TROPONIN 12.3 pg/mL Normal 0.0 - 76.2 [facility] Comment on above: Performed By: #### 2 94552 #### [facility],[address] [place] [address] TROPONIN I, HIGH SENSITIVITY on 11-28-2024 HS TROPONIN 14.7 pg/mL Normal 0.0 - 76.2 [facility] Comment on above: Performed By: #### 2 46488 #### [facility],[address] [place] [address] ALBUMIN PLASMAon 11-21-2024 Albumin [Mass/Vol] 3.8 g/dL Normal 3.4 - 5.0 [facility] Comment on above: Performed By: #### 2 31625 #### [facility],[address] [place] [address] BMP with eGFRon 11-21-2024 AGE 69 years Normal [facility] Comment on above: Performed By: #### 2 67496 #### [facility],[address] [place] [address] Anion gap [Moles/Vol] 13 mmol/L Normal 10 - 20 [facility] Comment on above: Performed By: #### 2 98495 #### [facility],[address] [place] [address] 53385 BMP with eGFR Normal [facility] Comment on above: Result Comment: BASI C METABOLIC PANEL Performed By: #### 2 14532 #### [facility],[address] [place] [address] Calcium [Mass/Vol] 9.1 mg/dL Normal 8.5 - 10.1 [facility] Comment on above: Performed By: #### 2 36663 #### [facility],[address] [place] [address] Chloride [Moles/Vol] 105 mmol/L Normal 98 - 107 [facility] Comment on above: Performed By: #### 2 78607 #### [facility],[address] [place] [address] CO2 [Moles/Vol] 27.2 mmol/L Normal 21.0 - 32.0 [facility] Comment on above: Performed By: #### 2 39585 #### [facility],[address] [place] [address] Creatinine [Mass/Vol] 1.10 mg/dL Normal 0.70 - 1.30 [facility] Comment on above: Performed By: #### 2 32059 #### [facility],[address] [place] [address] GFR/1.73 sq M.predicted among non-blacks MDRD (S/P/Bld) [Vol rate/Area] mL/min/{1.73_m2} Normal 60 - 999 [facility] Comment on above: Performed By: #### 2 60303 #### [facility],[address] [place] [address] Result Comment: ACCO RDING TO THE NATIONAL KIDNEY DISEASE EDUCATION PROGRAM(NKDE), A NORMAL eGFR IS A VALUE GREATER THAN OR EQUAL TO 60 ML/MIN/1.73 SQ METERS. CHRONIC KIDNEY DISEASE: <60mL/MIN/1.73 SQ METERS KIDNEY FAILURE: <15mL/MIN/1.73 SQ METERS THIS TEST SHOULD ONLY BE USED FOR PATIENTS 18 YEARS OF AGE AND OLDER. Glucose [Mass/Vol] 98 mg/dL Normal 74 - 106 [facility] Comment on above: Performed By: #### 2 06887 #### [facility],[address] [place] [address] Potassium [Moles/Vol] 3.6 mmol/L Normal 3.5 - 5.1 [facility] Comment on above: Performed By: #### 2 04252 #### [facility],[address] [place] [address] Sodium [Moles/Vol] 142 mmol/L Normal 136 - 145 [facility] Comment on above: Performed By: #### 2 44472 #### [facility],[address] [place] [address] Urea nitrogen [Mass/Vol] 20 mg/dL High 7 - 18 [facility] Comment on above: Performed By: #### 2 24363 #### [facility],[address] [place] [address] CBC + DIFFon 11-21-2024 Baso # 0.03 x10EE3/UL Normal 0.00 - 0.10 [facility] Comment on above: Performed By: #### 2 32654 #### [facility],[address] [place], [place] [id number] Basophils/100 WBC (Bld) 0.4 % Normal 0.0 - 2.0 [facility] Comment on above: Performed By: #### 2 61245 #### [facility],[address] [place] [address] CBC + DIFF Normal [facility] Comment on above: Result Comment: CBC- COMPLETE BLOOD COUNT Performed By: #### 2 24199 #### [facility],[address] [place] [address] EO # 0.04 x10EE3/UL Normal 0.00 - 0.50 [facility] Comment on above: Performed By: #### 2 33210 #### [place] [address] Eosinophils/100 WBC (Bld) 0.5 % Normal 0.0 - 7.0 [facility] Comment on above: Performed By: #### 2 05387 #### [facility],[address] [place] [address] Erythrocyte distribution width (RBC) [Ratio] 14.2 % Normal 12.0 - 15.6 [facility] Comment on above: Performed By: #### 2 59177 #### [facility],[address] [place] [address] Hematocrit (Bld) [Volume fraction] 49.3 % Normal 40.0 - 52.0 [facility] Comment on above: Performed By: #### 2 29989 #### [facility],[address] [place] [address] Hemoglobin (Bld) [Mass/Vol] 16.6 g/dL Normal 13.0 - 17.5 [facility] Comment on above: Performed By: #### 2 50408 #### [facility],[address],[place] [address] Lymph # 1.88 x10EE3/UL Normal 0.80 - 2.80 [facility] Comment on above: Performed By: #### 2 85737 #### [facility],[address] [place] [address] Lymphocytes/100 WBC (Bld) 25.6 % Normal 20.0 - 45.0 [facility] Comment on above: Performed By: #### 2 66122 #### [facility],[address] [place] [address] MANUAL DIFF N/A Normal [facility] Comment on above: Performed By: #### 2 94718 #### [place] [address] MCH (RBC) [Entitic mass] 32 pg Normal 27 - 33 [facility] Comment on above: Performed By: #### 2 20964 #### [place] [address] MCHC 34 X10 3 Normal 32 - 36 [facility] Comment on above: Performed By: #### 2 38742 #### [place] [address] MCV (RBC) [Entitic vol] 94 fL Normal 81 - 98 [facility] Comment on above: Performed By: #### 2 35434 #### [facility],[address] [place] [address] [place] # 0.51 x10EE3/UL Normal 0.20 - 1.00 [facility] Comment on above: Performed By: #### 2 00800 #### [place] [address] MONOS % 7.0 % Normal 0.0 - 10.0 [facility] Comment on above: Performed By: #### 2 16840 #### [facility],[address] [place], [place] [id number] Morphology Félix (Bld) [Interp] N/A Normal [facility] Comment on above: Performed By: #### 2 42624 #### [address] [address] Neut # 4.87 x10EE3/UL Normal 1.50 - 7.10 [facility] Comment on above: Performed By: #### 2 06789 #### [address] [address] Neutrophils/100 WBC (Bld) 66.5 % Normal 46.0 - 76.0 [facility] Comment on above: Performed By: #### 2 22899 #### [address] [address] PLATELET 309 x10EE3/UL Normal 150 - 450 [facility] Comment on above: Performed By: #### 2 17810 #### [address] [address] Platelet mean volume (Bld) [Entitic vol] 8.4 fL Normal 6.4 - 10.5 [facility] Comment on above: Result Comment: AUTO MATED DIFFERENTIAL Performed By: #### 2 88021 #### [address] [address] RBC 5.22 x 10EE6/UL Normal 4.50 - 6.00 [facility] Comment on above: Performed By: #### 2 15570 #### [address] [address] WBC 7.3 x 10EE3/UL Normal 4.5 - 10.8 [facility] Comment on above: Performed By: #### 2 51463 #### [address] [address] CHEST 2 VIEWSon 11-21-2024 CHEST 2 VIEWS [place] [address] Patient: MIAN FOSS Phone#: : 1955 Age: 69 Gender: M Pt. Type: Out Account: [id number] Location: 052 Ordering: KRISTA KRISHNAMURTHY Exam Date: 11/21/2024/9:43 Family Phys: KARENA SUGGS Charge Code: [id number] Physician: Norman Order #: [id number] Dose#: PROCEDURE: X-RAY CHEST 2 VIEWS COMPARISON: None. INDICATIONS: Preoperative. FINDINGS: LUNGS: Normal. No significant pulmonary parenchymal abnormalities. VASCULATURE: Normal. Unremarkable pulmonary vasculature. CARDIAC: Normal. No cardiac silhouette abnormality or cardiomegaly. MEDIASTINUM: Normal. No visible mass or adenopathy. PLEURA: Normal. No effusion or pleural thickening. BONES: Degenerative changes of the spine OTHER: Negative. CONCLUSION: No acute disease. Dictated by: Luana Layne MD on 11/21/2024 at 13:31 Approved by: Luana Layne MD on 11/21/2024 at 13:33 Normal [facility] URINALYSISon 10-27-2024 Bilirubin Ql (U) Negative Normal NORMAL: NEGATIVE [facility] Comment on above: Performed By: #### 2 02390 #### [facility],[address] [place] [address] Clarity (U) clear Normal NORMAL: CLEAR [facility] Comment on above: Performed By: #### 2 67205 #### [facility],[address] [place] [address] Color (U) yellow Normal NORMAL: YELLOW [facility] Comment on above: Performed By: #### 2 85779 #### [facility],[address] [place] [address] Glucose Ql (U) NORM Normal NORMAL: NORMAL [facility] Comment on above: Performed By: #### 2 32614 #### [facility],[address] [place] [address] Hemoglobin Ql (U) Negative Normal NORMAL: NEGATIVE [facility] Comment on above: Performed By: #### 2 39868 #### [facility],[address] [place] [address] 38005 Ketone Negative Normal NORMAL: NEGATIVE [facility] Comment on above: Performed By: #### 2 86132 #### [facility],[address] [place] [address] 17318 Leukocytes Negative Normal NORMAL: NEGATIVE [facility] Comment on above: Performed By: #### 2 71109 #### [facility],[address] [place] [address]133 Nitrite Ql (U) Negative Normal NORMAL: NEGATIVE [facility] Comment on above: Performed By: #### 2 68780 #### [facility],[address] [place] [address] pH (U) 6 [pH] Normal NORMAL: 5.0-8.0 [facility] Comment on above: Performed By: #### 2 82223 #### [facility],[address] [place], [place] [id number] Protein Ql (U) Negative Normal NORMAL: NEGATIVE [facility] Comment on above: Performed By: #### 2 32279 #### [facility],[address] [place], [place] [id number] Sp [place] 1.015 Normal NORMAL: 1.010-1.030 [facility] Comment on above: Performed By: #### 2 70083 #### [facility],[address] [place], [place] [id number] Specimen Type UNSPECIFIED Normal [facility] Comment on above: Performed By: #### 2 54308 #### [facility],[address] [place] [address] Urinalysis dipstick W Reflex Microscopic panel (U) NOT INDICATED Normal [facility] Comment on above: Performed By: #### 2 47547 #### [facility],[address] [place] [address] Urobilinog NORM Normal NORMAL: NORMAL [facility] Comment on above: Performed By: #### 2 17290 #### [facility],[address] [place] [address] CBC + DIFFon 10-26-2024 Baso # 0.03 x10EE3/UL Normal 0.00 - 0.10 [facility] Comment on above: Performed By: #### 2 95774 #### [facility],[address] [place] [address] Basophils/100 WBC (Bld) 0.4 % Normal 0.0 - 2.0 [facility] Comment on above: Performed By: #### 2 57514 #### [facility],[address] [place] [address] CBC + DIFF Normal [facility] Comment on above: Result Comment: CBC- COMPLETE BLOOD COUNT Performed By: #### 2 60225 #### [facility],[address] [place] [address] EO # 0.06 x10EE3/UL Normal 0.00 - 0.50 [facility] Comment on above: Performed By: #### 2 28613 #### [facility],[address] [place] [address] Eosinophils/100 WBC (Bld) 0.9 % Normal 0.0 - 7.0 [facility] Comment on above: Performed By: #### 2 50395 #### [facility],[address] [place] [address] 34516 Erythrocyte distribution width (RBC) [Ratio] 13.6 % Normal 12.0 - 15.6 [facility] Comment on above: Performed By: #### 2 68164 #### [facility],[address] [place] [address] 29047 Hematocrit (Bld) [Volume fraction] 47.6 % Normal 40.0 - 52.0 [facility] Comment on above: Performed By: #### 2 03964 #### [facility],[address] [place] [address] 48873 Hemoglobin (Bld) [Mass/Vol] 16.1 g/dL Normal 13.0 - 17.5 [facility] Comment on above: Performed By: #### 2 05733 #### [facility],[address] [place] [address] Lymph # 1.95 x10EE3/UL Normal 0.80 - 2.80 [facility] Comment on above: Performed By: #### 2 81229 #### [facility],[address] [place] [address] Lymphocytes/100 WBC (Bld) 28.0 % Normal 20.0 - 45.0 [facility] Comment on above: Performed By: #### 2 34194 #### [facility],[address] [place] [address] MANUAL DIFF N/A Normal [facility] Comment on above: Performed By: #### 2 22621 #### [facility],[address] [place] [address] MCH (RBC) [Entitic mass] 32 pg Normal 27 - 33 [facility] Comment on above: Performed By: #### 2 93590 #### [facility],[address] [place] [address] MCHC 34 X10 3 Normal 32 - 36 [facility] Comment on above: Performed By: #### 2 80232 #### [facility],[address] [place], [place] [address] MCV (RBC) [Entitic vol] 93 fL Normal 81 - 98 [facility] Comment on above: Performed By: #### 2 98562 #### [facility],[address] [place] [address] [place] # 0.45 x10EE3/UL Normal 0.20 - 1.00 [facility] Comment on above: Performed By: #### 2 48658 #### [facility],[address],[place] [address] MONOS % 6.5 % Normal 0.0 - 10.0 [facility] Comment on above: Performed By: #### 2 64460 #### [facility],[address] [place] [address] Morphology Félix (Bld) [Interp] N/A Normal [facility] Comment on above: Performed By: #### 2 11938 #### [facility],[address] [place] [address] 14210 Neut # 4.48 x10EE3/UL Normal 1.50 - 7.10 [facility] Comment on above: Performed By: #### 2 62936 #### [facility],[address] [place] [address] 46966 Neutrophils/100 WBC (Bld) 64.2 % Normal 46.0 - 76.0 [facility] Comment on above: Performed By: #### 2 63344 #### [facility],[address] [place] [address]015 PLATELET 318 x10EE3/UL Normal 150 - 450 [facility] Comment on above: Performed By: #### 2 39403 #### [facility],[address] [place] [address] 63623 Platelet mean volume (Bld) [Entitic vol] 8.3 fL Normal 6.4 - 10.5 [facility] Comment on above: Result Comment: AUTO MATED DIFFERENTIAL Performed By: #### 2 02250 #### [facility],[address] [place] [address] 38459 RBC 5.12 x 10EE6/UL Normal 4.50 - 6.00 [facility] Comment on above: Performed By: #### 2 09494 #### [facility],[address] [place] [address] 19274 WBC 7.0 x 10EE3/UL Normal 4.5 - 10.8 [facility] Comment on above: Performed By: #### 2 35923 #### [facility],[address] [place] [address] 55426 CMP with eGFRon 10-26-2024 AGE 69 years Normal [facility] Comment on above: Performed By: #### 2 45616 #### [facility],[address] [place] [address] 99890 Albumin [Mass/Vol] 3.6 g/dL Normal 3.4 - 5.0 [facility] Comment on above: Performed By: #### 2 14497 #### [facility],[address] [place] [address]249 Albumin/Globulin [Mass ratio] 1.2 {ratio} Normal 0.9 - 1.6 [facility] Comment on above: Performed By: #### 2 40105 #### [facility],[address] [place] [address] 60476 ALK PHOS 74 U/L Normal 46 - 116 [facility] Comment on above: Performed By: #### 2 97387 #### [facility],[address] [place] [address] 99978 ALT [Catalytic activity/Vol] 26 U/L Normal 16 - 63 [facility] Comment on above: Performed By: #### 2 04135 #### [facility],[address] [place] [address] 98085 Anion gap [Moles/Vol] 10 mmol/L Normal 10 - 20 [facility] Comment on above: Performed By: #### 2 67930 #### [facility],[address] [place] [address] 12580 AST [Catalytic activity/Vol] 29 U/L Normal 15 - 37 [facility] Comment on above: Performed By: #### 2 87255 #### [facility],[address] [place] [address]3957 B/C RATIO 22 ratio Normal 0 - 30 [facility] [facility] Comment on above: Performed By: #### 2 51551 #### [facility],[address] [place] [address] 23806 Bilirubin [Mass/Vol] 1.3 mg/dL High 0.2 - 1.0 [facility] Comment on above: Performed By: #### 2 60806 #### [facility],[address] [place] [address] 10946 Calcium [Mass/Vol] 9.1 mg/dL Normal 8.5 - 10.1 [facility] Comment on above: Performed By: #### 2 95702 #### [facility],[address] [place] [address] 84870 Chloride [Moles/Vol] 107 mmol/L Normal 98 - 107 [facility] Comment on above: Performed By: #### 2 91232 #### [facility],[address] [place] [address] 01907 CMP with eGFR Normal [facility] Comment on above: Result Comment: COMP REHENSIVE METABOLIC PANEL Performed By: #### 2 96425 #### [facility],[address] [place] [address] 33004 CO2 [Moles/Vol] 29.7 mmol/L Normal 21.0 - 32.0 [facility] Comment on above: Performed By: #### 2 53356 #### [facility],[address] [place] [address] 97265 Creatinine [Mass/Vol] 1.00 mg/dL Normal 0.70 - 1.30 [facility] Comment on above: Performed By: #### 2 73557 #### [facility],[address] [place] [address] 60503 GFR/1.73 sq M.predicted among non-blacks MDRD (S/P/Bld) [Vol rate/Area] mL/min/{1.73_m2} Normal 60 - 999 [facility] Comment on above: Performed By: #### 2 34647 #### [facility],[address] [place] [address] 12928 Result Comment: ACCO RDING TO THE NATIONAL KIDNEY DISEASE EDUCATION PROGRAM(NKDE), A NORMAL eGFR IS A VALUE GREATER THAN OR EQUAL TO 60 ML/MIN/1.73 SQ METERS. CHRONIC KIDNEY DISEASE: <60mL/MIN/1.73 SQ METERS KIDNEY FAILURE: <15mL/MIN/1.73 SQ METERS THIS TEST SHOULD ONLY BE USED FOR PATIENTS 18 YEARS OF AGE AND OLDER. Globulin (S) [Mass/Vol] 3.1 g/dL Normal 1.5 - 3.8 [facility] Comment on above: Performed By: #### 2 23255 #### [facility],[address] [place] [address] 66171 Glucose [Mass/Vol] 97 mg/dL Normal 74 - 106 [facility] Comment on above: Performed By: #### 2 18479 #### [address] [address] Potassium [Moles/Vol] 4.5 mmol/L Normal 3.5 - 5.1 [facility] Comment on above: Performed By: #### 2 77855 #### [address] [address] Protein [Mass/Vol] 6.7 g/dL Normal 6.4 - 8.2 [facility] Comment on above: Performed By: #### 2 38173 #### [address] [address]84 Sodium [Moles/Vol] 142 mmol/L Normal 136 - 145 [facility] Comment on above: Performed By: #### 2 77603 #### [address] [address] Urea nitrogen [Mass/Vol] 22 mg/dL High 7 - 18 [facility] Comment on above: Performed By: #### 2 69178 #### [facility],[address] [place] [address] 64032 HIP BILAT 2+ VIEWS W/AP PELV [place] 10-26-2024 HIP BILAT 2+ VIEWS W/AP PELVIS [place] [address] Patient: MIAN FOSS Phone#: : 1955 Age: 69 Gender: M Pt. Type: Out Account: [id number] Location: [facility] Ordering: KARENA SUGGS Exam Date: 10/26/2024/10:38 Family Phys: Charge Code: [id number] Physician: Norman Order #: [id number] Dose#: PROCEDURE: X-RAY HIP BILAT MIN 2 VIEWS W/AP PELVIS COMPARISON: None. INDICATIONS: Bilateral hip pain. 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 The superior joint spaces are completely obliterated. There is flattening of the head of the right femur. Subcortical cysts are present. Bony hypertrophy is present at the acetabulum. SOFT TISSUES: Negative. No visible soft tissue swelling. EFFUSION: None visible. OTHER: Negative. CONCLUSION: 1. 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 Dictated by: Maura Quispe MD on 10/26/2024 at 12:22 Approved by: Maura Quispe MD on 10/26/2024 at 12:23 Normal [facility] LIPID PROFILEon 10-26-2024 Cholesterol [Mass/Vol] 148 mg/dL Normal 0 - 240 [facility] Comment on above: Performed By: #### 2 25707 #### [facility],[address] [place] [address] 64304 Cholesterol in HDL [Mass/Vol] 41 mg/dL Normal 40 - 60 [facility] Comment on above: Performed By: #### 2 59643 #### [address] [address] Cholesterol in LDL [Mass/Vol] 91 mg/dL Normal 0 - 129 [facility] Comment on above: Performed By: #### 2 31975 #### [facility],[address] [place] [address] 11188 Cholesterol.total/Cho lesterol in HDL [Mass ratio] 3.6 {ratio} Normal 0.0 - 5.0 [facility] Comment on above: Performed By: #### 2 91017 #### [facility],[address] [place] [address] 37045 Lipid 1996 panel Normal [facility] Comment on above: Result Comment: LIPI D PROFILE Performed By: #### 2 54692 #### [facility],[address] [place] [address] 79046 Triglyceride [Mass/Vol] 82 mg/dL Normal 0 - 150 [facility] Comment on above: Performed By: #### 2 06236 #### [facility],[address] [place] [address] 32330 LUMBO SACRAL COMPLETE MIN 4 VIEWSon 10-26-2024 LUMBO SACRAL COMPLETE MIN 4 VIEWS [place] [address] Patient: MIAN FOSS Phone#: : 1955 Age: 69 Gender: M Pt. Type: Out Account: [id number] Location: [facility] Ordering: KARENA SUGGS Exam Date: 10/26/2024/10:48 Family Phys: Charge Code: [id number] Physician: Norman Order #: [id number] Dose#: PROCEDURE: X-RAY LUMBAR SPINE COMPLETE MIN 4 VIEWS COMPARISON: None. INDICATIONS: Chronic midline low back pain with sciatica. FINDINGS: BONES: Moderate degenerative changes of the spine are present. There is a large lateral osteophyte at the left L2-3 level. There is sclerosis at the SI joints bilaterally. There is no evidence acute fracture or subluxation. DISC SPACES: Disc space narrowing is present at the L5-S1 level. PARASPINOUS: Negative. No paraspinous abnormality is seen. OTHER: Negative. CONCLUSION: 1. Moderate degenerative changes of the spine are present. Dictated by: Maura Quispe MD on 10/26/2024 at 12:23 Approved by: Maura Quispe MD on 10/26/2024 at 12:24 Normal [facility] CBC + DIFFon 09-20-2024 Baso # 0.04 x10EE3/UL Normal 0.00 - 0.10 [facility] Comment on above: Performed By: #### 2 96787 #### [facility],[address] [place] [address] 29749 Basophils/100 WBC (Bld) 0.3 % Normal 0.0 - 2.0 [facility] Comment on above: Performed By: #### 2 35813 #### [facility],[address] [place] [address] 55597 CBC + DIFF Normal [facility] Comment on above: Result Comment: CBC- COMPLETE BLOOD COUNT Performed By: #### 2 34026 #### [facility],[address] [place] [address] 43271 EO # 0.02 x10EE3/UL Normal 0.00 - 0.50 [facility] Comment on above: Performed By: #### 2 22289 #### [facility],[address] [place] [address] 33362 Eosinophils/100 WBC (Bld) 0.2 % Normal 0.0 - 7.0 [facility] Comment on above: Performed By: #### 2 64628 #### [facility],[address] [place] [address] 23948 Erythrocyte distribution width (RBC) [Ratio] 13.8 % Normal 12.0 - 15.6 [facility] Comment on above: Performed By: #### 2 22039 #### [facility],[address] [place] [address] 02425 Hematocrit (Bld) [Volume fraction] 51.4 % Normal 40.0 - 52.0 [facility] Comment on above: Performed By: #### 2 87681 #### [facility],[address] [place] [address] 73898 Hemoglobin (Bld) [Mass/Vol] 17.6 g/dL High 13.0 - 17.5 [facility] Comment on above: Performed By: #### 2 63297 #### [facility],[address] [place] [address] Lymph # 1.03 x10EE3/UL Normal 0.80 - 2.80 [facility] Comment on above: Performed By: #### 2 76182 #### [facility],[address] [place] [address] Lymphocytes/100 WBC (Bld) 9.5 % Low 20.0 - 45.0 [facility] Comment on above: Performed By: #### 2 03373 #### [facility],[address] [place] [address] MANUAL DIFF N/A Normal [facility] Comment on above: Performed By: #### 2 11530 #### [facility],[address] [place] [address] MCH (RBC) [Entitic mass] 32 pg Normal 27 - 33 [facility] Comment on above: Performed By: #### 2 58578 #### [place] [address] MCHC 34 X10 3 Normal 32 - 36 [facility] Comment on above: Performed By: #### 2 51634 #### [place] [address] MCV (RBC) [Entitic vol] 95 fL Normal 81 - 98 [facility] Comment on above: Performed By: #### 2 48345 #### [place] [address] [place] # 0.62 x10EE3/UL Normal 0.20 - 1.00 [facility] Comment on above: Performed By: #### 2 89219 #### [facility],[address] [place] [address] MONOS % 5.7 % Normal 0.0 - 10.0 [facility] Comment on above: Performed By: #### 2 84275 #### [facility],[address] [place] [address] 10597 Morphology Félix (Bld) [Interp] N/A Normal [facility] Comment on above: Performed By: #### 2 45853 #### [facility],[address] [place] [address] Neut # 9.20 x10EE3/UL High 1.50 - 7.10 [facility] Comment on above: Performed By: #### 2 88016 #### [place] [id number] Neutrophils/100 WBC (Bld) 84.4 % High 46.0 - 76.0 [facility] Comment on above: Performed By: #### 2 46340 #### [facility],[address] [place], [place] [id number] PLATELET 326 x10EE3/UL Normal 150 - 450 [facility] Comment on above: Performed By: #### 2 68155 #### [place] [address] Platelet mean volume (Bld) [Entitic vol] 7.5 fL Normal 6.4 - 10.5 [facility] Comment on above: Result Comment: AUTO MATED DIFFERENTIAL Performed By: #### 2 05877 #### [facility],[address] [place] [address] 69710 RBC 5.44 x 10EE6/UL Normal 4.50 - 6.00 [facility] Comment on above: Performed By: #### 2 06740 #### [facility],[address] [place], [place] [id number] WBC 10.9 x 10EE3/UL High 4.5 - 10.8 [facility] Comment on above: Performed By: #### 2 86330 #### [facility],[address] [place], [place] [id number] CMP with eGFRon 09-20-2024 AGE 69 years Normal [facility] Comment on above: Performed By: #### 2 94341 #### [facility],[address] [place] [address] 07844 Albumin [Mass/Vol] 3.7 g/dL Normal 3.4 - 5.0 [facility] Comment on above: Performed By: #### 2 45450 #### [facility],[address] [place] [address] Albumin/Globulin [Mass ratio] 1.0 {ratio} Normal 0.9 - 1.6 [facility] Comment on above: Performed By: #### 2 65828 #### [facility],[address] [place] [address] 26900 ALK PHOS 71 U/L Normal 46 - 116 [facility] Comment on above: Performed By: #### 2 84545 #### [facility],[address] [place] [address] 12859 ALT [Catalytic activity/Vol] 23 U/L Normal 16 - 63 [facility] Comment on above: Performed By: #### 2 92886 #### [facility],[address] [place], [place] [id number] Anion gap [Moles/Vol] 15 mmol/L Normal 10 - 20 [facility] Comment on above: Performed By: #### 2 09206 #### [facility],[address] [place] [address] 26260 AST [Catalytic activity/Vol] 16 U/L Normal 15 - 37 [facility] Comment on above: Performed By: #### 2 49342 #### [facility],[address] [place] [address] 33334 B/C RATIO 15 ratio Normal 0 - 30 [facility] Comment on above: Performed By: #### 2 03260 #### [facility],[address] [place] [address] 77485 Bilirubin [Mass/Vol] 3.1 mg/dL High 0.2 - 1.0 [facility] Comment on above: Performed By: #### 2 22964 #### [facility],[address] [place] [address] 20676 Calcium [Mass/Vol] 9.3 mg/dL Normal 8.5 - 10.1 [facility] Comment on above: Performed By: #### 2 42429 #### [facility],[address] [place] [address] 97812 Chloride [Moles/Vol] 106 mmol/L Normal 98 - 107 [facility] Comment on above: Performed By: #### 2 81439 #### [facility],[address] [place] [address] 54923 CMP with eGFR Normal [facility] Comment on above: Result Comment: COMP REHENSIVE METABOLIC PANEL Performed By: #### 2 45611 #### [facility],[address] [place] [address] 26253 CO2 [Moles/Vol] 27.6 mmol/L Normal 21.0 - 32.0 [facility] Comment on above: Performed By: #### 2 89414 #### [facility],[address] [place] [address] 05740 Creatinine [Mass/Vol] 1.55 mg/dL High 0.70 - 1.30 [facility] Comment on above: Performed By: #### 2 70438 #### [facility],[address] [place] [address] 86625 eGFR 45 ML/MINUTE Low 60 - 999 [facility] Comment on above: Performed By: #### 2 47510 #### [facility],[address] [place] [address] 07366 eGFR(AA) 54 ML/MINUTE Low 60 - 999 [facility] Comment on above: Result Comment: ACCO RDING TO THE NATIONAL KIDNEY DISEASE EDUCATION PROGRAM(NKDE), A NORMAL eGFR IS A VALUE GREATER THAN OR EQUAL TO 60 ML/MIN/1.73 SQ METERS. CHRONIC KIDNEY DISEASE: <60mL/MIN/1.73 SQ METERS KIDNEY FAILURE: <15mL/MIN/1.73 SQ METERS THIS TEST SHOULD ONLY BE USED FOR PATIENTS 18 YEARS OF AGE AND OLDER. Performed By: #### 2 60452 #### [address] [address] Globulin (S) [Mass/Vol] 3.6 g/dL Normal 1.5 - 3.8 [facility] Comment on above: Performed By: #### 2 51640 #### [address] [address] Glucose [Mass/Vol] 118 mg/dL High 74 - 106 [facility] Comment on above: Performed By: #### 2 10524 #### [address] [address] Potassium [Moles/Vol] 4.0 mmol/L Normal 3.5 - 5.1 [facility] Comment on above: Performed By: #### 2 43259 #### [address] [address] Protein [Mass/Vol] 7.3 g/dL Normal 6.4 - 8.2 [facility] Comment on above: Performed By: #### 2 25079 #### [address] [address] Sodium [Moles/Vol] 145 mmol/L Normal 136 - 145 [facility] Comment on above: Performed By: #### 2 50573 #### [address] [address] Urea nitrogen [Mass/Vol] 23 mg/dL High 7 - 18 [facility] Comment on above: Performed By: #### 2 97907 #### [address] [address] [address] ABDOMEN/PELVIS [facility] 2023 CT ABDOMEN/PELVIS [place] [address] [place], [place] [address] Patient: MIAN FOSS Phone#: : 1955 Age: 69 Gender: M Pt. Type: ER Account: [id number] Location: 052 Ordering: STEFANO IQBAL Exam Date: 09/20/2024/12:35 Family Phys: NUPUR FERNANDEZ Charge Code: [id number] Physician: Norman Order #: [id number] Dose#: [id number] PROCEDURE: CT ABDOMEN/PELVIS WITH CONTRAST COMPARISON: None. INDICATIONS: Abdominal pain. TECHNIQUE: After obtaining the patient's consent, CT images were created with non-ionic intravenous contrast material. All CT scans at this facility use dose modulation, iterative reconstruction, and/or weight based dosing when appropriate to reduce radiation dose to as low as reasonably achievable. IV CONTRAST: Visipaque 320,80ml TOTAL DOSE: 13.80 CTDIvol(mGy) FINDINGS: LIVER: There is a cyst in the caudate measuring 1.5 x 1.5 cm. No enlargement, atrophy, or significant focal lesion. BILIARY: Gallbladder is present. PANCREAS: Normal. No lesion, fluid collection, ductal dilatation, or atrophy. SPLEEN: Normal. No enlargement or focal lesion. KIDNEYS: Kidneys enhance and excrete contrast symmetrically. No hydronephrosis. ADRENALS: Normal. No mass or enlargement. AORTA/VASCULAR: No aortic aneurysm. Accessory bilateral renal arteries. Circumaortic left renal vein. RETROPERITONEUM: Normal. No mass or adenopathy. BOWEL/MESENTERY: The small bowel is fluid-filled and dilated measuring up to 3.2 cm. The segment of small bowel in the right mid abdomen demonstrates wall thickening, series 2, image 44. No discrete transition point. The colon is fluid filled from the cecum to the rectum. There is diverticulosis of the sigmoid and descending colon. The appendix is not visualized. ABDOMINAL WALL: Left inguinal hernia containing fat and portion of the urinary bladder, series 2, image 76 and series 5, image 44. URINARY BLADDER: Urinary bladder is partially filled. Portions of the left urinary bladder prolapses into left inguinal hernia. Continued Report - Page 2 of 2 Patient: MIAN FOSS Phone#: : 1955 Age: 69 Gender: M Pt. Type: ER Account: [id number] Location: 2 Ordering: STEFANO IQBAL Exam Date: 09/20/2024/12:35 Family Phys: NUPUR FERNANDEZ Charge Code: [id number] Physician: Norman Order #: [id number] Dose#: [id number] PELVIC NODES: Normal. No adenopathy. PELVIC ORGANS: The prostate is enlarged measuring 5.0 x 4.3 by 5.8 cm. BONES: Spurring of the sacroiliac joints. Degenerative changes of the hips disc height loss at L5-S1. 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 Partially calcified loose body adjacent to the inferior right hip, measuring 1.7 x 1.9 cm. Bilateral hip joint space loss, subchondral cysts and spurring. LUNG BASES: Normal. No visible pulmonary or pleural disease. OTHER: Negative. CONCLUSION: 1. Small bowel in the right mid abdomen with wall thickening concerning for ileitis. There is proximal fluid-filled loops of small bowel without transition point. 2. Left inguinal hernia containing fat and portion of the urinary bladder 3. 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 - 11:17 Ezra Given (NOW x1) Maria Isabel Stanley 11:16 09/20/2024 Ezra Stanley R.N. Scanned IV NS 0.9 % 1000 13:03 09/20 IV NS 0.9 % 1000 mL started in bag#1 1000 mL at Started mL at 999 mL/hr 999 mL/hr via Site# 1. - 13:03 Ezra Stanley R.N. 13:03 09/20/2024 (NOW x1) Ezra Stanley R.N. 13:39 09/20 Medication Discontinued: IV completed. Total amount Stopped infused: 1000 mL. IV patency established. IV site checked: no pain, 13:39 09/20/2024 redness, or swelling. IV flushed thoroughly post-medication Ezra Stanley R.N. administration. - 13:39 Ezra Stanley R.N. Scanned 1 of 1 Normal [facility] ED NURSES CLINICAL NOTEon ED NURSES CLINICAL NOTE Nurse Narrative Nurse Clinical Narrative [address] [place] [address] [id number] 09/20/2024 Patient: MIAN FOSS Sex: Male : 1955 Age: 69y Disposition: Discharge to Home Disposition Decision Time: 13:23 09/20/2024 Departure Time: 13:40 09/20/2024 TRIAGE Arrived by private vehicle. Historian: patient and family. Accompanied by family. Primary physician (NONE). Triage time: 10:35 09/20/2024. Acuity: LEVEL 3. Chief Complaint: ABDOMINAL PAIN and DIARRHEA and (states bowels are hanging out). Alert. No acute distress. Onset. (weeks). The patient has had vomiting, diarrhea and abdominal pain. SEPSIS SCREEN: NEGATIVE. SIRS criteria negative. SEVERE SEPSIS SCREEN NEGATIVE. No signs of organ dysfunction present. -- 10:39 09/20/24 BRIAN Ba R.N. 10:37 09/20/24. BP: 175/104 MAP: 128. HR: 116. RR: 17. O2 saturation: 94% Temperature: 97.7 F. Pain level now 9/10. -- 10:38 09/20/24 BRIAN Ba R.N. Measurements: 10:39 09/20/24 Wt: 77.1 kg, Ht/Uriel: 72.0 in, BMI: 23.06 -- 10:39 09/20/24 BRIAN Ba R.N. Medications: no known home medications -- 10:36 09/20/24 BRIAN Ba R.N. 1 of 4 Nurse Narrative Allergies: no known drug allergies -- 10:36 09/20/24 BRIAN Ba R.N. Problems: no known problem -- 10:36 09/20/24 BRIAN Ba R.N. 10:35 09/20/24. Preferred pharmacy: [facility]. -- 10:39 09/20/24 BRIAN Ba R.N. ADDITIONAL SURGERIES: Hernia Repair -- 10:36 09/20/24 BRIAN Ba R.N. History 10:35 09/20/24. PAST MEDICAL HX: Immunizations: up-to-date. SOCIAL HX: Never smoker. No alcohol use or drug use. No recent travel. No known contact with a sick individual. The patient has not traveled outside the [place] Infectious disease exposure: No infectious disease exposure. ABUSE ASSESSMENT: Abuse denied. No suspicion of abuse. SELF HARM ASSESSMENT: Self harm assessment was performed. The patient answered no to the question(s) Have you recently felt down, depressed, or hopeless? and Do you have thoughts of harming or killing yourself?. FALL RISK ASSESSMENT: Fall risk assessment completed. Risk factors identified include patient age greater than 65 years. -- 10:39 09/20/24 BRIAN Ba R.N. Interventions 2 of 4 Nurse Narrative 10:35 09/20/24. Identification band on patient. To treatment room. Advanced care plan. Patient does not have advanced directive. -- 10:39 09/20/24 BRIAN Ba R.N. PHYSICAL ASSESSMENT 11:18 09/20/24. Ambulatory to room. GENERAL / NEURO / PSYCH: Alert. Oriented X 4. Appears in no acute distress. HEENT: Mucous membranes are pink. RESPIRATORY: Respirations not labored. Breath sounds within normal limits. CVS: Capillary refill less than 2 seconds. GI / : The patient has had intermittent episodes of nausea. Emesis noted. Has vomited once. Abdominal tenderness in the periumbilical area. Bowel sounds within normal limits. SKIN: Skin is warm and dry. -- 11:18 09/20/24 BRIAN Stanley R.N. NURSING PROGRESS NOTES 10:37 09/20/24. ED physician at the patient's bedside. -- 10:37 09/20/24 BRIAN Ford R.N.Charted on wrong patient -- 10:39 09/20/24 BRIAN Ford R.N. 11:16 09/20/24. Zofran IVP 4 mg given via Site# 1. -- 11:17 09/20/24 BRIAN Stanley R.N. 11:17 09/20/24. Site #1 started via IV with a 20g angiocath; 1 attempt. Blood drawn: rainbow set and herrmann tube(s). Saline lock flushed with 5 mL saline. -- 11:17 09/20/24 BRIAN Stanley R.N. 12:35 09/20/24. Patient transported to CT by stretcher with global position system technician. -- 13:00 09/20/24 BRIAN Stanley R.N. 13:03 09/20/24. IV NS 0.9 % 1000 mL started in bag#1 1000 mL at 999 mL/hr via Site# 1. -- 13:03 09/20/24 BRIAN Stanley R.N. 13:03 09/20/24. IV NS 0.9 % 1000 mL started in bag#1 1000 mL at 999 mL/hr via Site# 1. -- 13:03 09/20/24 BRIAN Stanley R.N. -- 13:38 09/20/24 BRIAN Stanley R.N. 13:39 09/20/24. IV NS 0.9 %: Medication Discontinued. IV completed. Total amount infused: 1000 mL. IV patency established. IV site checked: no pain, redness, or swelling. IV flushed thoroughly post-medication administration. -- 13:39 09/20/24 BRIAN Stanley R.N. DISPOSITION / DISCHARGE 13:38 09/20/24. BP: 162/95 MAP: 117. HR: 101. RR: 18. O2 saturation: 94% Temperature: 97.7 F. Pain level now 2/10. -- 13:38 09/20/24 BRIAN Stanley R.N. 13:39 09/20/24. Site #1 removed upon discharge. Bandage applied. -- 13:39 09/20/24 BRIAN Stanley R.N. Departure time: 13:40 09/20/2024. Condition at departure: improved. No learning barriers present. Discharge instructions provided and reviewed with the patient and family. The patient was discharged by the physician. The 3 of 4 Nurse Narrative patient was discharged h (more content not included)... [facility] [facility] ONLY)on 09-20-2024 ED ORDER SHEET (CPOE ONLY) Order Sheet Order Sheet [address] [place] [address] [id number] 09/20/2024 Patient: MIAN FOSS Sex: Male : 1955 Age: 69y MEASUREMENTS: Wt: 77.1 kg, Ht/Uriel: 72.0 in, BMI: 23.06 ALLERGIES: No known drug allergies MEDICATION/IV/DRIP/FL UID ORDERS Order Description Priority Entered Acknowledged Completed Zofran IVP4 mg (NOW x1) 10:54 09/20/2024 11:17 Stefano Iqbal, 09/20/2024 Clinton Stanley R.N. IV NS 0.9 %1000 mL at 999 12:46 09/20/2024 13:00 13:03 mL/hr (NOW x1) Stefano Iqbal, 09/20/2024 09/20/2024 Ezra Dominguez R.N. RJohnNJohn LAB ORDERS Order Description Priority Entered Acknowledged Collected Completed CBC w Diff Stat Stat 10:54 09/20/2024 11:19 09/20/2024 Candace Barcenas D.O. R.N. CMP Stat Stat 10:54 09/20/2024 11:19 09/20/2024 Stefano Stanley, 1 of 2 Order Sheet Clinton Iqbal R.N. Urinalysis Stat Stat 10:54 09/20/2024 11:19 09/20/2024 Candace Barcenas D.O. RJohnNJohn Lactate, Serum Stat Stat 10:54 09/20/2024 11:19 09/20/2024 Candace Barcenas D.O. [facility]rystal DIAGNOSTIC STUDY ORDERS Order Description Priority Entered Acknowledged Completed CT ABD/PEL w Cont Stat Stat 10:54 09/20/2024 11:19 Stefano Iqbal, 09/20/2024 Clinton Stanley R.N. Reason for Study: Abdominal Pain STAFF ORDERS Order Description Priority Entered Acknowledged Collected Completed IV Saline Lock 10:54 09/20/2024 11:19 09/20/2024 Candace Barcenas D.O. R.N. [Electronically signed by Stefano Iqbal D.O. (09/20/2024 14:27 EST)] 2 of 2 Normal [facility] ED PHYSICIAN CLINICAL REPORT on 09-20-2024 ED PHYSICIAN CLINICAL REPORT Narrative Physician Clinical Narrative [address] [address] [id number] 09/20/2024 Patient: MIAN FOSS Sex: Male : 1955 Age: 69y Disposition: Discharge to Home Disposition Decision Time: 13:23 09/20/2024 Departure Time: 13:40 09/20/2024 Measurements Wt: 77.1 kg, Ht/Uriel: 72.0 in, BMI: 23.06 Initial Vital Sign Measured Time BP MAP HR RR O2Sat ETCO2 Temp Pain GCS RTS 10:37 09/20/2024 175/104 128 116 17 94% 97.7 F 9 Time Seen: 10:49 09/20/2024. Arrived- By private vehicle. Historian- patient. Independent historian- family. HISTORY OF PRESENT ILLNESS Chief Complaint: ABDOMINAL PAIN. (Known left lower inguinal hernia over the past 3 months.). (Increasing pain over the past 3 days. Diarrhea this morning with nausea. Denies any fever, chills, urinary symptoms. Denies any fall or trauma.). REVIEW OF SYSTEMS : No difficulty with urination, pain with urination or urinary frequency. PAST HISTORY no known problem 1 of 11 Narrative Surgeries: Hernia Repair Medications: no known home medications Allergies: no known drug allergies SOCIAL HISTORY No alcohol use or drug use. ADDITIONAL NOTES The nursing notes have been reviewed. PHYSICAL EXAM Vital Signs: Have been reviewed. Appearance: Alert. No acute distress. CVS: Normal heart rate and rhythm. Heart sounds normal. Pulses normal. Respiratory: No respiratory distress. Breath sounds normal. Abdomen: Soft. (Left inguinal hernia which is easily reducible. No overlying skin changes.). Skin: Skin warm and dry. Normal skin color. Extremities: No lower extremity edema. LABS, X-RAYS, AND EKG Laboratory Tests: CBC + DIFF Final JUAN CARLOS: 09/20/2024 11:11:00 EST MsgRcvd: 09/20/2024 12:02 EST Lab Test Result Reference Status Received Comments of 11 Narrative 09/20/2024 12:02 CBC-COMPLETE CBC + DIFF Final EST BLOOD COUNT 10.9 x 10/UL 09/20/2024 12:02 WBC 4.5 - 10.8 Final Above high normal EST 09/20/2024 12:02 RBC 5.44 x 10/UL 4.50 - 6.00 Final EST 17.6 g/dl 09/20/2024 12:02 HEMOGLOBIN 13.0 - 17.5 Final Above high normal EST 09/20/2024 12:02 HEMATOCRIT 51.4 % 40.0 - 52.0 Final EST 09/20/2024 12:02 MCV 95 fl 81 - 98 Final EST 09/20/2024 12:02 MCH 32 pg 27 - 33 Final EST 09/20/2024 12:02 MCHC 34 X10 3 32 - 36 Final EST 09/20/2024 12:02 RDW/CV 13.8 % 12.0 - 15.6 Final EST 09/20/2024 12:02 PLATELET 326 x10/UL 150 - 450 Final EST 09/20/2024 12:02 AUTOMATED MPV 7.5 fl 6.4 - 10.5 Final EST DIFFERENTIAL 84.4 % 09/20/2024 12:02 NEUT % 46.0 - 76.0 Final Above high normal EST 9.5 % 09/20/2024 12:02 LYMPH % 20.0 - 45.0 Final Below low normal EST 09/20/2024 12:02 MONOS % 5.7 % 0.0 - 10.0 Final EST 3 of 11 Narrative 09/20/2024 12:02 EO % 0.2 % 0.0 - 7.0 Final EST 09/20/2024 12:02 BASO % 0.3 % 0.0 - 2.0 Final EST 09/20/2024 12:02 Lymph # 1.03 x10/UL 0.80 - 2.80 Final EST 9.20 x10/UL 09/20/2024 12:02 Neut # 1.50 - 7.10 Final Above high normal EST 09/20/2024 12:02 [place] # 0.62 x10/UL 0.20 - 1.00 Final EST 09/20/2024 12:02 EO # 0.02 x10/UL 0.00 - 0.50 Final EST 09/20/2024 12:02 Baso # 0.04 x10/UL 0.00 - 0.10 Final EST 09/20/2024 12:02 MANUAL DIFF N/A New Order EST 09/20/2024 12:02 MORPHOLOGY N/A New Order EST CMP with eGFR Final JUAN CARLOS: 09/20/2024 11:11:00 EST MsgRcvd: 09/20/2024 12:28 EST Lab Test Result Reference Status Received Comments COMPREHENSIVE 09/20/2024 CMP with eGFR Final METABOLIC 12:28 EST PANEL 09/20/2024 SODIUM 145 mmol/l 136 - 145 Final 12:28 EST 4 of 11 Narrative 09/20/2024 POTASSIUM 4.0 mmol/L 3.5 - 5.1 Final 12:28 EST 09/20/2024 CHLORIDE 106 mmol/L 98 - 107 Final 12:28 EST 09/20/2024 CO2 27.6 mmol/L 21.0 - 32.0 Final 12:28 EST 118 mg/dl 09/20/2024 GLUCOSE Above high 74 - 106 Final 12:28 EST normal 23 mg/dl 09/20/2024 BUN Above high 7 - 18 Final 12:28 EST normal 1.55 mg/dl 09/20/2024 CREATININE Above high 0.70 - 1.30 Final 12:28 EST normal 09/20/2024 AST/SGOT 16 U/L 15 - 37 Final 12:28 EST 09/20/2024 ALK PHOS 71 U/L 46 - 116 Final 12:28 EST 09/20/2024 CALCIUM 9.3 mg/dl 8.5 - 10.1 Final 12:28 EST TOTAL 09/20/2024 7.3 g/dl 6.4 - 8.2 Final PROTEIN 12:28 EST 09/20/2024 ALBUMIN 3.7 g/dL 3.4 - 5.0 Final 12:28 EST 09/20/2024 GLOBULIN 3.6 G/DL 1.5 - 3.8 Final 12:28 EST 09/20/2024 A/G RATIO 1.0 0.9 - 1.6 Final 12:28 EST 5 of 11 Narrative 3.1 mg/dl 09/20/2024 TOTAL BILI Above high 0.2 - 1.0 Final 12:28 EST normal 09/20/2024 B/C RATIO 15 ratio 0 - 30 Final 12:28 EST 09/20/2024 ALT/SGPT 23 U/L 16 - 63 Final 12:28 EST 09/20/2024 ANION GAP 15 (more content not included)... Normal [facility] ED SUPER BILLon 09-20-[address] [place] [address] [id number] 09/20/2024 Patient: MIAN FOSS Sex: Male : 1955 Age: 69y Facility Professional Category Item Description Code Code Quantity Fee Total Nurse/E/M EMERGENCY 394711 1 $0.00 $0.00 DEPT VISIT HIGH SEVERITYFUNCJ (69236-19) Nurse/IV/IM/Infusions Hydration 011112 1 $0.00 $0.00 additional hour (44105) Nurse/IV/IM/Infusions IVP initial (50517) 415799 1 $0.00 $0.00 Grand $0.00 Total Providers Stefano Iqbal D.O. Chief Complaint ABDOMINAL PAIN. Principal Diagnosis 1 of 2 Superbill Colitis. Gastroenteritis. Hernia. ICD-10 Codes K52.9: Noninfective gastroenteritis and colitis, unspecified K46.9: Unspecified abdominal hernia without obstruction or gangrene K52.9: Noninfective gastroenteritis and colitis, unspecified 2 of 2 Normal [facility] ED VISIT SUMMARYon ED VISIT SUMMARY Visit Overview Visit Overview [facility] [address] [place] [address] [id number] 09/20/2024 Patient: MIAN FOSS Sex: Male : 1955 Age: 69y 09/20/2024 02:27 PM EST ED Arrival:10:33 09/20/2024 EST Status: Recent Travel:no Language:eng Adv Directive:No Isolation Status: Ethnicity:N Fall Risk:risk Infectious Disease Exposure:no Measurements:6' / 182.9 Self-Harm Status:no risk Sepsis Screen:negative cm 170.0 lb / 77.1 kg Chief Complaint:ABDOMINAL PAIN, DIARRHEA, (NONE), (states bowels are hanging out), and (weeks) ALLERGIES No Known Drug Allergies HOME MEDICATIONS None PAST MEDICAL HISTORY / PROBLEMS Immunizations: up-to-date 1 3 Visit Overview None PAST SURGICAL HISTORY Hernia Repair SOCIAL HISTORY Smoking status: No Alcohol use: No Drug use: No ED COURSE MEDICATIONS GIVEN IN EMERGENCY DEPARTMENT 11:16 09/20/24 Zofran IVP 4 mg 13:03 09/20/24 IV NS 0.9 % 1000 mL 999 mL/hr IV SITE INFORMATION INTAKE OUTPUT REASSESMENT (most recent) 11:18 09/20/24. Ambulatory to room. GENERAL / NEURO / PSYCH: Alert. Oriented X 4. Appears in no acute distress. HEENT: Mucous membranes are pink. RESPIRATORY: Respirations not labored. Breath sounds within normal limits. CVS: Capillary refill less than 2 seconds. GI / : The patient has had intermittent episodes of nausea. Emesis noted. Has vomited once. Abdominal tenderness in the periumbilical area. Bowel sounds within normal limits. SKIN: Skin is warm and dry. VITAL SIGNS First Vitals Last Vitals Temp 10:37 09/20/24 97.7 F Temp 13:38 09/20/24 97.7 F BP 10:37 09/20/24 175/104 BP 13:38 09/20/24 162/95 HR 10:37 09/20/24 116 HR 13:38 09/20/24 101 RR 10:37 09/20/24 17 RR 13:38 09/20/24 18 O2 Sat 10:37 09/20/24 94% O2 Sat 13:38 09/20/24 94% 2 of 3 Visit Overview First Vitals Last Vitals Pain 10:37 09/20/24 9 Pain 13:38 09/20/24 2 ETCO2 10:37 09/20/24 ETCO2 13:38 09/20/24 GCS 10:37 09/20/24 GCS 13:38 09/20/24 RTS 10:37 09/20/24 RTS 13:38 09/20/24 PROCEDURES NURSING INTERVENTIONS LABS / STUDIES LABS / STUDIES ORDERED CBC w Diff CMP CT ABD/PEL w Cont Lactate, Serum Urinalysis CLINICAL IMPRESSION COLITIS GASTROENTERITIS HERNIA 3 of 3 Normal [facility] ED VITALS FLOW SHEETon 09-20 ED VITALS FLOW SHEET Vitals Vital Sign Flow Sheet [address] [address] [id number] 09/20/2024 Patient: MIAN FOSS Sex: Male : 1955 Age: 69y Measurements Wt: 77.1 kg, Ht/Uriel: 72.0 in, BMI: 23.06 Measured Time BP MAP HR RR O2Sat ETCO2 Temp Pain GCS RTS 13:38 09/20/2024 162/95 117 101 18 94% 97.7 F 2 10:37 09/20/2024 175/104 128 116 17 94% 97.7 F 9 1 of 1 Normal [facility] LACTATEon 09-20-2024 Lactate [Moles/Vol] 1.1 mmol/L Normal 0.4 - 2.0 [facility] Comment on above: Performed By: #### [id number] #### [facility],[address] [place] [id number] Encounters Encounter Date Encounter Type Care Provider Facility Start: 07-13-2025 ambulatory KARENA SUGGS [facility] Start: 07-12-2025 ambulatory Karena Suggs Facility:[facility] Start: 07-12-2025 End: 07-12-2025 ambulatory Sammy Ray Facility:[facility] Start: 07-07-2025 End: 07-07-2025 ambulatory Airam Balderrama Facility:[facility] Start: 06-22-2025 End: 06-22-2025 ambulatory KARENA [facility] Start: 06-15-2025 ambulatory KARENA SUGGS [facility] Start: 06-02-2025 End: 06-02-2025 ambulatory KARENA [facility] Start: 06-01-2025 End: 06-01-2025 ambulatory KARENA [facility] Start: 04-25-2025 End: 04-25-2025 Emergency department patient visit KARENA [facility] Start: 04-15-2025 End: 04-16-2025 Evaluation and management of inpatient MARIZOL BURNETT MD [facility] Start: 04-14-2025 End: 04-15-2025 Emergency department patient visit [facility] Start: 11-29-2024 End: 11-30-2024 Evaluation and management of inpatient KARENA [facility] Start: 11-21-2024 End: 11-21-2024 ambulatory [facility] Start: 11-21-2024 End: 11-21-2024 Encounter for other preprocedural examination KRISTA STRATTON [facility] Start: 10-27-2024 End: 10-27-2024 ambulatory [facility] Start: 10-26-2024 End: 10-26-2024 ambulatory [facility] Start: 09-20-2024 End: 09-20-2024 Emergency department patient visit NUPUR FERNANDEZ [facility] Procedures Date Procedure Procedure Detail Performing Clinician Start: 04-15-2025 Urinalysis NUPUR BRYANT Comment on above: Result Comment: URIN ALYSIS Performed By: #### 2 [id number] #### [facility],[address] [place] [id number] Start: 10-27-2024 Urinalysis NUPUR BRYANT Comment on above: Result Comment: URIN ALYSIS Performed By: #### 2 [id number] #### [facility],[address] [place], [place] [id number] Start: 10-26-2024 PSA screening NUPUR ROMERO Comment on above: Performed By: #### 2 [id number] #### [facility],[address] [place], [place] [id number] Hernia repair MARIZOL BURNETT MD Payers Date Payer Category Payer Self-pay 2025 Medicare [id number] 2025 Medicare [id number] 1955 Unknown [id number] 2.16. [id number] 1955 Unknown [id number] 2.16.8 40.1.323821.3.579.2. 1955 Unknown [id number] 2.16.8 40.1.252778.3.579.2. 1955 Unknown [id number] 2.16.8 40.1.742172.3.579.2. 1955 Unknown [id number] 2.16.8 40.1.750593.3.579.2.651 1955 Unknown [id number] 2.16.8 40.1.465020.3.579.2.65 1955 Unknown [id number] 2.16.8 40.1.839041.3.579.2. 1955 Unknown [id number] 2.16.8 40.1.183103.3.579.2. 1955 Unknown [id number] 2.16.8 40.1.420601.3.579.2. 1955 Unknown [id number] 2.16.8 40.1.117898.3.579.2. 1955 Unknown [id number] 2.16.8 40.1.582761.3.579.2.651 1955 Unknown [id number] 2.16.8 40.1.852510.3.579.2.651 1955 Unknown [id number] 2.16.8 40.1.182065.3.579.2.651 Unknown [id number] 2.16.8 40.1.727844.3.579.2.462 Unknown [id number] 2.16.8 40.1.906717.3.579.2.462 Unknown [id number] 2.16.8 40.1.518215.3.579.2.462 Social History Date Type Detail Facility Tobacco smoking status [facility] Sex Assigned At Male [facility] Start: 04-14-2025 Sex Male (finding) [facility] Clinical Notes 09-20-2024 to 04-16-2025 Note Date & Type Note Facility 04-16-2025 Hospital Discharge instructions Patient Education 04/16/2025 15:06:27 Pulmonary Embolism Pulmonary Embolism A pulmonary embolism (PE) is a sudden blockage or decrease of blood flow in one or both lungs. Most blockages come from a blood clot that forms in the vein of a lower leg, thigh, or arm (deep vein thrombosis, DVT) and travels to the lungs. A clot is blood that has thickened into a gel or solid. PE is a dangerous and life-threatening condition that needs to be treated right away. What are the causes? This condition is usually caused by a blood clot that forms in a vein and moves to the lungs. In rare cases, it may be caused by air, fat, part of a tumor, or other tissue that moves through the veins and into the lungs. What increases the risk? The following factors may make you more likely to develop this condition: Experiencing a traumatic injury, such as breaking a hip or leg. Having: ?A spinal cord injury. ?Orthopedic surgery, especially hip or knee replacement. ?Any major surgery. ?A stroke. ?DVT. ?Blood clots or blood clotting disease. ?Long-term (chronic) lung or heart disease. ?Cancer treated with chemotherapy. ?A central venous catheter. Taking medicines that contain estrogen. These include control pills and hormone replacement therapy. Being: ?. ?In the period of time after your baby is delivered (). ?Older than age 60. ?Overweight. ?A smoker, especially if you have other risks. What are the signs or symptoms? Symptoms of this condition usually start suddenly and include: Shortness of breath during activity or at rest. Coughing, coughing up blood, or coughing up blood-tinged mucus. Chest pain that is often worse with deep breaths. Rapid or irregular heartbeat. Feeling light-headed or dizzy. Fainting. Feeling anxious. Fever. Sweating. Pain and swelling in a leg. This is a symptom of DVT, which can lead to PE. How is this diagnosed? This condition may be diagnosed based on: Your medical history. A physical exam. Blood tests. CT pulmonary angiogram. This test checks blood flow in and around your lungs. Ventilation-perfusion scan, also called a lung VQ scan. This test measures air flow and blood flow to the lungs. An ultrasound of the legs. How is this treated? Treatment for this condition depends on many factors, such as the cause of your PE, your risk for bleeding or developing more clots, and other medical conditions you have. Treatment aims to remove, dissolve, or stop blood clots from forming or growing larger. Treatment may include: Medicines, such as: ?Blood thinning medicines (anticoagulants) to stop clots from forming. ?Medicines that dissolve clots (thrombolytics). Procedures, such as: ?Using a flexible tube to remove a blood clot (embolectomy) or to deliver medicine to destroy it (catheter-directed thrombolysis). ?Inserting a filter into a large vein that carries blood to the heart (inferior vena cava). This filter (vena cava filter) catches blood clots before they reach the lungs. ?Surgery to remove the clot (surgical embolectomy). This is rare. You may need a combination of immediate, long-term (up to 3 months after diagnosis), and extended (more than 3 months after diagnosis) treatments. Your treatment may continue for several months (maintenance therapy). You and your health care provider will work together to choose the treatment program that is best for you. Follow these instructions at home: Medicines Take nvxv-[id number] and prescription medicines only as told by your health care provider. If you are taking an anticoagulant medicine: ?Take the medicine every day at the same time each day. ?Understand what foods and drugs interact with your medicine. ?Understand the side effects of this medicine, including excessive bruising or bleeding. Ask your health care provider or pharmacist about other side effects. General instructions Wear a medical alert bracelet or carry a medical alert card that says you have had a PE and lists what medicines you take. Ask your health care provider when you may return to your normal activities. Avoid sitting or lying for a long time without moving. Maintain a healthy weight. Ask your health care provider what weight is healthy for you. Do not use any products that contain nicotine or tobacco, such as cigarettes, e-cigarettes, and chewing tobacco. If you need help quitting, ask your health care provider. Talk with your health care provider about any travel plans. It is important to make sure that you are still able to take your medicine while on trips. Keep all follow-up visits as told by your health care provider. This is important. Contact a health care provider if: You missed a dose of your blood thinner medicine. Get help right away if: You have: ?New or increased pain, swelling, warmth, or redness in an arm or leg. ?Numbness or tingling in an arm or leg. ?Shortness of breath during activity or at rest. ?A fever. ?Chest pain. ?A rapid or irregular heartbeat. ?A severe headache. ?Vision changes. ?A serious fall or accident, or you hit your head. ?Stomach (abdominal) pain. ?Blood in your vomit, stool, or urine. ?A cut that will not stop bleeding. You cough up blood. You feel light-headed or dizzy. You cannot move your arms or legs. You are confused or have memory loss. These symptoms may represent a serious problem that is an emergency. Do not wait to see if the symptoms will go away. Get medical help right away. Call your local emergency services (911 in the [place] Do not drive yourself to the hospital. Summary A pulmonary embolism (PE) is a sudden blockage or decrease of blood flow in one or both lungs. PE is a dangerous and life-threatening condition that needs to be treated right away. Treatments for this condition usually include medicines to thin your blood (anticoagulants) or medicines to break apart blood clots (thrombolytics). If you are given blood thinners, it is important to take the medicine every day at the same time each day. Understand what foods and drugs interact with any medicines that you are taking. If you have signs of PE or DVT, call your local emergency services (911 in the [place] This information is not intended to replace advice given to you by your health care provider. Make sure you discuss any questions you have with your health care provider. Document Released: 09/11/2001 Document Revised: 06/22/2019 Document Reviewed: 06/22/2019 [employer] Patient Education 2020 [employer]. 04/16/2025 15:05:58 Nonspecific Chest Pain, Adult, Gjas-lc-Qhlz Nonspecific Chest Pain Chest pain can be caused by many different conditions. Some causes of chest pain can be life-threatening. These will require treatment right away. Serious causes of chest pain include: Heart attack. A tear in the body's main blood vessel. Redness and swelling (inflammation) around your heart. Blood clot in your lungs. Other causes of chest pain may not be so serious. These include: Heartburn. Anxiety or stress. Damage to bones or muscles in your chest. Lung infections. Chest pain can feel like: Pain or discomfort in your chest. Crushing, pressure, aching, or squeezing pain. Burning or tingling. Dull or sharp pain that is worse when you move, cough, or take a deep breath. Pain or discomfort that is also felt in your back, neck, jaw, shoulder, or arm, or pain that spreads to any of these areas. It is hard to know whether your pain is caused by something that is serious or something that is not so serious. So it is important to see your doctor right away if you have chest pain. Follow these instructions at home: Medicines Take vxoe-ska-nsidldf and prescription medicines only as told by your doctor. If you were prescribed an antibiotic medicine, take it as told by your doctor. Do not stop taking the antibiotic even if you start to feel better. Lifestyle Rest as told by your doctor. Do not use any products that contain nicotine or tobacco, such as cigarettes, e-cigarettes, and chewing tobacco. If you need help quitting, ask your doctor. Do not drink alcohol. Make lifestyle changes as told by your doctor. These may include: ?Getting regular exercise. Ask your doctor what activities are safe for you. ?Eating a heart-healthy diet. A diet and science specialist (dietitian) can help you to learn healthy eating options. ?Staying at a healthy weight. ?Treating diabetes or high blood pressure, if needed. ?Lowering your stress. Activities such as yoga and relaxation techniques can help. General instructions Pay attention to any changes in your symptoms. Tell your doctor about them or any new symptoms. Avoid any activities that cause chest pain. Keep all follow-up visits as told by your doctor. This is important. You may need more testing if your chest pain does not go away. Contact a doctor if: Your chest pain does not go away. You feel depressed. You have a fever. Get help right away if: Your chest pain is worse. You have a cough that gets worse, or you cough up blood. You have very bad (severe) pain in your belly (abdomen). You pass out (faint). You have either of these for no clear reason: ?Sudden chest discomfort. ?Sudden discomfort in your arms, back, neck, or jaw. You have shortness of breath at any time. You suddenly start to sweat, or your skin gets clammy. You feel sick to your stomach (nauseous). You throw up (vomit). You suddenly feel lightheaded or dizzy. You feel very weak or tired. Your heart starts to beat fast, or it feels like it is skipping beats. These symptoms may be an emergency. Do not wait to see if the symptoms will go away. Get medical help right away. Call your local emergency services (911 in the [place] Do not drive yourself to the hospital. Summary Chest pain can be caused by many different conditions. The cause may be serious and need treatment right away. If you have chest pain, see your doctor right away. Follow your doctor's instructions for taking medicines and making lifestyle changes. Keep all follow-up visits as told by your doctor. This includes visits for any further testing if your chest pain does not go away. Be sure to know the signs that show that your condition has become worse. Get help right away if you have these symptoms. This information is not intended to replace advice given to you by your health care provider. Make sure you discuss any questions you have with your health care provider. Document Released: 03/02/2009 Document Revised: 03/17/2019 Document Reviewed: 03/17/2019 [employer] Patient Education 2020 [employer]. Follow Up Care 04/14/2025 23:56:31 With:Call ASHLEY Dean Pt. Refferral [phone] Address:Unknown When:1-2 days [facility] 04-16-2025 Note Discharge Instructions Thank you for allowing [facility] to assist you with your healthcare needs. The following is important discharge information regarding your hospital visit. What to do next Follow Up Appointments Follow Up with Call ASHLEY [facility] Pt. Refferral [phone] When:Within 1-2 days The Following Activity and Diet Have Been Ordered for You Discharge Activity - Ordered -- Resume your pre-hospitalization activity, 04/16/25 12:01:00 EDT Discharge Diet - Ordered -- Type of Diet: Cardiac, No changes were made to your diet during your hospital stay. Please resume your pre hospitalization diet on discharge., 04/16/25 12:01:00 EDT The Following Equipment Has Been Ordered for You No qualifying data available. The Following Treatments Have Been Ordered for You Discharge Labs No qualifying data available. Discharge Radiology No qualifying data available. Other Therapies No qualifying data available. Post Acute Orders No qualifying data available. Someone Will Contact You Regarding These Home Health Referrals No home referrals have been ordered for you. No one will call you. Allergies NKA Medications Please ask your primary doctor or pharmacist before taking any other medication not listed, including over the counter drugs, herbal medications, vitamins and or supplements as they may interact with your home medications. What How Much When Instructions Last Dose Unchanged acetaminophen-hydrocodone (acetaminophen-hydrocodone 325 mg-10 mg oral tablet) Unchanged apixaban (Eliquis 5 mg oral tablet) 1 tab(s) by mouth Two (2) times a day Unchanged hydrochlorothiazide-losartan (hydrochlorothiazide-losartan 25-100 mg oral tablet) 1 tab(s) by mouth Once a day Please take this list to your next doctor s visit. Bring all medications you take, including over the counter medications, herbals and other supplements with you to your doctor s visit. Patients and families are reminded to discard old lists and to update any records with all medication providers or retail pharmacies. Medication Leaflets apixaban (a PIX a ban) Na What is the most important information I should know about apixaban? Apixaban increases your risk of severe or fatal bleeding, especially if you take certain medicines at the same time (including some rpoa-pdh-fulodcb medicines). Tell your doctor about all medicines you have recently used. Call your doctor at once if you have signs of bleeding such as: easy bruising, unusual bleeding, unexpected pain or swelling, feeling very weak or dizzy, bleeding gums, nosebleeds, heavy menstrual bleeding, blood in your urine or stools, coughing up blood or vomit that looks like coffee grounds, or any bleeding that will not stop. Apixaban can cause a very serious blood clot around your spinal cord that can lead to long-term or permanent paralysis. This type of blood clot can occur during a spinal tap or spinal anesthesia (epidural), especially if you have a genetic spinal defect, if you use a spinal catheter, if you've had spinal surgery or repeated spinal taps, or if you use other drugs that can affect blood clotting. Get emergency medical help if you have symptoms of a spinal cord blood clot such as tingling, numbness, or muscle weakness especially in your legs and feet. Do not stop taking apixaban unless your doctor tells you to. Stopping suddenly can increase your risk of blood clot or stroke. What is apixaban? Apixaban is used to lower the risk of stroke caused by a blood clot in people with a heart rhythm disorder called atrial fibrillation. Apixaban is also used after hip or knee replacement surgery to prevent a type of blood clot called deep vein thrombosis (DVT), which can lead to blood clots in the lungs (pulmonary embolism). Apixaban is also used to treat DVT or pulmonary embolism (PE), and to lower your risk of having a repeat DVT or PE. Apixaban may also be used for purposes not listed in this medication guide. What should I discuss with my healthcare provider before taking apixaban? You should not take apixaban if you are allergic to it, or if you have active bleeding from a surgery, injury, or other cause. Apixaban may cause you to bleed more easily, especially if you have a bleeding disorder that is inherited or caused by disease. Tell your doctor if you have an artificial heart valve, or if you have ever had: bleeding problems; antiphospholipid syndrome, especially if you have a triple positive antibody test; or liver or kidney disease. Apixaban can cause a very serious blood clot around your spinal cord if you undergo a spinal tap or receive spinal anesthesia (epidural). This type of blood clot could cause long-term paralysis, and may be more likely to occur if: you have a spinal catheter in place or if a catheter has been recently removed; you have a history of spinal surgery or repeated spinal taps; you have recently had a spinal tap or epidural anesthesia; you take aspirin or other NSAIDs (nonsteroidal anti-inflammatory drugs)--ibuprofen (Advil, Motrin), naproxen (Aleve), diclofenac, indomethacin, meloxicam, and others; or you are using other medicines to treat or prevent blood clots. Taking apixaban may increase the risk of bleeding while you are or during your delivery. Tell your doctor if you are or plan to become . Do not breastfeed. How should I take apixaban? Follow all directions on your prescription label and read all medication guides or instruction sheets. Your doctor may occasionally change your dose. Use the medicine exactly as directed. You may take apixaban with or without food. If you cannot swallow a tablet whole, crush it and mix with water, apple juice, or applesauce. Swallow the mixture right away without chewing. A crushed tablet mixture may also be given through a nasogastric (NG) feeding tube. Read and carefully follow any Instructions for Use provided with your medicine. Apixaban can make it easier for you to bleed, even from a minor injury. Seek medical attention if you have bleeding that will not stop. Tell your doctor if you have a planned surgery or dental work. You may need to stop taking apixaban for a short time. Do not stop taking apixaban unless your doctor tells you to. If you stop taking apixaban for any reason, your doctor may prescribe another medicine to prevent blood clots. Store at room temperature away from moisture and heat. What happens if I miss a dose? Take the missed dose on the same day you remember it. Take your next dose at the regular time and stay on your twice-daily schedule. Do not take two doses at one time. Get your prescription refilled before you run out of medicine completely. What happens if I overdose? Seek emergency medical attention or call the Poison Help line at . What should I avoid while taking apixaban? Avoid activities that may increase your risk of bleeding or injury. Use extra care while shaving or brushing your teeth. What are the possible side effects of apixaban? Get emergency medical help if you have signs of an allergic reaction: hives; chest pain, wheezing, difficult breathing; feeling light-headed; swelling of your face, lips, tongue, or throat. Also seek emergency medical attention if you have symptoms of a spinal blood clot such as tingling, numbness, or muscle weakness especially in your legs and feet. Call your doctor at once if you have: easy bruising, unusual bleeding (nose, mouth, vagina, or rectum), bleeding from wounds or needle injections, any bleeding that will not stop; heavy menstrual bleeding; headache, dizziness, weakness, feeling like you might pass out; urine that looks red, pink, or brown; or black or bloody stools, coughing up blood or vomit that looks like coffee grounds. This is not a complete list of side effects and others may occur. Call your doctor for medical advice about side effects. You may report side effects to FDA at 5-866-ERJ-0535. What other drugs will affect apixaban? Sometimes it is not safe to use certain medications at the same time. Some drugs can affect your blood levels of other drugs you take, which may increase side effects or make the medications less effective. Many other drugs (including some heza-ffz-mobdmmu medicines) can increase your risk of bleeding or blood clots. Tell your doctor about all medicines you have recently used, especially: any other medicines to treat or prevent blood clots; a blood thinner such as heparin or warfarin (Coumadin, Jantoven); an antidepressant; or aspirin or other NSAID (nonsteroidal anti-inflammatory drug) used senior living. This list is not complete and many other drugs may affect apixaban. This includes prescription and onwo-pfb-dyvplgo medicines, vitamins, and herbal products. Not all possible drug interactions are listed here. Where can I get more information? Your pharmacist can provide more information about apixaban. Remember, keep this and all other medicines out of the reach of children, never share your medicines with others, and use this medication only for the indication prescribed. Every effort has been made to ensure that the information provided by [employer]. ('[employer]') is accurate, up-to-date, and complete, but no guarantee is made to that effect. Drug information contained herein may be time sensitive. [employer] information has been compiled for use by healthcare practitioners and consumers in the [place] and therefore [employer] does not warrant that uses outside of the [place] are appropriate, unless specifically indicated otherwise. [employer] drug information does not endorse drugs, diagnose patients or recommend therapy. new [employer] company drug information is an informational resource designed to assist licensed healthcare practitioners in caring for their patients and/or to serve consumers viewing this service as a supplement to, and not a substitute for, the expertise, skill, knowledge and judgment of healthcare practitioners. The absence of a warning for a given drug or drug combination in no way should be construed to indicate that the drug or drug combination is safe, effective or appropriate for any given patient. [employer] does not assume any responsibility for any aspect of healthcare administered with the aid of information [employer] provides. The information contained herein is not intended to cover all possible uses, directions, precautions, warnings, drug interactions, allergic reactions, or adverse effects. If you have questions about the drugs you are taking, check with your doctor, nurse or pharmacist. Copyright 0824-0489 [employer]. Version: 6.01. Revision Date: 05/21/2021. Education Materials Pulmonary Embolism A pulmonary embolism (PE) is a sudden blockage or decrease of blood flow in one or both lungs. Most blockages come from a blood clot that forms in the vein of a lower leg, thigh, or arm (deep vein thrombosis, DVT) and travels to the lungs. A clot is blood that has thickened into a gel or solid. PE is a dangerous and life-threatening condition that needs to be treated right away. What are the causes? This condition is usually caused by a blood clot that forms in a vein and moves to the lungs. In rare cases, it may be caused by air, fat, part of a tumor, or other tissue that moves through the veins and into the lungs. What increases the risk? The following factors may make you more likely to develop this condition: Experiencing a traumatic injury, such as breaking a hip or leg. Having: ? A spinal cord injury. ? Orthopedic surgery, especially hip or knee replacement. ? Any major surgery. ? A stroke. ? DVT. ? Blood clots or blood clotting disease. ? Long-term (chronic) lung or heart disease. ? Cancer treated with chemotherapy. ? A central venous catheter. Taking medicines that contain estrogen. These include control pills and hormone replacement therapy. Being: ? . ? In the period of time after your baby is delivered (). ? Older than age 60. ? Overweight. ? A smoker, especially if you have other risks. What are the signs or symptoms? Symptoms of this condition usually start suddenly and include: Shortness of breath during activity or at rest. Coughing, coughing up blood, or coughing up blood-tinged mucus. Chest pain that is often worse with deep breaths. Rapid or irregular heartbeat. Feeling light-headed or dizzy. Fainting. Feeling anxious. Fever. Sweating. Pain and swelling in a leg. This is a symptom of DVT, which can lead to PE. How is this diagnosed? This condition may be diagnosed based on: Your medical history. A physical exam. Blood tests. CT pulmonary angiogram. This test checks blood flow in and around your lungs. Ventilation-perfusion scan, also called a lung VQ scan. This test measures air flow and blood flow to the lungs. An ultrasound of the legs. How is this treated? Treatment for this condition depends on many factors, such as the cause of your PE, your risk for bleeding or developing more clots, and other medical conditions you have. Treatment aims to remove, dissolve, or stop blood clots from forming or growing larger. Treatment may include: Medicines, such as: ? Blood thinning medicines (anticoagulants) to stop clots from forming. ? Medicines that dissolve clots (thrombolytics). Procedures, such as: ? Using a flexible tube to remove a blood clot (embolectomy) or to deliver medicine to destroy it (catheter-directed thrombolysis). ? Inserting a filter into a large vein that carries blood to the heart (inferior vena cava). This filter (vena cava filter) catches blood clots before they reach the lungs. ? Surgery to remove the clot (surgical embolectomy). This is rare. You may need a combination of immediate, long-term (up to 3 months after diagnosis), and extended (more than 3 months after diagnosis) treatments. Your treatment may continue for several months (maintenance therapy). You and your health care provider will work together to choose the treatment program that is best for you. Follow these instructions at home: Medicines Take dypx-jvv-hmakutd and prescription medicines only as told by your health care provider. If you are taking an anticoagulant medicine: ? Take the medicine every day at the same time each day. ? Understand what foods and drugs interact with your medicine. ? Understand the side effects of this medicine, including excessive bruising or bleeding. Ask your health care provider or pharmacist about other side effects. General instructions Wear a medical alert bracelet or carry a medical alert card that says you have had a PE and lists what medicines you take. Ask your health care provider when you may return to your normal activities. Avoid sitting or lying for a long time without moving. Maintain a healthy weight. Ask your health care provider what weight is healthy for you. Do not use any products that contain nicotine or tobacco, such as cigarettes, e-cigarettes, and chewing tobacco. If you need help quitting, ask your health care provider. Talk with your health care provider about any travel plans. It is important to make sure that you are still able to take your medicine while on trips. Keep all follow-up visits as told by your health care provider. This is important. Contact a health care provider if: You missed a dose of your blood thinner medicine. Get help right away if: You have: ? New or increased pain, swelling, warmth, or redness in an arm or leg. ? Numbness or tingling in an arm or leg. ? Shortness of breath during activity or at rest. ? A fever. ? Chest pain. ? A rapid or irregular heartbeat. ? A severe headache. ? Vision changes. ? A serious fall or accident, or you hit your head. ? Stomach (abdominal) pain. ? Blood in your vomit, stool, or urine. ? A cut that will not stop bleeding. You cough up blood. You feel light-headed or dizzy. You cannot move your arms or legs. You are confused or have memory loss. These symptoms may represent a serious problem that is an emergency. Do not wait to see if the symptoms will go away. Get medical help right away. Call your local emergency services (911 in the [place] Do not drive yourself to the hospital. Summary A pulmonary embolism (PE) is a sudden blockage or decrease of blood flow in one or both lungs. PE is a dangerous and life-threatening condition that needs to be treated right away. Treatments for this condition usually include medicines to thin your blood (anticoagulants) or medicines to break apart blood clots (thrombolytics). If you are given blood thinners, it is important to take the medicine every day at the same time each day. Understand what foods and drugs interact with any medicines that you are taking. If you have signs of PE or DVT, call your local emergency services (911 in the [place] This information is not intended to replace advice given to you by your health care provider. Make sure you discuss any questions you have with your health care provider. Document Released: 09/11/2001 Document Revised: 06/22/2019 Document Reviewed: 06/22/2019 [employer] Patient Education 2020 [employer]. Nonspecific Chest Pain Chest pain can be caused by many different conditions. Some causes of chest pain can be life-threatening. These will require treatment right away. Serious causes of chest pain include: Heart attack. A tear in the body's main blood vessel. Redness and swelling (inflammation) around your heart. Blood clot in your lungs. Other causes of chest pain may not be so serious. These include: Heartburn. Anxiety or stress. Damage to bones or muscles in your chest. Lung infections. Chest pain can feel like: Pain or discomfort in your chest. Crushing, pressure, aching, or squeezing pain. Burning or tingling. Dull or sharp pain that is worse when you move, cough, or take a deep breath. Pain or discomfort that is also felt in your back, neck, jaw, shoulder, or arm, or pain that spreads to any of these areas. It is hard to know whether your pain is caused by something that is serious or something that is not so serious. So it is important to see your doctor right away if you have chest pain. Follow these instructions at home: Medicines Take xczz-wms-juswebg and prescription medicines only as told by your doctor. If you were prescribed an antibiotic medicine, take it as told by your doctor. Do not stop taking the antibiotic even if you start to feel better. Lifestyle Rest as told by your doctor. Do not use any products that contain nicotine or tobacco, such as cigarettes, e-cigarettes, and chewing tobacco. If you need help quitting, ask your doctor. Do not drink alcohol. Make lifestyle changes as told by your doctor. These may include: ? Getting regular exercise. Ask your doctor what activities are safe for you. ? Eating a heart-healthy diet. A diet and science specialist (dietitian) can help you to learn healthy eating options. ? Staying at a healthy weight. ? Treating diabetes or high blood pressure, if needed. ? Lowering your stress. Activities such as yoga and relaxation techniques can help. General instructions Pay attention to any changes in your symptoms. Tell your doctor about them or any new symptoms. Avoid any activities that cause chest pain. Keep all follow-up visits as told by your doctor. This is important. You may need more testing if your chest pain does not go away. Contact a doctor if: Your chest pain does not go away. You feel depressed. You have a fever. Get help right away if: Your chest pain is worse. You have a cough that gets worse, or you cough up blood. You have very bad (severe) pain in your belly (abdomen). You pass out (faint). You have either of these for no clear reason: ? Sudden chest discomfort. ? Sudden discomfort in your arms, back, neck, or jaw. You have shortness of breath at any time. You suddenly start to sweat, or your skin gets clammy. You feel sick to your stomach (nauseous). You throw up (vomit). You suddenly feel lightheaded or dizzy. You feel very weak or tired. Your heart starts to beat fast, or it feels like it is skipping beats. These symptoms may be an emergency. Do not wait to see if the symptoms will go away. Get medical help right away. Call your local emergency services (911 in the [place] Do not drive yourself to the hospital. Summary Chest pain can be caused by many different conditions. The cause may be serious and need treatment right away. If you have chest pain, see your doctor right away. Follow your doctor's instructions for taking medicines and making lifestyle changes. Keep all follow-up visits as told by your doctor. This includes visits for any further testing if your chest pain does not go away. Be sure to know the signs that show that your condition has become worse. Get help right away if you have these symptoms. This information is not intended to replace advice given to you by your health care provider. Make sure you discuss any questions you have with your health care provider. Document Released: 03/02/2009 Document Revised: 03/17/2019 Document Reviewed: 03/17/2019 Elsevier Patient Education 2020 [employer] Additional Information VACCINATE! IT SAVES LIVES! Members of the community who have not yet received the COVID-19 vaccine and would like to receive it can visit one of [facility] vaccine clinics. There are many vaccine clinic locations within the [facility]. For locations and available times, please visit https://[email or web address].mei o.gov/. It is important to note that some COVID mobile vaccine clinics are held outdoors and may be canceled in rainy or stormy conditions. To learn more about pediatric vaccinations (ages 5-11), we invite you to visit the [employer] webpage. [email or web address]/pag [email or web address]-[email or web address]-[email or web address]-Ffubn-Uflrtuxhl.html To learn more about the COVID-19 vaccine, we invite you to visit the CDC website for a list of frequently asked questions.https://www.cdc.gov/sudha navirus/2019-ncov/vaccines/faq.htm l [employer] Patient Portal Access Instructions: Stay connected with your healthcare team and access your personal medical information anytime with the [employer] Patient Portal. Please follow the directions below to create your [employer] account: 1.Access the email account you provided upon registration to the hospital/physician office.2.Look for an invitation email from [facility].3.Open the email and access the invitation link: Accept Invitation to [employer].4.Fill in the required jean to create your account. To access your account, visit [employer]. Click the blue button labeled Access Patient Portal and then log in with the username and password that you created in the steps above. You will be able to view your test results, lab results, a summary of your visits, upcoming appointments and more. There is also a convenient messaging option where you can send secure messages to your provider. In addition, you will have the ability to download any documents or summaries to your computer and/or send the information securely to a physician. Remember that your healthcare information is confidential, so carefully consider who you will allow to register on the [employer] Patient Portal for access to your information. You can also access the [employer] Patient Portal on the [employer] kitty. Simply click on Patient Portal and then log into your account. If you would like to receive a full copy of your medical records, please contact the [facility] Medical Records Department by calling [phone], Thursday through Thursday between 8 a.m. and 4:30 p.m. HOW TO SAFELY DISPOSE OF PRESCRIPTION MEDICATIONS Please use one of the following methods to safely dispose of your unused medications. 1.Use a drug disposal kit: the drug disposal pouch allows you to safely discard your old and unused drugs. Ask your nurse to give you one when you are discharged.2.Visit a local take-back location: Many local pharmacies and police departments have programs that collect old and unwanted prescription drugs. Call your local pharmacy or go to http://Zumbl/7E3Hq9l to find one close to you.3.Make use of household items: Use cat litter or old coffee grounds to dispose medications if other options are not available. Mix your drugs with these household products, seal them in an airtight container and throw it into the garbage. Call [facility]: [phone] to be sure your drugs can be disposed of in this way. Some medicines may require a different approach.4.Never flush your medications down the toilet. IF YOU HAVE BEEN PRESCRIBED AN OPIOID FOR PAIN If you have been prescribed an opioid (such as hydrocodone, oxycodone or morphine), it is critical to understand the possible side effects and risks of opioid pain medications. Even when taken as directed, opioids can have several side effects including: Tolerance, meaning you might need to take more of a medication for the same pain relief. Nausea, vomiting and/or constipation. Sleepiness, dizziness, dry mouth, confusion, depression or itching. Physical dependence, meaning you have withdrawal symptoms when a medication is stopped, can develop within a few days. KNOW YOUR RESPONSIBILITIES It is important to know exactly how much and how often to take the opioid pain medications you are prescribed. Never take opioids in higher amounts or more often than prescribed. Do not combine opioids with alcohol or other drugs that cause drowsiness, such as benzodiazepines, also known as benzos, including diazepam and alprazolam, muscle relaxants or sleep aids. Never sell or share prescription opioids. This is illegal. Store opioids in a secure place and out of reach of others (including children, family, friends and visitors). The last page of this document has been signed and retained as a CHART COPY. Signatures Patient Education Materials Pulmonary Embolism Nonspecific Chest Pain, Adult, Hjok-ld-Hazl Medication Leaflets [facility] My discharge plan and instructions have been reviewed and explained to me and I,MIAN FOSS understand my current condition and have read and understand these discharge instructions. I have received a written copy of the plan/instructions. If I have questions, I am aware that I should contact my doctor. Patient/Director Mobile Signature: Date/Time: Relationship to Patient: ___ Witness Name/Signature: Date/Time: [facility] 04-16-2025 Discharge summary Date of Service 04/16/2025 Discharge Diagnosis Atypical chest pain, with negative stress test History of hypertension History of DVT/PE on [facility] this is a 70-year-old male with past medical history of hypertension, PE and DVT transferred for chest pain evaluation. Patient states chest pain started about a week ago. Non-exertional occurs at rest located in the midsternal region nonradiating. Patient denies any shortness of breath on exertion or at rest, palpitations, dizziness, lower extremity edema. Patient denies any prior cardiac workup. S/p cardiac stress test which came back negative discharged home on losartan 100 mg and hydrochlorothiazide 25 mg. Allergies NKA Consults No qualifying data available. Imaging Results and Diagnostics Pharmacological stress test which came back negative for any ischemia Physical Exam Vitals and Measurements T: 37.1 C (Oral) TMIN: 36.5 C (Oral) TMAX: 37.3 C (Oral) HR: 78 (Monitored) RR: 16 BP: 145/67 SpO2: 95% Weight Dosing Weight: 84.3 kg (04/15/25) Code Status Code Status - Ordered -- 04/15/25 6:40:00 EDT, Full Code, Constant Order Admission Date 04/15/2025 Discharge Date 04/16/2025 Medications Unchanged acetaminophen-hydrocodone (acetaminophen-hydrocodone 325 mg-10 mg oral tablet) apixaban (Eliquis 5 mg oral tablet)1 tab(s) by mouth two (2) times a day. hydrochlorothiazide-losartan (hydrochlorothiazide-losartan 25-100 mg oral tablet)1 tab(s) by mouth once a day. Follow Up Follow Up with Call AMB New Pt. Refferral [phone] When:Within 1-2 days Follow Up Appointments No qualifying data available. Follow Up Labs/Studies Discharge Labs No Follow-up Labs Discharge Studies No Follow-up Studies Discharge Diet Discharge Diet - Ordered -- Type of Diet: Cardiac, No changes were made to your diet during your hospital stay. Please resume your pre hospitalization diet on discharge., 04/16/25 12:01:00 EDT Discharge Activity Discharge Activity - Ordered -- Resume your pre-hospitalization activity, 04/16/25 12:01:00 EDT Digitally Signed by RAKEL HOLLIDAY MD on 04/16/2025 12:45 PM Digitally Signed by DAE SHAY MD [facility] 04-15-2025 Note DATE OF PROCEDURE: 04/15/2025 PROCEDURE: Lexiscan nuclear. INDICATIONS: Chest pain. Resting EKG showed normal sinus rhythm and normal EKG. COMMENTS: Lexiscan 0.4 mg was infused over 10 seconds. The patient's initial blood pressure was 154/86 with heart rate of 64. With Lexiscan infusion, the patient's blood pressure was 142/70 with heart rate of 91. The patient had no symptoms. No chest pain. No significant ST changes and no significant arrhythmias. IMPRESSION: 1. Uneventful Lexiscan infusion. 2. Nuclear images will be reported separately. JAYDE MANN M.D. ERNESTINA/LESTER JOB#: [id number] DICTATION ID#: [id number] Digitally Signed by JAYDE MANN MD on 04/15/2025 08:24 PM [facility] 04-15-2025 Evaluation + Plan note Extrac ibrahima from: Title:History and Physical Author:BRAEDEN SHORE MD Date:04/15/25 This is a 70-year-old male w ith past medical history of hypertension, PE and DVT transferred for chest pain evaluation. Admitted for chest pain evaluation Atypical chest pain From report obtained troponin negative x 2 proBNP negative Will repeat all labs EKG nonischemic Will get echocardiogram Lexiscan stress test Hypertension Patient on losartan 100 and hydrochlorothiazide 25 Resumed home medications DVT/PE Diagnosed a couple months ago Unknown etiology seems to be unprovoked from patient's history Continue with [facility] 07-19-2025 Note* Exam Date Time Procedure Performing Provider Status 04/15/25 1:17 PM NM Myocardial Spect Rest/Stress DAE SHAY MD; Auth (Verified) [id number] ORIGINAL NM MYOCARDIAL SPECT STRESS/REST CLINICAL STATEMENT: chest pain TECHNIQUE: Lexiscan dose:0.4 mg Radiopharmaceutical (stress): Tc-99m Sestamibi Dose:27 mCi Radiopharmaceutical (rest): Tc-99m Sestamibi Dose:7 mCi SPECT acquisition and processing Reconstruction and reorientation of SPECT images into short axis, vertical and horizontal long axisplanes Quantitative LVEF assessment COMPARISON:None REPORT:Image quality is good. No significant patient motion on the rotating planar images. Low-doseCT scan did not reveal any significant coronary artery calcifications. Perfusion SPECT images reveal homogeneous radiotracer uptake in all segments of the myocardium bothat rest and also in stress. No evidence of reversible ischemia. No evidence of myocardial scar. Gated SPECT images reveal normal wall motion and wall thickening with ejection fraction 59%. End-diastolic volume 79 mL. No evidence of transient ischemic dilatation's. IMPRESSION: 1. No evidence of significant reversible ischemia 2. No evidence of myocardial scar 3. Normal wall motion and wall thickening with ejection fraction 59% 4. No previous studies available for comparison Interpreted By: Dae Shay Preliminary Report By: Dae Shay Electronically Signed By: Dea Shay Dictated Date: 04/15/2025 2:44:57 PM Prelim Date: 04/15/2025 2:44:57 PM Sign Date: 04/15/2025 2:48:03 PM Ordering Provider:Braeden Shore [facility] [id number] History and physical note Date of Service 04/15/2025 Chief Complaint Chest pain History of Present Illness This is a 70-year-old male with past medical history of hypertension, PE and DVT transferred for chest pain evaluation. Patient states chest pain started about a week ago. Non-exertional occurs at rest located in the midsternal region nonradiating. Patient denies any shortness of breath on exertionor at rest, palpitations, dizziness, lower extremity edema. Patient denies any prior cardiac workup. Review of Systems Same as HPI Physical Exam Vitals and Measurements T: 36.0 C (Oral) HR: 63 (Monitored) RR: 18 BP: 150/68 BP: 170/70(Line) SpO2: 100% HT: 175.3 cm WT: 84.3 kg BMI: 27.43 Weight Dosing Weight: 84.3 kg (04/15/25) General Appearance: Patient comfortably lying on bed, not in acute distress Head: Normocephalic, atraumatic EENT: PERRLA Neck: supple, no JVD, no mass Cardiac: s1s2,RRR, no murmurs or rubs or gallops Lungs: clear to auscultation bilaterally, no wheeze or rhonchi or crackles Abdomen: soft , Nontender, no organomegaly, bowel sounds heard Musculoskeletal: full ROM , no gross deformities Extremities: no rash or ulcers. Trace pedal edema Neurological: alert, oriented x 3 Skin: no rash or ulcers Lab Results No 36 Hour Lab Data Assessment/Plan This is a 70-year-old male with past medical history of hypertension, PE and DVT transferred for chest pain evaluation. Admitted for chest pain evaluation Atypical chest pain From report obtained troponin negative x 2 proBNP negative Will repeat all labs EKG nonischemic Will get echocardiogram Lexiscan stress test Hypertension Patient on losartan 100 and hydrochlorothiazide 25 Resumed home medications DVT/PE Diagnosed a couple months ago Unknown etiology seems to be unprovoked from patient's history Continue with [facility] Digitally Signed by BRAEDEN SHORE MD on 04/15/2025 10:00 AM Digitally Signed by DAE SHAY MD [facility] [id number] Note* Exam Date Time Procedure Performing Provider Status 04/15/25 6:35 AM Electrocardiogram - EKG - CV LINA MANN MD; Auth (Verified) ECG Final Report ATRIAL FIBRILLATION NONSPECIFIC INTRAVENTRICULAR CONDUCTION DELAY INFERIOR INFARCT, OLD Electronic Signature: JAYDE MANN MD 04/15/2025 19:39:49 [facility] [id number] [facility] ACCOUNT SEX AGE ADMIT DISCHARGE PT MED. RECORD# NUMBER DATE DATE TYPE PIPO [id number] Ray 69 11/29/24 1 MIAN Kortney [id number] ROOM: 304MO DATE OF : 59 DICTATING PHYSICIAN: Abiola Stapleton CHIEF COMPLAINT: Left-sided chest pain. HISTORY OF PRESENT ILLNESS: This is a 69-year-old male with a past medical history significant for hypertension. He has had a degenerative difficulty with his hips. He has been using crutches for the past 2 months and not ambulating as much. He came to the Emergency Room when he started to have left-sided chest pain and also in his left upper back. He did not describe it as sharp. He just said it was straight pain right through. No cough. He has had no history of blood clots in the past. No long travel and no trauma. No family history of blood clots. In the Emergency Room, he was diagnosed with an acute pulmonary embolism. He was placed on a heparin drip per protocol. Doppler ultrasound was completed with right lower extremity DVT, and he was admitted to the hospital. This morning, he denies chest pain or shortness of breath. PAST MEDICAL HISTORY: Hypertension. PAST SURGICAL HISTORY: Denies. MEDICATIONS: Lisinopril 10 mg daily. ALLERGIES: No known drug allergies. FAMILY HISTORY: Both parents of old age. No blood clots that he is aware of. SOCIAL HISTORY: He does not smoke nor drink alcohol. 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 REVIEW OF SYSTEMS: He denies any headache or acute visual changes. No recent weight changes, fever or chills. Chest pain as described above. No shortness of breath. No cough. No abdominal pain. The rest of review of systems was discussed and was negative. PHYSICAL EXAMINATION GENERAL APPEARANCE: The patient was lying in bed in no acute distress. He is alert, pleasant and cooperative. VITAL SIGNS: Blood pressure is 166/81, heart rate 99, respirations 16, temperature Page 1 of 3 MIAN FOSS History & Physical MIAN FOSS :1955 98.9, and oxygen saturation 93% on room air. Weight is 179 pounds with a BMI of 26.43. HEENT: Unremarkable. NECK: Neck is supple. No JVD. LUNGS: Lungs with normal respiratory effort, equal lung expansion, and clear to auscultation bilaterally. HEART: Heart is a tachycardic rate with a regular rhythm. ABDOMEN: Positive bowel sounds, soft and nontender. EXTREMITIES: Extremities revealed some slight swelling in the right calf. Skin is dry. NEUROLOGIC: He is alert. Mood, affect and memory are within normal limits. Speech is clear. DIAGNOSTIC DATA: White count was 11,000 on admission with a slight left shift. This morning, it was 8800 with no left shift. D-dimer was 791. BUN was 21 and creatinine 1.16. Repeated this morning, BUN was 28 and creatinine 1.48. Glucose was 115 non-fasting and this morning was 93. Triglycerides are 58, cholesterol 115, HDL 44, and LDL 59. ASSESSMENT/PLAN: 1. Acute pulmonary embolism of the right lower lobe. He was initially on a heparin drip. We will transition to Eliquis and start with 10 mg twice daily for 7 days and then 5 mg daily. We will monitor for any hypoxia. He does have a DVT. We will make sure he can get up and ambulate without any difficulty. He is following up as an outpatient for his chronic hip pain. 2. Deep venous thrombosis of the right lower extremity, likely secondary to the decrease in ambulation. 3. Bilateral hip degenerative joint disease. He is scheduled for surgery. This will need to be held due to his blood clots. 4. Acute kidney injury. We will start lactated Ringer's at 100 mL/hour and repeat laboratories in the a.m. The above was discussed with the patient. All of his questions were answered, and he verbalized understanding of the plan. Dictated by linda Eugene for Dr. Stapleton. Dictated By: Abiola Stapleton MD 11/29/24 12:43 JOB #: [id number] Page 2 of 3 MIAN FOSS History & Physical RADHADOMITILAMIAN ULLOA :1955 Transcribed By: esperanza 11/29/24 13:29 Electronically signed by: E-Sign: ABIOLA STAPLETON MD 12/04/24 13:48 Update to H&P: [ ] No changes: I have examined the patient and reviewed the H&P and there are no changes. [ ] As previously dictated with the following changes: ____ ____ ____ PHYSICIAN SIGNATURE: TIME: DATE: Page 3 of 3 MIAN FOSS [facility] & [facility]el [facility] 12-03-2024 NoteDischarge Instructions Discharge Summary [address] [place] [address] [id number] 11/28/2024 Patient: MIAN FOSS Sex: Male : 1955 Age: 69y Thank you for visiting [facility]. You have been evaluated today by Brandon Paz D.O. for the following condition(s): Principal Diagnosis Chest pain characterized as discomfort, with painful respirations. Acute pulmonary embolism. No acute cor pulmonale. Patient Signature Facility Director Mobile Date/Time General Instructions with ExitWriter [address] [address] [id number] 11/28/2024 Patient: MIAN FOSS Sex: Male : 1955 Age: 69y Thank you for visiting [facility]. You have been evaluated today by Brandon Paz D.O. for the following condition(s): 1 of 2 Discharge Instructions Principal Diagnosis Chest pain characterized as discomfort, with painful respirations. Acute pulmonary embolism. No acute cor pulmonale. 2 of 2Joel [facility]12-24-2024 NoteDischarge Instructions Discharge Summary [address] [address] [id number] 09/20/2024 Patient: MIAN FOSS Sex: Male : 1955 Age: 69y Thank you for visiting [facility]. You have been evaluated today by Stefano Iqbal D.O. for the following condition(s): Principal Diagnosis Colitis. Gastroenteritis. Hernia. INSTRUCTIONS Prescription Medications: amoxicillin 875 mg-potassium clavulanate 125 mg tablet: Take 1 tablet by mouth twice a day for 10 days, dispense 20 tablet. Refills 0. Pharmacy: [facility] [id number] [place] [address]. ondansetron 4 mg disintegrating tablet: Take 1 tablet on tongue every eight hours for nausea/vomiting for 5 days, dispense 15 tablet. Refills 0. Pharmacy: [facility] [address] [place] [address]. dicyclomine 10 mg capsule: 20 mg every eight hours as needed for pain for 5 days, dispense 30 capsule. Refills 0. Pharmacy: [facility] [address] [place] [address]. 1 of 9 Discharge Instructions Follow-up: Follow up with your healthcare provider in two days. Call for an appointment. You have been given the following additional information: Hernia (Adult) Noninfectious Gastroenteritis (Adult) Patient Signature Facility Director Mobile Date/Time General Instructions with ExitWriter [facility] [address] [place] [address] [id number] 09/20/2024 Patient: MIAN FOSS Sex: Male : 1955 Age: 69y Thank you for visiting [facility]. You have been evaluated today by Stefano Iqbal D.O. for the following condition(s): Principal Diagnosis Colitis. Gastroenteritis. Hernia. INSTRUCTIONS Prescription Medications: amoxicillin 875 mg-potassium clavulanate 125 mg tablet: Take 1 tablet by mouth twice a day for 10 days, dispense 20 tablet. Refills 0. Pharmacy: [facility] [id number] [place] [address]. 2 of 9 Discharge Instructions ondansetron 4 mg disintegrating tablet: Take 1 tablet on tongue every eight hours for nausea/vomiting for 5 days, dispense 15 tablet. Refills 0. Pharmacy: [facility] [address] [place] [address]. dicyclomine 10 mg capsule: 20 mg every eight hours as needed for pain for 5 days, dispense 30 capsule. Refills 0. Pharmacy: [facility] [address] [place] [address]. Follow-up: Follow up with your healthcare provider in two days. Call for an appointment. ADDITIONAL INFORMATION Hernia (Adult) 3 of 9 Discharge Instructions A hernia can happen when there is a weakness or defect in the wall of the abdomen or groin. Intestines or nearby tissues may move from their usual location and push through the weakness in the wall. This can cause a hernia (bulge) you may see or feel. Causes and risk factors A hernia may be present at . Or it may be caused by the wear and tear of daily living. Certainfactors can make a hernia more likely. These can include: Heavy lifting Straining, whether from lifting, movement, or constipation Chronic cough Injury to the abdominal wall Excess weight Prior surgery Older age Family history of hernia Symptoms Symptoms of a hernia may come on suddenly. Or they may appear slowly over time. Some common symptoms include: Bulge in the groin area, around the navel, or in the scrotum (the bulge may get bigger when you stand and go away when you lie down) Pain or pressure around the bulge Pain during activities such as lifting, coughing, or sneezing A feeling of weakness or pressure in the groin Pain or swelling in the scrotum Types of hernias There are different types of hernia. The type you have depends on its location: Inguinal. This type is in the groin or scrotum. It is more common in men. But, women can get this hernia, too. 4 of 9 Discharge Instructions Femoral. This type is in the groin, upper thigh (where the leg bends), or labia. It is more common in women. Ventral. This type is in the abdominal wall. Umbilical. This type occurs around the navel (belly button). Incisional. This type occurs at the site of a previous surgery. The condition of the hernia can help determine how urgently it needs to be treated. Reducible. It goes back in by itself, or it can be pushed back in. Irreducible. It can't be pushed back in. Incarcerated/strangulated. The intestine is trapped (incarcerated). If this happens, you won't be able to push the bulge back in. I (more content not included)...[facility] N[facility] No data available for this section [facility] Summary Purpose Family History No Family History Records Found Advance Directives No Advanced Directives Records FoundNo Advanced Directives Records FoundNo Advanced Directives Records Found Additional Source Comments Patient Care team informatio n (unrecognized section and content) Care Team Related Persons Name: LOWELL LONG (unrecognized sect ion and content) No Status Records FoundNo Status Records FoundNo Status Records Found INFORMATION SOURCE (unrecogn ized section and content) DATE CREATED AUTHOR 05/06/2025 [facility] DATE CREATED AUTHOR AUTHOR'S ORGANIZ ATION 07/14/2025 [facility] DATE CREATED AUTHOR AUTHOR'S ORGANIZ ATION 07/15/[address] [facility] FOR RECORDS PERTAINING TO PATIENTS WHO ARE OR HAVE BEEN ENROLLED IN A CHEMICAL DEPENDENCY/SUBSTANCEABUSE PROGRAM, SOME INFORMATION MAY BE OMITTED. This clinical summary was aggregated from multiple sources. Caution should be exercised in using it in the provision of clinical care. This summary normalizes information from multiple sources, and as a consequence, information in this document may materially change the coding, format and clinical context of patient data. In addition, data may be omitted in some cases. CLINICAL DECISIONS SHOULD BE BASED ON THE PRIMARY CLINICAL RECORDS. [facility]. provides no warranty or guarantee of the accuracy or completeness of information in this document."
[2025-07-18] MEDS: HEPARIN/D5w 25,000 UNITS 25,000 UNITS/250 ML IV.SOLN. 12.8 UNITS CONT INF (16:58)
--- NOTE | 2025-07-18 16:58 | HP.PCM_ITS ---
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 His DVT was secondary to severely reduced activity on account of his severe osteoarthritis. He presented to [facility] for his scheduled hip replacement earlier today, but looked unwell and was complaining of abdominal/back pain and so he was referred to the ER. In the ER, he had labs indicating ELIGIO with reported Cr ~2 and he had imaging to include Abd/Pelvis CTA which suggested IVC filter thrombosis and thrombosis of the iliac and femoral vessels distally and so he was initiated on heparin drip and transferred here for definitive management. He reports that he was feeling to his normal baseline until he had to stop his usual pain medications yesterday; that is when he started to notice significant back, flank, and hip pain, though he does have chronic back/hip pain this felt worse than usual. He has been NPO since midnight prior for his anticipated surgery; he reports he has not urinated since yesterday. He does not have an urge to urinate; he denies any saddle paresthesias. He reports feeling constipated but this is also chronic. He is not sure if his legs are more swollen or feel different than usual. He thinks maybe they are a bit more red- purple than usual. He is not the best historian. Otherwise, his medical history is otherwise significant for HTN, GERD, lumbar spinal stenosis. [facility] Medical History (Updated 07/18/25 @ 18:03 by PITER Pearson) Pulmonary embolism Hypertension DVT (deep venous thrombosis) Hernia Home Medications ?Medication ?Instructions ?Recorded ?Last Taken ?Type hydrocodone 10 mg-acetaminophen 1 tab PO Q8 PRN severe pain 07/07/25 Unknown History 325 mg tablet losartan 100 1 tab PO QDAY 07/07/2507/17 History mg-hydrochlorothiazide 25 mg tablet Allergy/AdvReac Type Severity Reaction Status Date / Time No Known Allergies Allergy Verified 07/18/25 15:55 Social History Smoking Status: Never smoker Vital Signs Vital Signs Vital Signs: 07/18/25 15:48 07/18/25 16:00 07/18/25 16:00 Temperature 97.7 F L Temperature Source Temporal Pulse Rate 91 90 86 Respiratory Rate 20 H 20 H Blood Pressure 145/86 H 151/80 H Blood Pressure Mean 105 103 Blood Pressure Source Monitor Monitor Blood Pressure Position Semi-Fowlers Semi-Fowlers Blood Pressure Location Left Arm Pulse Ox 96 96 Oxygen Delivery Method Room Air Room Air 07/18/25 16:15 Temperature Temperature Source Pulse Rate 89 Respiratory Rate 15 Blood Pressure 139/72 H Blood Pressure Mean 94 Blood Pressure Source Monitor Blood Pressure Position Semi-Fowlers Blood Pressure Location Left Arm Pulse Ox 96 Oxygen Delivery Method Room Air Weight Weight: 188 lb 7.924 oz Body Mass Index (BMI) 27.8 Physical Exam Const alert, oriented x3 and no apparent distress General Appearance: cooperative HEENT normocephalic, head/scalp atraumatic, hearing grossly normal bilaterally, external ears normal and external nose normal Eyes General Eye: normal appearance of both eyes Neck General: normal visual inspection and trachea midline Resp normal respiratory effort, normal air movement, no retractions and no use of accessory muscles Effort and Inspection: able to speak in complete sentences; Negative for labored, grunting or stridor Cardio regular rate and regular rhythm Extremity Extremity Narrative: BLE edematous, tight to palpation, with purple discoloration consistent with venous stasis Pedal pulses present though diminished Skin no rashes or lesions noted and no wounds Neuro oriented x3, moves all extremities and no focal motor deficits Speech: speech normal Psych mental status grossly normal Appearance: grossly normal Attitude: calm and engaged Activity / Motor Behavior: appropriate eye contact Speech: normal speech Mood & Affect: euthymic mood Results Lab / Micro Data 07/18/25 16:45 07/18/25 16:45 Assessment & Plan Assessment/Plan (1) IVC thrombosis: PLAN: CTA images reviewed and physical exam consistent with likely thrombosed IVC filter. Plan is for thrombectomy in the [employer] lab[employer] tomorrow, tentatively around 11 AM. NPO after midnight; ok for normal diet for dinner tonight and encourage oral fluid intake until then as well. Continue therapeutic heparin drip. (2) ELIGIO (acute kidney injury): PLAN: His Cr was 1.27 and GFR 62 on 07/12/25; reportedly Cr ~2 at [place], on recheck here has improved to 1.7 and GFR 43 with IV hydration to this point. Bladder scan showed only 300cc. ELIGIO likely secondary to dehydration and impaired venous return. Will continue to hydrate with IVF and monitor. Charges/Coding Visit Charges Inpatient E&M: 90070 Init Hosp L2
[2025-07-18] MEDS: 0.9% Saline Lock 10 ML Syringe IV ×2 (16:59→20:56)
[2025-07-18] MEDS: 0.9% Normal Saline (1000mL) 1,000 ML 125 ML IV (16:59)
[2025-07-18] MEDS: HYDROcodone Bitartrate/Apap 5/325 Tablet PO (17:01)
[2025-07-18 17:02] LABS: Hematocrit 40.7 % (40-54); Hemoglobin 13.7 g/dL (13.0-16.5); Immature Granulocytes Count 0.060 X10^3/uL (0.0-0.0); Mean Corp Hgb Conc 33.7 g/dL (32-36); Mean Corpuscular Volume 94.0 fL (80-94); Mean Platelet Vol. 9.7 fl (6.2-12.0); NRBC Flagged by Analyzer 0 % (0-5); Platelet Count 170 K/mm3 (150-450); RBC Distribution Width CV 13.4 % (11.6-14.6); RBC Distribution Width SD 46.3 fl (35.1-43.9); Red Blood Count 4.33 M/mm3 (4.6-6.2); White Blood Count 12.1 K/mm3 (4.4-11.0)
[2025-07-18 17:22] LABS: Anion Gap 12 (5-15); BUN 37 mg/dL (4-19); BUN/Creat Ratio 21.6 RATIO (10-20); Calcium,Total 9.2 mg/dL (7.6-11.0); Carbon Dioxide 24.8 mmol/L (21.0-32.0); Chloride 105 mmol/L (98-108); Estimated Creatinine Clearance 45.07 ml/min (50-250); Glucose 119 mg/dL (70-99); Potassium 4.1 mmol/L (3.3-5.1)
[2025-07-18 20:50] LABS: Partial Thromboplast Time 86.6 Seconds (24.1-36.2)
--- NOTE | 2025-07-18 22:12 | NURSING ---
Ex- Kate called in for an update. Patient stated it was okay for us to update her even though she wasn't listed in his chart.
[2025-07-19] VITALS (31 sets, daily range): BP systolic 108–159; BP diastolic 50–83; PULSE 66–96; RESP 12–20; TEMP 36.3–36.6; O2SAT 92–100; BMI 28.9; BMI 28.8
[2025-07-19] MEDS: 0.9% Normal Saline (1000mL) 1,000 ML 125 ML IV ×3 (00:39→16:34)
[2025-07-19 02:54] LABS: Hematocrit 35.9 % (40-54); Hemoglobin 12.1 g/dL (13.0-16.5); Immature Granulocytes Count 0.020 X10^3/uL (0.0-0.0); Mean Corp Hgb Conc 33.7 g/dL (32-36); Mean Corpuscular Volume 94.0 fL (80-94); Mean Platelet Vol. 9.4 fl (6.2-12.0); NRBC Flagged by Analyzer 0 % (0-5); Platelet Count 144 K/mm3 (150-450); RBC Distribution Width CV 13.4 % (11.6-14.6); RBC Distribution Width SD 46.5 fl (35.1-43.9); Red Blood Count 3.82 M/mm3 (4.6-6.2); White Blood Count 10.1 K/mm3 (4.4-11.0)
[2025-07-19 03:36] LABS: Partial Thromboplast Time 146.7 Seconds (24.1-36.2)
[2025-07-19 04:00] LABS: Anion Gap 11 (5-15); BUN 42 mg/dL (4-19); BUN/Creat Ratio 24.6 RATIO (10-20); Calcium,Total 8.4 mg/dL (7.6-11.0); Carbon Dioxide 23.8 mmol/L (21.0-32.0); Chloride 103 mmol/L (98-108); Estimated Creatinine Clearance 45.80 ml/min (50-250); Glucose 113 mg/dL (70-99); Potassium 3.9 mmol/L (3.3-5.1)
[2025-07-19] MEDS: 0.9% Saline Lock 10 ML Syringe IV (05:04)
--- NOTE | 2025-07-19 05:55 | EKG12_ITS ---
Test Reason : PRE-OP Blood Pressure : */* mmHG Vent. Rate : 69 BPM Atrial Rate : 69 BPM P-R Int : 162 ms QRS Dur : 114 ms QT Int : 414 ms P-R-T Axes : 54 -7 45 degrees QTcB Int : 443 ms Normal sinus rhythm Minimal voltage criteria for LVH, may be normal variant ( [place] product ) Inferior infarct , age undetermined Abnormal ECG No previous ECGs available Confirmed by Dale العراقي ([id number]), order editor JESSE JOHNSON ([id number]) on 07/19/2025 9:15:48 AM Referred By: Sammy Ray Confirmed By: Dale العراقي
--- NOTE | 2025-07-19 10:37 | CASEMGMT ---
ELDA GARCIA Assessment Face to Face with patient for initial transition planning/care coordination assessment. ELDA GARCIA introduced self and role at [facility], pt voices understanding. Pt is A&Ox4 and is resting comfortably in the chair and is calm. Care providers, pharmacy, and demographics verified. Pt is to undergo a thrombectomy today with Dr Ray. Pt was a direct admit from [place] as the pt was to have a hip replacement with Dr Haile Matthew. Admitting dx: IVC thrombosis LACE Strata: 1 PCP: Sarah Buckley Specialists: Dimple Matthew (Ortho), Cory (Vascular) [facility]erred [facility]acy[facility] Insurance: [facility] A/B only. Pt states that he was not satisfied with his secondary insurance that he previously had. Prescription Benefit: None at this time LNOK: Yeimi (Daughter) Living Arrangements: Pt lives alone in a single story home with 3 steps to enter ADLs/IADLs: Pt states that he is indep at baseline and that his daughter is able to support him in times of need Transportation: Self, daughter DME: Access to a cane, FWW, WC, crutches, BSC, shower chair, and BP Machine HHC/SNF: Denies hx or needs Pt?s goal: Home Plan: Thrombectomy today. PT to eval subsequently. Pt plans to return home with his daughter's support and denies HH or OP Tx. Pt plans to follow up with Dr Matthew for the hip replacement once appropriate. Pt states that he feels safe with this plan and denies further questions or concerns. CM to follow rx costs. Liya Matthew RN, CM
[2025-07-19 13:42] LABS: ACT Activated Clotting Time 255 sec (74-137)
--- NOTE | 2025-07-19 17:12 | PCM.OPRPT ---
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 Post-Operative Diagnosis: Same, patent bilateral external iliac veins and bilateral femoral-popliteal veins Thrombus superior to the filter Surgery/Procedure Performed: Venogram inferior vena cava and bilateral lower extremities Intravascular ultrasound inferior vena cava, bilateral common iliac veins, bilateral external iliac veins Percutaneous mechanical thrombectomy inferior vena cava and bilateral common iliac veins gas operator: No Type of Anesthesia: Local and Sedation,Conscious Procedure Start Time: 12:00 Procedure Stop Time: 13:10 Select all DRAINS/GRAFTS/IMPLANTS that apply: None Estimated Blood Loss: 500 Specimen collected: No Description of surgery: HPI: Patient is a 70-year-old male with history of prior VTE who had recently undergone end insertion of inferior vena cava filter for perioperative protection while undergoing planned hip replacement. When he presented for his hip surgery he was noted to appear unwell and was complaining of back and abdominal pain so he was taken to the emergency room at outside facility. They obtained imaging that revealed occlusion of the inferior vena cava filter with dilated inferior vena cava and bilateral iliac veins as well as decompressed vena cava superior to the filter. He was initiated on anticoagulation drip and transferred to this facility he is taken now for planned percutaneous mechanical thrombectomy. Description of procedure: Upon obtaining informed consent and verification of correct patient procedure site the patient was taken to the Verification Lead where he was positioned prepped and draped in usual sterile fashion. Timeout was performed consultation administered Versed and fentanyl. Skin overlying the right popliteal vein was anesthetized 1% lidocaine the vessel accessed under ultrasound guidance with a micropuncture needle wire. This was then exchanged for a micropuncture sheath through which injection femoral-popliteal venogram was performed revealing satisfactory position with no extravasation or dissection. This also revealed patent femoral-popliteal vein though with significantly slowed contrast transit. Through the micropuncture sheath a glide advantage wire was advanced and the micropuncture sheath exchanged for a short 8 [place] sheath. Through the 8 [place] sheath completion venogram outflow of the right lower extremity was performed which revealed occlusion of the common iliac vein IVC. Next skin overlying the left popliteal vein was anesthetized 1% lidocaine the vessel accessed under ultrasound guidance with a micropuncture needle wire. This then exchanged for micropuncture sheath through which hand-injection femoral-popliteal venogram was performed revealing satisfactory position with no extravasation or dissection. This also revealed patent femoral-popliteal vein again with slow contrast transit. Through the micropuncture sheath a glide advantage wire was advanced and the micropuncture sheath exchanged for a short 8 [place] sheath. Through this completion outflow venogram was performed which revealed abrupt occlusion of the common iliac vein and IVC. The glide advantage wires were then navigated into the vena cava and traversed the IVC filter to the cava superior to the filter. The right popliteal 8 [place] sheath was then exchanged for a 17 [place] penumbra sheath advanced over the wire without resistance. The left popliteal 8 [place] sheath was exchanged for a 16 [place] sheath again advanced without resistance. The patient was then bolused with heparin with subsequent heparin dosing based on ACT results. Intravascular ultrasound probe was then advanced via the right popliteal access sheath and recorded pullback performed of the IVC, right common iliac vein, right external iliac vein, right common femoral vein, right femoral vein. This confirmed thrombus from the inferior vena cava filter down to the confluence in the entirety of the right common iliac vein with slow flow visualized but patent external iliac vein, common femoral vein, femoral vein. In addition there was thrombus superior to the filter for approximately 3 cm in length. There was a small amount of mural nonocclusive thrombus in the distal external iliac vein. The intravascular probe was then withdrawn and advanced via the left popliteal access sheath and recorded pullback performed of the IVC, left common iliac vein, left external vein, left common femoral vein, left femoral vein. This revealed occlusion of the vena cava inferior to the filter, left common iliac vein with patent though slow flow identified in the external leg vein, common femoral vein, femoral vein. Next the penumbra percutaneous mechanical thrombectomy device garimaening faviola was brought in field prep for manufactures instructions. It was first advanced via the right popliteal access sheath and positioned superior to the vena cava filter. This was then engaged and swept through the vena cava until device feedback suggested clearance of the thrombus. The intravascular ultrasound probe was then advanced from the left popliteal access to the vena cava above the filter which confirmed clearance of the thrombus. The thrombectomy device was then withdrawn back to the vena cava inferior to the filter and engaged and swept throughout the vena cava and the right common iliac vein until feedback suggested no further thrombus. Repeat venogram confirmed clearance of all thrombus within the inferior vena cava and the right common iliac vein. The device was then withdrawn and advanced via the left popliteal access sheath and again engaged across the extent of the occluded left common iliac vein until device feedback suggested no further thrombus. Repeat venogram confirmed no further thrombus within the left common iliac vein and continued patency of the inferior vena cava and filter. The device was then withdrawn and were recorded pullback performed from each of the popliteal access sheaths of the IVC down to the sheaths which confirmed no residual thrombus. Wires and catheters then withdrawn and 2-0 silk pursestring suture placed at the access sites and the sheaths were removed with satisfactory hemostasis observed after 10 minutes of manual pressure. The patient was then returned to the intensive care unit for hemodynamic and vascular monitoring. Surgical Findings: See above Complications Complications: No
[2025-07-19 20:31] LABS: Partial Thromboplast Time 169.7 Seconds (24.1-36.2)
[2025-07-19] MEDS: HEPARIN/D5w 25,000 UNITS 25,000 UNITS/250 ML IV.SOLN. 5.8 UNITS CONT INF (22:32)
[2025-07-20] VITALS (16 sets, daily range): BP systolic 113–141; BP diastolic 55–70; PULSE 61–92; RESP 15–20; TEMP 36.4–36.8; O2SAT 19–98; BMI 28.4
[2025-07-20 02:33] LABS: Partial Thromboplast Time 39.7 Seconds (24.1-36.2)
[2025-07-20] MEDS: Heparin Nomogram Adjustment 5,000 UNIT/ML VIAL IV (02:40)
[2025-07-20 02:59] LABS: Hematocrit 29.4 % (40-54); Hemoglobin 10.2 g/dL (13.0-16.5); Mean Corp Hgb Conc 34.7 g/dL (32-36); Mean Corpuscular Volume 92.5 fL (80-94); Mean Platelet Vol. 10.1 fl (6.2-12.0); Platelet Count 165 K/mm3 (150-450); RBC Distribution Width CV 13.1 % (11.6-14.6); RBC Distribution Width SD 44.4 fl (35.1-43.9); Red Blood Count 3.18 M/mm3 (4.6-6.2); White Blood Count 7.7 K/mm3 (4.4-11.0)
[2025-07-20 03:44] LABS: Anion Gap 9 (5-15); BUN 33 mg/dL (4-19); BUN/Creat Ratio 23.7 RATIO (10-20); Calcium,Total 8.2 mg/dL (7.6-11.0); Carbon Dioxide 23.6 mmol/L (21.0-32.0); Chloride 106 mmol/L (98-108); Estimated Creatinine Clearance 56.01 ml/min (50-250); Glucose 98 mg/dL (70-99); Potassium 3.8 mmol/L (3.3-5.1)
[2025-07-20 09:18] LABS: Partial Thromboplast Time 72.6 Seconds (24.1-36.2)
[2025-07-20] MEDS: 0.9% Saline Lock 10 ML Syringe IV (10:34)
--- NOTE | 2025-07-20 11:16 | PCM.PN.SRG ---
Subjective Subjective Doing well today. Back pain improved, some aching at access sites. Tolerating diet, voiding/+BM. Objective Data Objective Data A&O x 3, NAD RRR Rest non labored BLE soft, no edema; improved from pre-procedure Access sites soft with no hematoma Vital Signs: Vital Signs Temp Pulse Resp BP Pulse Ox O2 Del Method 97.5 F L 66 18 113/55 L 97 Room Air 07/20/25 01:58 07/20/25 07:00 07/20/25 07:00 07/20/25 07:00 07/20/25 07:00 07/20/25 07:00 Oxygen Delivery Method Room Air Weight: 191 lb 12.835 oz Body Mass Index (BMI) 28.4 Intake & Output: Intake and Output for Last 24 Hours 07/18/25 07/19/25 07/20/25 23:59 23:59 23:59 Intake Total 48.43 / 48.43 4169.90 / 4169.90 74.83 / 74.83 Output Total 550 / 550 300 / 300 Balance 48.43 / 48.43 3619.90 / 3619.90 -225.17 / -225.17 Lab / Micro Data 07/20/25 02:50 07/20/25 02:50 Labs: Laboratory Results - last 24 hr 07/19/25 11:50: Activated Clotting Time 255 H 07/19/25 19:15: APTT 169.7 H* 07/20/25 02:00: APTT 39.7 H 07/20/25 02:50: WBC 7.7, RBC 3.18 L, Hgb 10.2 L, Hct 29.4 L, MCV 92.5, MCH 32.1 H, MCHC 34.7, RDW Std Deviation 44.4 H, RDW Coeff of [place] 13.1, Plt Count 165, MPV 10.1, Sodium 139, Potassium 3.8, Chloride 106, Carbon Dioxide 23.6, Anion Gap 9, BUN 33 H, Creatinine 1.39 H, Estim Creat Clear Calc 56.01, Est GFR (MDRD) Non-Af 55 L, BUN/Creatinine Ratio 23.7 H, Glucose 98, Calcium 8.2 07/20/25 08:55: APTT 72.6 H Assessment & Plan Assessment/Plan (1) IVC thrombosis: PLAN: POD # 1 IVC thrombectomy -tolerating heparin; start Eliquis loading dose -Cr cont to improve; ELIGIO likely from combined dehydration and pre-renal from impaired venous return that compromised pre-load -plan DC later today
--- NOTE | 2025-07-20 11:20 | PCM.DC.SUM ---
Providers Date of Admission: 07/18/25 Primary Care Physician: MAMIE BonnerC Reason For Visit: THROMBOST IVC Diagnosis Discharge Diagnosis (1) IVC thrombosis: Status: Acute Code(s): I82.220 - Acute embolism and thrombosis of inferior vena cava Plan: POD # 1 IVC thrombectomy -tolerating heparin; start Eliquis loading dose -Cr cont to improve; LEIGIO likely from combined dehydration and pre-renal from impaired venous return that compromised pre-load -plan DC later today Medications at Discharge Home Medications hydrocodone 10 mg-acetaminophen 325 mg tablet 1 tab PO Q8 PRN severe pain 07/07/25 losartan 100 mg-hydrochlorothiazide 25 mg tablet 1 tab PO QDAY 07/07/25 apixaban 5 mg (74 tabs) tablets in a dose pack (Eliquis DVT-PE Treat 30D Start) See Rx Instructions PO .COMPLEX #74 tabs 07/20/25 Hospital Course Operations - (Venogram, percutaneous thrombectomy inferior vena cava and bilateral common iliac veins) Summary of Care Provided Hospital Course: Mr. Gu is a 70 yo male who presented to outside hospital with flank pain and ELIGIO. He had imaging that was consistent with IVC filter occlusion with dilated IVC below filter and dilated bilateral common/external iliac veins. He was transferred to his hospital after initiation of heparin and aggressive hydration. He was taken for venogram with thrombectomy on 07/19 which confirmed acute thrombus superior to the filter and extending inferior into the bilateral common iliac veins. Thrombectomy was successful at clearing all clot from the the IVC and iliac veins and he tolerated it well without complications. He returned to the ICU for hemodynamic and vascular monitoring and continuation of his IV anticoagulation. Overnight he did well with resolved pain and leg edema and improved renal function/urine output. He was transitioned to oral anticoagulation and prepared for discharge 07/20. Weight / BMI Weight Weight: 191 lb 12.835 oz Body Mass Index (BMI) 28.4 ABG / Lab / Microbiology Data 07/20/25 02:50 07/20/25 02:50 Laboratory: Laboratory Results - last 24 hr 07/19/25 11:50: Activated Clotting Time 255 H 07/19/25 19:15: APTT 169.7 H* 07/20/25 02:00: APTT 39.7 H 07/20/25 02:50: WBC 7.7, RBC 3.18 L, Hgb 10.2 L, Hct 29.4 L, MCV 92.5, MCH 32.1 H, MCHC 34.7, RDW Std Deviation 44.4 H, RDW Coeff of [place] 13.1, Plt Count 165, MPV 10.1, Sodium 139, Potassium 3.8, Chloride 106, Carbon Dioxide 23.6, Anion Gap 9, BUN 33 H, Creatinine 1.39 H, Estim Creat Clear Calc 56.01, Est GFR (MDRD) Non-Af 55 L, BUN/Creatinine Ratio 23.7 H, Glucose 98, Calcium 8.2 07/20/25 08:55: APTT 72.6 H D/C Instructions May shower in (days): 2 Lifting Restrictions: do not lift > 20 lbs for 14 days Additional Activity Instructions: do not submerge incisions for 14 days Call your doctor if your incision/area has: Sudden Increased Bleeding, Increased Pain/ Swelling, Increased Redness and Foul Smelling Discharge Call your doctor if you observe: Chest pain and Uncontrolled pain Remove Dressing in: 2 days DC O2, CPAP, BIPAP Needs Home O2 Discharge instructions: No Meaningful Use Info Meaningful Use Meaningful Use Diagnoses (Choose all that apply): VTE VTE Anticoag overlap given w/in hospital stay or rx'd at dc?: Yes Pt receive overlap for 5 days?: Yes Discharge Plan Admission Admit Date/Time: 07/18/25 16:10 Attending Provider: Sammy Ray Primary Care Provider: Sarah uBckley NP Discharge Orders/Prescriptions Prescriptions: New Eliquis DVT-PE Treat 30D Start 5 mg (74 tabs) tablets,dose pack See Rx Instructions .ROUTE .COMPLEX Qty: 74 0RF Rx Instructions: orally per package directions Continued hydrocodone-acetaminophen 10-325 mg tablet 1 tab PO Q8 PRN (Reason: severe pain) losartan-hydrochlorothiazide 100-25 mg tablet 1 tab PO QDAY Referrals / Follow Up: Sarah Buckley ADMINISTRATIVE OFFICE CLERK, ADMINISTRATIVE OFFICE CLERK-C [Primary Care Provider, [facility]] Disposition Disposition (needs filled in before D/C Order can be placed): Home, Self Care
[2025-07-20] MEDS: APIXABAN 5 MG TABLET 10 MG PO (12:13)
--- NOTE | 2025-07-20 12:19 | CASEMGMT ---
Addendum entered by Tenisha Cardenas 07/20/25 13:41: TC to Dr. Ray's office, left message on clinical line that pt reports he has 3.5 bottles of eliquis at home. Pt has already used eliquis savings card in the past which is a one time use. Requested Dr. Ray return call. TC to [facility] and obtained directions for eliquis. Received tc back from and received confirmation of eliquis 10 mg po BID for day 1-14, then eliquis 5mg po bid thereafter. Placed this information on the dc instructions for pt. Updated SW who will speak to pt. Original Note: TC to [facility] to check cost of eliquis. Spoke with Jeanette,who states cost of med is $782.19 with a discount card that is on file for pt as he does not have insurance. Gave her information for the eliquis savings card, she states pt used this in November and this is a once in a lifetime use. She states pt has not had a rx for xarelto at this pharmacy in the past. TC to RAMA in ICU. She will check with pt to see if he has any eliquis left at this time. ELDA CM to follow.
--- NOTE | 2025-07-20 14:25 | CASEMGMT ---
Social Work SW collaborated with Dr. Ray and MILTON Steven regarding pt need for blood thinner. SW spoke with pt who states he has been on Eliquis and has 3 to 4 bottles at home. Pt is uncertain of the number of pills or dosage but states he obtained it through his PCP office Sarah Buckley NP. SW explained that he cannot use the 30 day free card as pt has already used this discount and pt acknowledges he has used it and understanding that it cannot be used again. SW explained cost of medication is $782.19 per month. Pt states, I will have to do what I have to do. SW explored with pt if he has finances to cover cost of this medication as it is important he take it. Pt confirms that he can if needed. SW spoke with pt about obtaining prescription coverage through Medicare part D and pt states he is considering this. SW provided pt written information on obtaining Part D information. Phone call to nurse Viri at PCP office who states the dosage that PCP has prescribed is 5 mg. SW spoke with pt RN and updated on situation and requested review specialist Eliquis orders with pt and confirm pt understands dosage to take as well as comparing new instructions with the dosing on the bottles of Eliquis at home. If possible, RN to review with pt's dgt as well. SHELLIE Walker
--- NOTE | 2025-07-20 14:48 | PHA.DC_ITS ---
Pharmacy [facility] has performed discharge medication counseling for this patient. The patient was counseled on the following discharge medications and changes in medications for homegoing review. - Apixaban 5 mg tablet The Reason for Use, instructions for use, and potential side effects were reviewed for all new medications. The patient's questions regarding all of their medications were answered. The patient was able to verbally demonstrate an understanding of their discharge medications. Medications at Discharge Home Medications hydrocodone 10 mg-acetaminophen 325 mg tablet 1 tab PO Q8 PRN severe pain 07/07/25 losartan 100 mg-hydrochlorothiazide 25 mg tablet 1 tab PO QDAY 07/07/25 apixaban 5 mg (74 tabs) tablets in a dose pack (Eliquis DVT-PE Treat 30D Start) See Rx Instructions PO .COMPLEX #74 tabs 07/20/25
--- NOTE | 2025-07-20 15:15 | NURSING ---
Discharge paperwork reviewed with patient and patient daughter. Eliquis prescription thoroughly discussed with written instructions provided as well. Both participants give verbal understanding on plan.
== END 2025-07-20 15:15 | disposition home or self-care (01) | DRG 271 ==
PROVIDERS: Physician Assistant; Admitting Provider Surgery Trauma Surgery; PCP Nurse Practitioner Family; Referring Provider Surgery Trauma Surgery; Visit Provider Surgery Trauma Surgery
DX: I82.220 Acute embolism and thrombosis of inferior vena cava (principal); N17.9 Acute kidney failure, unspecified; I82.413 Acute embolism and thrombosis of femoral vein, bilateral; I82.423 Acute embolism and thrombosis of iliac vein, bilateral; I82.433 Acute embolism and thrombosis of popliteal vein, bilateral; I10 Essential (primary) hypertension; Z79.899 Other long term (current) drug therapy; Z86.711 Personal history of pulmonary embolism; Z86.718 Personal history of other venous thrombosis and embolism
CPT/HCPCS: 36005; 36010; 37187; 37252; 37253; 75822; 75825; 76937; 80048; 85025; 85027; 85347; 85730; 93005; 94668; 94762; 97802; 99152; 99153; C1753; C1769; C1887; C1894; Q9967; A4216; C1757